=== PATIENT | male | born 1955 | race Two or more races ===

== ENCOUNTER → 2020-12-28 13:00 | Outpatient (BNVA) | payer BC, SELFPAY | PROVIDERS: PCP Internal Medicine; Visit Provider Internal Medicine Cardiovascular Disease | DX: I25.10 Atherosclerotic heart disease of native coronary artery without angina pectoris (principal); R06.00 Dyspnea, unspecified; R07.89 Other chest pain | CPT/HCPCS: 93005 ==

== ENCOUNTER → 2021-01-04 08:00 | Outpatient (REF) | payer BC, SELFPAY ==
--- NOTE | 2021-01-04 08:09 | CA_ITS ---
Acquisition Time: 2021-01-04 08:36:58 Total Exercise Time: 00:05:08 Test Indications: Chest Pain Medications: Protocol: SPEEDY Max HR: 148 BPM 94% of Pred: 156 BPM Max BP: 144/076 mmHG Max Work Load: 5.6 METS Exercise stress test using Speedy protocol. Total of 5 min 8 sec, METS 5.10, TAPHR up to 97 %. EKG with PVC's and PAC's, no ischemic changes seen during exercise or in recovery. Normotensive response to exercise. Test reviewed with Dr. Dorado. Referred By: Reji Harry Overread By: Francesca Gimenez NP
== END ==
LOC: HO.CARD 08:00
PROVIDERS: PCP Internal Medicine; Visit Provider Internal Medicine Cardiovascular Disease
DX: I25.10 Atherosclerotic heart disease of native coronary artery without angina pectoris (principal)
CPT/HCPCS: 93016; 93017; 93018

== ENCOUNTER 2021-01-12 11:42 | Outpatient (REF) | payer BC, SELFPAY ==
[2021-01-12 12:22] LABS: Hematocrit 37.6 % (42-52); Hemoglobin 12.8 g/dl (14.0-18.0); Mean Corpuscular Volume 88.1 fL (80-98); Mean Platelet Volume 11.8 fL (9.4-12.4); Platelet Count 156 X10*3/uL (160-400); Red Blood Count 4.27 X10*6/uL (4.60-5.80); Red Cell Distribution Width 13.9 % (11.0-16.0); White Blood Count 5.9 X10*3/uL (4.8-10.8)
[2021-01-12 12:28] LABS: INTERNATIONAL NORM RATIO 1.1 (0.9-1.1); Prothrombin Time 13.6 SEC (10.8-13.0)
[2021-01-12 12:42] LABS: Anion Gap 12 (12-20); Blood Urea Nitrogen 11 mg/dL (9-16); Calcium 9.2 mg/dL (8.4-10.2); Carbon Dioxide 28 mmol/L (22-29); Chloride 106 mmol/L (96-108); Estimated Glomerular Filt Rate > 60; Glucose Random 174 mg/dL (60-115); Potassium 3.6 mmol/L (3.3-5.1); Sodium 142 mmol/L (135-145)
== END 2021-01-12 11:43 | disposition home or self-care (01) ==
LOC: HO.LAB 11:42
PROVIDERS: PCP Internal Medicine; Visit Provider Internal Medicine Cardiovascular Disease
DX: I25.10 Atherosclerotic heart disease of native coronary artery without angina pectoris (principal)
CPT/HCPCS: 36415; 80048; 85027; 85610

== ENCOUNTER → 2021-01-26 14:10 | Outpatient (BNVA) | payer BC, SELFPAY | PROVIDERS: PCP Internal Medicine; Visit Provider Internal Medicine Cardiovascular Disease ==

== ENCOUNTER → 2021-02-02 13:02 | Outpatient (BNVA) | payer BC, SELFPAY | PROVIDERS: PCP Internal Medicine; Visit Provider Internal Medicine Pulmonary Disease ==

== ENCOUNTER 2021-02-16 09:41 | Outpatient (REF) | payer BC, SELFPAY ==
--- NOTE | 2021-02-16 16:20 | PFT_ITS ---
FLOWS: FEV1 of 73% of predicted at 2.56 L. FVC 72% of predicted at 3.30 L. FEV1 to FVC ratio of 0.78. No bronchodilator response. LUNG VOLUMES: Total lung capacity 73% of predicted at 5.12 L. Residual volume 75% of predicted at 1.77 L. Slow vital capacity 71% of predicted at 3.35 L. Expiratory reserve volume 38% of predicted at 0.52 L. Diffusion capacity is moderately decreased, diffusion capacity adjust to being mildly decreased after correction for alveolar ventilation. IMPRESSION: Moderate restrictive ventilatory defect with no bronchodilator response. Decreased expiratory reserve volume suggests extrathoracic restriction likely secondary to abdominal obesity. Decreased diffusion capacity together with decreased total lung capacity suggest underlying pulmonary parenchymal disease. Clinical correlation is advised. MD PAUL Hall/MODL / [phone]
== END 2021-02-16 09:42 | disposition home or self-care (01) ==
LOC: HO.RESP 09:41
PROVIDERS: PCP Internal Medicine; Visit Provider Internal Medicine Pulmonary Disease
DX: J44.9 Chronic obstructive pulmonary disease, unspecified (principal)
CPT/HCPCS: 94060; 94727; 94729

== ENCOUNTER → 2021-02-22 13:06 | Outpatient (BNVA) | payer BC, SELFPAY | PROVIDERS: PCP Internal Medicine; Visit Provider Internal Medicine Pulmonary Disease ==

== ENCOUNTER 2021-06-14 10:58 | Outpatient (REF) | payer MEDICARE, SELFPAY ==
[2021-06-14 12:34] LABS: MANUAL DIFF FLAG NO
[2021-06-14 12:35] LABS: Alanine Aminotransferase 13 U/L (0-40); Albumin Level 4.5 g/dL (3.5-5.0); Alkaline Phosphatase 81 U/L (39-117); Anion Gap 16 (12-20); Aspartate Amino Transferase 23 U/L (5-37); Bilirubin Total 0.6 mg/dL (0.0-1.0); Blood Urea Nitrogen 15 mg/dL (9-16); Calcium 9.9 mg/dL (8.4-10.2); Carbon Dioxide 21 mmol/L (22-29); Chloride 108 mmol/L (96-108); Cholesterol 115 mg/dL; Estimated Glomerular Filt Rate > 60; Glucose Fasting 144 mg/dL (60-99); HDL Cholesterol 37 mg/dL; LDL Cholesterol Calculated 61 mg/dl; Potassium 3.9 mmol/L (3.3-5.1); Sodium 141 mmol/L (135-145); Total Protein 7.5 g/dL (6.5-8.0); Triglycerides 85 mg/dL
[2021-06-14 12:36] LABS: Basophils Absolute Auto 0.1 X10*3/uL (0.0-0.2); Basophils Percent Auto 0.9 % (0-2); Eosinophils Absolute Auto 0.2 X10*3/uL (0.0-0.4); Eosinophils Percent Auto 2.6 % (0-4); Hematocrit 39.3 % (42-52); Hemoglobin 13.3 g/dl (14.0-18.0); Imm Gran Abs Auto 0.01 X10*3/uL (0.00-0.03); Imm Gran Pct Auto 0.2 % (0.0-0.4); Lymphocytes Absolute Auto 2.6 X10*3/uL (1.2-4.9); Lymphocytes Percent Auto 45.8 % (20-40); Mean Corpuscular HGB Conc 33.8 g/dl (31.0-36.0); Mean Corpuscular Hemoglobin 28.5 pg (27.0-33.0); Mean Corpuscular Volume 84.2 fL (80-98); Mean Platelet Volume 12.1 fL (9.4-12.4); Monocytes Absolute Auto 0.4 X10*3/uL (0.1-1.2); Monocytes Percent Auto 7.5 % (2-11); Neutrophils Absolute Auto 2.5 X10*3/uL (2.0-8.3); Platelet Count 166 X10*3/uL (160-400); Red Blood Count 4.67 X10*6/uL (4.60-5.80); Red Cell Distribution Width 14.6 % (11.0-16.0); White Blood Count 5.7 X10*3/uL (4.8-10.8)
[2021-06-14 12:40] LABS: Appearance Urine CLEAR; Color Urine YELLOW; Glucose Urine UA NEG (NEG); Leukocyte Esterase Urine NEG (NEG); Nitrite Urine NEG (NEG); UACC Culture Trigger NO; Urine Blood TRACE (NEG); Urine Ketones NEG (NEG); Urine Protein NEG (NEG-TRACE)
[2021-06-14 12:43] LABS: Estimated Average Glucose 166 mg/dL; Hemoglobin A1c % 7.4 %
[2021-06-14 12:52] LABS: Mucus Urine TRACE /LPF; RBC Urine 0-2 /HPF (0); WBC Urine 0 /HPF (0-4)
[2021-06-14 12:57] LABS: TSH reflex Free T4 0.82 uIU/mL (0.32-4.0)
[2021-06-14 13:14] LABS: Microalbum/Creatinine Ratio Ur 16.5 ug/mg cr
== END 2021-06-14 10:59 | disposition home or self-care (01) ==
LOC: HO.LAB 10:58
PROVIDERS: PCP Internal Medicine; Visit Provider Internal Medicine
DX: I10 Essential (primary) hypertension (principal); E11.9 Type 2 diabetes mellitus without complications; E78.00 Pure hypercholesterolemia, unspecified
CPT/HCPCS: 36415; 80053; 80061; 81001; 82043; 83036; 84443; 85025

== ENCOUNTER 2021-10-10 09:24 | Outpatient (REF) | payer MEDICARE, SELFPAY ==
[2021-10-10 09:56] LABS: MANUAL DIFF FLAG NO
[2021-10-10 10:05] LABS: Basophils Percent Auto 0.7 % (0-2); Eosinophils Absolute Auto 0.2 X10*3/uL (0.0-0.4); Eosinophils Percent Auto 2.7 % (0-4); Hematocrit 40.9 % (42.0-52.0); Hemoglobin 13.5 g/dl (14.0-18.0); Imm Gran Abs Auto 0.01 X10*3/uL (0.00-0.03); Imm Gran Pct Auto 0.2 % (0.0-0.4); Lymphocytes Absolute Auto 2.7 X10*3/uL (1.2-4.9); Mean Corpuscular Hemoglobin 28.5 pg (27.0-33.0); Mean Corpuscular Volume 86.5 fL (80.0-98.0); Mean Platelet Volume 11.3 fL (9.4-12.4); Monocytes Absolute Auto 0.5 X10*3/uL (0.1-1.2); Monocytes Percent Auto 8.2 % (2-11); Neutrophils Absolute Auto 2.3 x10*3/uL (2.0-8.3); Neutrophils Percent Auto 40.2 % (45-73); Platelet Count 158 X10*3/uL (160-400); Red Blood Count 4.73 X10*6/uL (4.60-5.80); Red Cell Distribution Width 14.4 % (11.0-16.0); White Blood Count 5.6 X10*3/uL (4.8-10.8)
[2021-10-10 10:26] LABS: Estimated Average Glucose 200 mg/dL; Hemoglobin A1c % 8.6 %
[2021-10-10 10:34] LABS: Alanine Aminotransferase 19 U/L (0-40); Albumin Level 4.3 g/dL (3.5-5.0); Alkaline Phosphatase 90 U/L (39-117); Anion Gap 10 (12-20); Aspartate Amino Transferase 21 U/L (5-37); Bilirubin Total 0.3 mg/dL (0.0-1.0); Blood Urea Nitrogen 12 mg/dL (9-16); Calcium 9.4 mg/dL (8.4-10.2); Carbon Dioxide 28 mmol/L (22-29); Chloride 107 mmol/L (96-108); Cholesterol 106 mg/dL; Estimated Glomerular Filt Rate > 60; Glucose Fasting 213 mg/dL (60-99); HDL Cholesterol 31 mg/dL; LDL Cholesterol Calculated 61 mg/dl; Potassium 4.1 mmol/L (3.3-5.1); Sodium 141 mmol/L (135-145); Total Protein 7.6 g/dL (6.5-8.0); Triglycerides 70 mg/dL
[2021-10-10 10:45] LABS: Appearance Urine CLEAR; Color Urine YELLOW; Glucose Urine UA NEG (NEG); Leukocyte Esterase Urine NEG (NEG); Nitrite Urine NEG (NEG); PH 5.5 (5.0-8.0); Specific Gravity - Urine 1.025 (1.005-1.025); UACC Culture Trigger NO; Urine Blood TRACE (NEG); Urine Ketones NEG (NEG); Urine Protein TRACE MG/DL (NEG-TRACE)
[2021-10-10 10:55] LABS: TSH reflex Free T4 0.89 uIU/mL (0.32-4.0)
[2021-10-10 10:56] LABS: WBC Urine 0-2 /HPF (0-4)
[2021-10-10 11:02] LABS: Creatinine Urine 199.47 mg/dL; Microalbum/Creatinine Ratio Ur 23.5 ug/mg cr
== END 2021-10-10 09:25 | disposition home or self-care (01) ==
LOC: HO.LAB 09:24
PROVIDERS: PCP Internal Medicine; Visit Provider Internal Medicine
DX: E78.00 Pure hypercholesterolemia, unspecified (principal); E11.9 Type 2 diabetes mellitus without complications; E55.9 Vitamin D deficiency, unspecified; I10 Essential (primary) hypertension
CPT/HCPCS: 36415; 80053; 80061; 81001; 82043; 82306; 83036; 84443; 85025

== ENCOUNTER 2022-01-08 10:06 | Outpatient (REF) | payer MEDICARE, SELFPAY ==
[2022-01-08 10:29] LABS: MANUAL DIFF FLAG NO
[2022-01-08 10:55] LABS: Basophils Percent Auto 0.7 % (0-2); Eosinophils Absolute Auto 0.1 X10*3/uL (0.0-0.4); Eosinophils Percent Auto 2.5 % (0-4); Hematocrit 38.7 % (42.0-52.0); Imm Gran Abs Auto 0.01 X10*3/uL (0.00-0.03); Imm Gran Pct Auto 0.2 % (0.0-0.4); Lymphocytes Absolute Auto 2.7 X10*3/uL (1.2-4.9); Lymphocytes Percent Auto 47.3 % (20-40); Mean Corpuscular HGB Conc 33.6 g/dl (31.0-36.0); Mean Corpuscular Hemoglobin 28.3 pg (27.0-33.0); Mean Corpuscular Volume 84.3 fL (80.0-98.0); Mean Platelet Volume 11.8 fL (9.4-12.4); Monocytes Absolute Auto 0.5 X10*3/uL (0.1-1.2); Neutrophils Absolute Auto 2.3 x10*3/uL (2.0-8.3); Neutrophils Percent Auto 41.3 % (45-73); Platelet Count 162 X10*3/uL (160-400); Red Blood Count 4.59 X10*6/uL (4.60-5.80); Red Cell Distribution Width 14.3 % (11.0-16.0); White Blood Count 5.7 X10*3/uL (4.8-10.8)
[2022-01-08 11:35] LABS: Cholesterol 179 mg/dL; HDL Cholesterol 39 mg/dL; LDL Cholesterol Calculated 118 mg/dl; Triglycerides 113 mg/dL
[2022-01-08 11:38] LABS: Vitamin D 25-OH Total 12.5 ng/mL (>30)
== END 2022-01-08 10:07 | disposition home or self-care (01) ==
LOC: HO.LAB 10:06
PROVIDERS: PCP Internal Medicine; Visit Provider Internal Medicine
DX: I10 Essential (primary) hypertension (principal); E78.00 Pure hypercholesterolemia, unspecified; E55.9 Vitamin D deficiency, unspecified
CPT/HCPCS: 36415; 80061; 82306; 85025

== ENCOUNTER 2022-03-28 09:50 | Outpatient (REF) | payer MEDICARE, SELFPAY ==
[2022-03-28 10:07] LABS: MANUAL DIFF FLAG NO
[2022-03-28 10:17] LABS: Basophils Percent Auto 0.7 % (0-2); Eosinophils Absolute Auto 0.2 X10*3/uL (0.0-0.4); Eosinophils Percent Auto 2.6 % (0-4); Hematocrit 37.2 % (42.0-52.0); Hemoglobin 12.5 g/dl (14.0-18.0); Imm Gran Abs Auto 0.02 X10*3/uL (0.00-0.03); Imm Gran Pct Auto 0.4 % (0.0-0.4); Lymphocytes Absolute Auto 2.5 X10*3/uL (1.2-4.9); Lymphocytes Percent Auto 44.4 % (20-40); Mean Corpuscular HGB Conc 33.6 g/dl (31.0-36.0); Mean Corpuscular Hemoglobin 28.3 pg (27.0-33.0); Mean Corpuscular Volume 84.2 fL (80.0-98.0); Monocytes Absolute Auto 0.4 X10*3/uL (0.1-1.2); Monocytes Percent Auto 6.9 % (2-11); Neutrophils Absolute Auto 2.6 x10*3/uL (2.0-8.3); Platelet Count 164 X10*3/uL (160-400); Red Blood Count 4.42 X10*6/uL (4.60-5.80); White Blood Count 5.7 X10*3/uL (4.8-10.8)
[2022-03-28 10:24] LABS: Estimated Average Glucose 189 mg/dL; Hemoglobin A1c % 8.2 %
[2022-03-28 10:51] LABS: Appearance Urine CLEAR; Color Urine YELLOW; Glucose Urine UA NEG (NEG); Leukocyte Esterase Urine NEG (NEG); Nitrite Urine NEG (NEG); PH 5.5 (5.0-8.0); Specific Gravity - Urine 1.025 (1.005-1.025); UACC Culture Trigger NO; Urine Blood TRACE (NEG); Urine Ketones 5 MG/DL (NEG); Urine Protein NEG (NEG-TRACE)
[2022-03-28 11:00] LABS: Alanine Aminotransferase 13 U/L (0-40); Albumin Level 4.4 g/dL (3.5-5.0); Alkaline Phosphatase 81 U/L (39-117); Anion Gap 12 (12-20); Aspartate Amino Transferase 20 U/L (5-37); Bilirubin Total 0.7 mg/dL (0.0-1.0); Blood Urea Nitrogen 11 mg/dL (9-16); Calcium 9.4 mg/dL (8.4-10.2); Carbon Dioxide 26 mmol/L (22-29); Chloride 107 mmol/L (96-108); Cholesterol 99 mg/dL; Estimated Glomerular Filt Rate > 60; Glucose Fasting 144 mg/dL (60-99); HDL Cholesterol 33 mg/dL; LDL Cholesterol Calculated 51 mg/dl; Potassium 4.2 mmol/L (3.3-5.1); Sodium 141 mmol/L (135-145); Total Protein 7.4 g/dL (6.5-8.0); Triglycerides 76 mg/dL
[2022-03-28 11:14] LABS: RBC Urine 0-2 /HPF (0); Squamous Epithelial Cell Urine TRACE /LPF; WBC Urine 0 /HPF (0-4)
[2022-03-28 11:18] LABS: TSH reflex Free T4 1.03 uIU/mL (0.32-4.0); Vitamin D 25-OH Total 26.6 ng/mL (>30)
[2022-03-28 12:45] LABS: Creatinine Urine 203.23 mg/dL; Microalbum/Creatinine Ratio Ur 10.3 ug/mg cr
== END 2022-03-28 09:51 | disposition home or self-care (01) ==
LOC: HO.LAB 09:50
PROVIDERS: PCP Internal Medicine; Visit Provider Internal Medicine
DX: E55.9 Vitamin D deficiency, unspecified (principal); E11.9 Type 2 diabetes mellitus without complications; E78.00 Pure hypercholesterolemia, unspecified; I10 Essential (primary) hypertension
CPT/HCPCS: 36415; 80053; 80061; 81001; 82043; 82306; 83036; 84443; 85025

== ENCOUNTER 2022-07-21 10:31 | Emergency (ER) | payer MEDICARE, SELFPAY ==
--- NOTE | ~2022-07-21 | XR_ITS ---
EXAMINATION: XR chest 1V CLINICAL INFORMATION: Reason for Exam CHEST PAIN COMPARISON: None TECHNIQUE: One view of the chest FINDINGS: Clear lungs. No pneumothorax or pleural effusion. Normal cardiomediastinal silhouette. Median sternotomy wires. Mediastinal surgical clips. XR/XR chest 1V Impression: * Clear lungs.
--- NOTE | 2022-07-21 10:33 | ECG_ITS ---
Test Reason : CHEST PAIN Blood Pressure : / mmHG Vent. Rate : 085 BPM Atrial Rate : 085 BPM P-R Int : 148 ms QRS Dur : 086 ms QT Int : 348 ms P-R-T Axes : 063 004 063 degrees QTc Int : 414 ms Sinus rhythm with occasional Premature ventricular complexes Nonspecific T wave abnormality Abnormal ECG No previous ECGs available Referred By: Generic ED Physician Electronically Signed By:MAU GLEZ MD
[2022-07-21 10:34] VITALS: BP 119/76; PULSE 88; RESP 18; TEMP 35.6; O2SAT 96; BMI 28.8
[2022-07-21 11:01] LABS: MANUAL DIFF FLAG NO
--- NOTE | 2022-07-21 11:02 | ED.CHESTPAIN ---
HPI - Chest Pain General Chief Complaint: Chest Pain Stated Complaint: chest pain Time Seen by Provider: 07/21/22 10:59 Source: patient Mode of arrival: ambulatory Limitations: no limitations History of Present Illness HPI narrative: 67 yo male with history of CAD s/p CABG two years ago, stable angina, HLD, DM, COPD, obesity, former smoker, eczema who presents to the ER for evaluation of sharp, stabbing chest pain for the couple of days, associated with productive cough, & sore throat. He states he was doing yard work when the pain started. It has been constant since. He radiates across his entire chest rest and both shoulders. He states the pain is worse with coughing and palpation of the chest wall. He feels like he has the flu. He is bringing up white phlegm. He quit 2 years ago after his cardiac surgery but states he is not on any inhalers or meds for his COPD. He denies any SOB or difficulty breathing. No fevers, nausea, vomiting or abdominal pain. MD complaint: chest pain Pertinent past history: coronary artery disease Onset (ago): day(s) (2) Timing of current episode: constant Prior episodes: Yes Onset: during exertion Pain location: substernal Pain radiation: left shoulder and right shoulder Severity: moderate Pain scale (0-10): 6 Quality: sharp Relieving factors: rest Exacerbating factors: inspiration and other (coughing) Context: recent illness (sore throat, runny nose) Associated symptoms: cough Treatment prior to arrival: none Risk Factors Coronary artery disease risk factors: diabetes, smoking history, hyperlipidemia and hypertension Thoracic aortic dissection risk factors: none Related Data Home Medications Medication Instructions Recorded Confirmed furosemide 40 mg tablet 40 mg PO QAM 11/22/20 04/18/22 Previous Rx's Medication Instructions Recorded albuterol sulfate 90 mcg/actuation 2 puff inhalation Q4-6H PRN 02/02/21 aerosol inhaler shortness of breath or wheezing 30 days #1 ea tiotropium 2.5 mcg-olodaterol 2.5 2 puff inhalation DAILY 30 days #1 02/22/21 mcg/actuation mist for inhalation ea (Stiolto Respimat) mometasone 0.1 % topical cream 1 appl topical DAILY 10 days #45 10/17/21 grams amlodipine 5 mg tablet 5 mg PO DAILY 90 days #90 tabs 04/18/22 aspirin 81 mg chewable tablet 81 mg PO DAILY 90 days #90 tabs 04/18/22 atorvastatin 80 mg tablet 80 mg PO BEDTIME 90 days #90 tabs 04/18/22 cholecalciferol (vitamin D3) 50 50 mcg PO DAILY 90 days #90 caps 04/18/22 mcg (2,000 unit) capsule clopidogrel 75 mg tablet 75 mg PO DAILY 90 days #90 tabs 04/18/22 metformin 1,000 mg tablet 1,000 mg PO BID 90 days #180 tabs 04/18/22 metoprolol tartrate 25 mg tablet 12.5 mg PO BID 90 days #90 tabs 04/18/22 triamcinolone acetonide 0.5 % 1 appl topical BID #45 grams 04/18/22 topical cream albuterol sulfate 90 mcg/actuation 1 inh inhalation QID PRN shortness 07/21/22 aerosol inhaler of breath or wheezing #6.7 grams benzonatate 100 mg capsule 100 mg PO TID PRN cough #30 caps 07/21/22 doxycycline hyclate 100 mg tablet 100 mg PO BID 7 days #14 tabs 07/21/22 prednisone 20 mg tablet 40 mg PO DAILY #10 tabs 07/21/22 Allergies Allergy/AdvReac Type Severity Reaction Status Date / Time No Known Allergies Allergy Verified 04/18/22 10:36 Review of Systems Review of Systems: Constitutional: No Fever, No Chills ENT/Mouth: + sore throat, +Rhinorrhea, No Swallowing Difficulty Eyes: No Eye Pain, No Swelling, No Redness Cardiovascular: + Chest Pain, No SOB, No Orthopnea, No Edema Respiratory: + Cough, +Sputum, No Wheezing, No dyspnea Gastrointestinal: No Nausea, No Vomiting, No Diarrhea, No abdominal Pain Genitourinary: No Dysuria, No Urinary Frequency, No Hematuria Musculoskeletal: No joint pain, No Myalgias Skin: No Skin Lesions, No rash Neuro: No Weakness, No Numbness, No Dizziness, No Headache Psych: No Anxiety/Panic, No Depression Heme/Lymph: No Bruising, No Lymphadenopathy Endocrine: No Polyuria, No Polydipsia [facility] Past Medical History Medical History (Updated 07/21/22 @ 12:31 by NASIR Rutledge) Coronary artery disease Diabetes mellitus Eczema of lower leg Ex-smoker Obesity (BMI 30-39.9) Overweight (BMI 25.0-29.9) Pure hypercholesterolemia Surgical History History of cardiac cath S/P CABG (coronary artery bypass graft) (~08/2020) Family History Family History Mother Heart problem Diabetes Father Heart problem Diabetes Other Family history non-contributory Social History Social History Housing: House Alcohol intake: former Patient Tobacco Use Status: Former Tobacco user Second Hand Smoke Exposure: Yes Advance Directives: No Advance Directives Information Provided: No service: No Current occupational status: retired Cognitive needs: No Hearing needs: No Vision needs: Yes Physical Exam Vital Signs: Vital Signs: Last Vital Signs Temp 96.1 F L 07/21/22 10:34 Pulse 86 07/21/22 11:31 Resp 16 07/21/22 11:31 BP 119/76 07/21/22 10:34 Pulse Ox 96 07/21/22 10:34 O2 Del Method 07/21/22 10:34 BMI result Body Mass Index 28.8 Appearance: Alert. Oriented X3. No acute distress. Eyes: Pupils equal, round and reactive to light. ENT: Pharynx normal. Neck: Normal inspection. Neck supple. CVS: Normal heart rate and rhythm. Pulses normal. Anterior chest wall tenderness throughout, mild. Respiratory: No respiratory distress. Breath sounds with expiratory wheeze in the left middle and upper lung rosario. Speaks in complete sentences. Abdomen: Soft and nontender. +BS x4 Skin: Skin warm and dry. Normal skin color. Normal skin turgor. No rashes. Extremities: No lower extremity edema. Neuro: Oriented X 3. No motor deficit. No sensory deficit. Course Course Course Narrative: 67-year-old male with history of CAD s/p CABG, stable angina, COPD, DM, HTN, HLD who presents to the ER with 2 days of chest pain associated with productive cough, runny nose and sore throat. Will need to rule out ACS - EKG without STEMI. Most likely URI related, doubt PE given his other symptoms. Not hypoxic or tachycardic. He has wheezing in his left lung - will treat with albuterol and dose of solumedrol and reassess. CXR, labs pending. Dispo pending results and improvement. Reevaluation(s) Reevaluation #1: No leukocytosis. Chest x-ray is clear. Troponin is 4. Confident this is not cardiac chest pain. Mild MERCEDEZ with BUN/Cr 16/1.41, glucose 272. Giving 1L IVF. His symptoms are more consistent with a viral illness and COPD exacerbation. His aeration is improved after steroids and a nebulizer treatment. His chest pain is improved after Tylenol. Reevaluation #2: Will plan to discharge him on prednisone, antibiotics, albuterol inhaler p.r.n. as well as Tessalon for coughing. He will follow-up with his PCP. He was instructed to come back to the ER if he has any new or worsening chest pains, any other worrisome signs or symptoms. Stable for DC. MDM - Chest Pain Medical Records Data Attestation: I reviewed the patient's medical records. Lab Data Attestation: I reviewed the patient's lab results. Result diagrams: 07/21/22 10:56 07/21/22 10:56 Labs: Lab Results 07/21/22 07/21/22 07/21/22 Range/Units 10:56 10:56 10:56 WBC 4.8 (4.8-10.8) X10*3/uL RBC 4.71 (4.60-5.80) X10*6/uL Hgb 13.1 L (14.0-18.0) g/dl Hct 39.6 L (42.0-52.0) % MCV 84.1 (80.0-98.0) fL MCH 27.8 (27.0-33.0) pg MCHC 33.1 (31.0-36.0) g/dl RDW 14.6 (11.0-16.0) % Plt Count 141 L (160-400) X10*3/uL MPV 11.6 (9.4-12.4) fL Immature Gran % (Auto) 0.2 (0.0-0.4) % Neut % (Auto) 52.1 (45-73) % Lymph % (Auto) 32.8 (20-40) % Forest % (Auto) 10.6 (2-11) % Eos % (Auto) 3.3 (0-4) % Baso % (Auto) 1.0 (0-2) % Lymph # (Auto) 1.6 (1.2-4.9) X10*3/uL Forest # (Auto) 0.5 (0.1-1.2) X10*3/uL Eos # (Auto) 0.2 (0.0-0.4) X10*3/uL Baso # (Auto) 0.1 (0.0-0.2) X10*3/uL Abs Immat Gran (auto) 0.01 (0.00-0.03) X10*3/uL Absolute Neuts (auto) 2.5 (2.0-8.3) x10*3/uL Absolute Nucleated RBC 0.000 (0.0-0.012) X10*3/uL Nucleated RBC % (auto) 0.0 (0.0-0.2) /100WBC Sodium 140 (135-145) mmol/L Potassium 4.3 (3.3-5.1) mmol/L Chloride 102 (96-108) mmol/L Carbon Dioxide 23 (22-29) mmol/L Anion Gap 19 (12-20) BUN 16 (9-16) mg/dL Creatinine 1.41 H (0.5-1.4) mg/dL Estim Creat Clear Calc 51.5 Estimated GFR 50 Random Glucose 272 H D (60-115) mg/dL Calcium 9.8 (8.4-10.2) mg/dL Troponin I High Sens 4.0 (<3.5-35.0) ng/L Procalcitonin ng/mL COVID-19 (FLORENCIA) (Negative) COVID-19 Clin Com Influenza Type A (KEVIN) (Negative) Influenza Type B (KEVIN) (Negative) Influenza A & B Note 07/21/22 07/21/22 07/21/22 Range/Units 10:56 10:56 11:50 WBC (4.8-10.8) X10*3/uL RBC (4.60-5.80) X10*6/uL Hgb (14.0-18.0) g/dl Hct (42.0-52.0) % MCV (80.0-98.0) fL MCH (27.0-33.0) pg MCHC (31.0-36.0) g/dl RDW (11.0-16.0) % Plt Count (160-400) X10*3/uL MPV (9.4-12.4) fL Immature Gran % (Auto) (0.0-0.4) % Neut % (Auto) (45-73) % Lymph % (Auto) (20-40) % Forest % (Auto) (2-11) % Eos % (Auto) (0-4) % Baso % (Auto) (0-2) % Lymph # (Auto) (1.2-4.9) X10*3/uL Forest # (Auto) (0.1-1.2) X10*3/uL Eos # (Auto) (0.0-0.4) X10*3/uL Baso # (Auto) (0.0-0.2) X10*3/uL Abs Immat Gran (auto) (0.00-0.03) X10*3/uL Absolute Neuts (auto) (2.0-8.3) x10*3/uL Absolute Nucleated RBC (0.0-0.012) X10*3/uL Nucleated RBC % (auto) (0.0-0.2) /100WBC Sodium (135-145) mmol/L Potassium (3.3-5.1) mmol/L Chloride (96-108) mmol/L Carbon Dioxide (22-29) mmol/L Anion Gap (12-20) BUN (9-16) mg/dL Creatinine (0.5-1.4) mg/dL Estim Creat Clear Calc Estimated GFR Random Glucose (60-115) mg/dL Calcium (8.4-10.2) mg/dL Troponin I High Sens (<3.5-35.0) ng/L Procalcitonin 0.20 ng/mL COVID-19 (FLORENCIA) Negative (Negative) COVID-19 Clin Com See Note Influenza Type A (KEVIN) Negative (Negative) Influenza Type B (KEVIN) Negative (Negative) Influenza A & B Note See Note ECG Data ECG #1: Attestation: I personally reviewed and interpreted this ECG as follows: ECG interpretation date: 07/21/22 ECG interpretation time: 11:06 Prior ECG tracings: available for review Interpretation: Sinus rhythm with occasional PVCs, ventricular rate 85 beats per minute, normal NC interval, T-wave inversion in V1 and V2, no ST segment elevations or depressions. Discharge Plan Discharge Clinical Impression: Acute chest wall pain, COPD exacerbation, Acute viral syndrome Patient Disposition: Home, Self-Care Instructions: COPD (Chronic Obstructive Pulmonary Disease) (ED), Viral Syndrome (ED), Chest Wall Pain (ED) Additional Instructions: Your lab workup today was unremarkable. You had some wheezing on examination consistent with COPD. Recommend taking the prescribed steroids to help your lungs. Take the prescribed antibiotic for COPD exacerbation. Your x-ray did not show any evidence of pneumonia. Urine negative for influenza and COVID-19. Your symptoms are most likely due to another viral illness. Rest and drink plenty of fluids. Take [id number] cold and flu medications as needed for your symptoms. Prescriptions: New albuterol sulfate 90 mcg/actuation HFA aerosol inhaler 1 inh inhalation QID PRN (Reason: shortness of breath or wheezing) Qty: 6.7 0RF prednisone 20 mg tablet 40 mg PO DAILY Qty: 10 0RF doxycycline hyclate 100 mg tablet 100 mg PO BID 7 Days Qty: 14 0RF benzonatate 100 mg capsule 100 mg PO TID PRN (Reason: cough) Qty: 30 0RF No Action mometasone 0.1 % cream 1 appl topical DAILY 10 Days Qty: 45 1RF furosemide 40 mg tablet 40 mg PO QAM amlodipine 5 mg tablet 5 mg PO DAILY 90 Days Qty: 90 1RF aspirin 81 mg tablet,chewable 81 mg PO DAILY 90 Days Qty: 90 3RF atorvastatin 80 mg tablet 80 mg PO BEDTIME 90 Days Qty: 90 1RF clopidogrel 75 mg tablet 75 mg PO DAILY 90 Days Qty: 90 1RF metformin 1,000 mg tablet 1,000 mg PO BID 90 Days Qty: 180 1RF metoprolol tartrate 25 mg tablet 12.5 mg PO BID 90 Days Qty: 90 3RF triamcinolone acetonide 0.5 % cream 1 appl topical BID Qty: 45 1RF cholecalciferol (vitamin D3) 50 mcg (2,000 unit) capsule 50 mcg PO DAILY 90 Days Qty: 90 3RF albuterol sulfate 90 mcg/actuation HFA aerosol inhaler 2 puff inhalation Q4-6H PRN (Reason: shortness of breath or wheezing) 30 Days Qty: 1 3RF Stiolto Respimat 2.5-2.5 mcg/actuation mist 2 puff inhalation DAILY 30 Days Qty: 1 6RF
[2022-07-21 11:03] LABS: Basophils Absolute Auto 0.1 X10*3/uL (0.0-0.2); Eosinophils Absolute Auto 0.2 X10*3/uL (0.0-0.4); Eosinophils Percent Auto 3.3 % (0-4); Hematocrit 39.6 % (42.0-52.0); Hemoglobin 13.1 g/dl (14.0-18.0); Imm Gran Abs Auto 0.01 X10*3/uL (0.00-0.03); Imm Gran Pct Auto 0.2 % (0.0-0.4); Lymphocytes Absolute Auto 1.6 X10*3/uL (1.2-4.9); Lymphocytes Percent Auto 32.8 % (20-40); Mean Corpuscular HGB Conc 33.1 g/dl (31.0-36.0); Mean Corpuscular Hemoglobin 27.8 pg (27.0-33.0); Mean Corpuscular Volume 84.1 fL (80.0-98.0); Mean Platelet Volume 11.6 fL (9.4-12.4); Monocytes Absolute Auto 0.5 X10*3/uL (0.1-1.2); Monocytes Percent Auto 10.6 % (2-11); Neutrophils Absolute Auto 2.5 x10*3/uL (2.0-8.3); Neutrophils Percent Auto 52.1 % (45-73); Platelet Count 141 X10*3/uL (160-400); Red Blood Count 4.71 X10*6/uL (4.60-5.80); Red Cell Distribution Width 14.6 % (11.0-16.0); White Blood Count 4.8 X10*3/uL (4.8-10.8)
[2022-07-21 11:18] LABS: COVID-19 Test Negative (Negative); IDNOW Serial# 16C4AD1C
[2022-07-21 11:19] LABS: Anion Gap 19 (12-20); Blood Urea Nitrogen 16 mg/dL (9-16); Calcium 9.8 mg/dL (8.4-10.2); Carbon Dioxide 23 mmol/L (22-29); Chloride 102 mmol/L (96-108); Creatinine Clr Calc Pharmacy 51.5; Estimated Glomerular Filt Rate 50; Glucose Random 272 mg/dL (60-115); Potassium 4.3 mmol/L (3.3-5.1); Sodium 140 mmol/L (135-145)
[2022-07-21] MEDS: Albuterol Sulfate 2.5 MG, Albuterol Sulfate (0.083%) 2.5 MG 5 MG INHALE (11:30)
[2022-07-21 11:31] VITALS: PULSE 86; RESP 16; O2SAT 96
[2022-07-21] MEDS: 0.9 % Sodium Chloride 1,000 ML 999 ML IVCONT (12:04)
[2022-07-21] MEDS: Aspirin 81 MG TAB.CHEW 162 MG PO (12:08)
[2022-07-21] MEDS: methylPREDNISolone Sod Succ 40 MG/ML VIAL IVPUSH (12:08)
[2022-07-21] MEDS: Acetaminophen 325 MG TABLET 975 MG PO (12:08)
[2022-07-21 12:10] LABS: IDNOW Serial# 9DB6401D; Influenza A Negative (Negative); Influenza B2 Negative (Negative)
[2022-07-21 14:05] VITALS: BP 125/67; PULSE 84; RESP 14; TEMP 36.8; O2SAT 96
== END 2022-07-21 14:09 | disposition home or self-care (01) ==
PROVIDERS: Physician Assistant; Emergency Provider Emergency Medicine; PCP Internal Medicine
DX: B34.9 Viral infection, unspecified (principal); R07.89 Other chest pain; J44.1 Chronic obstructive pulmonary disease with (acute) exacerbation; Z20.822 Contact with and (suspected) exposure to COVID-19; E11.9 Type 2 diabetes mellitus without complications; I10 Essential (primary) hypertension; E78.5 Hyperlipidemia, unspecified; Z87.891 Personal history of nicotine dependence; Z79.02 Long term (current) use of antithrombotics/antiplatelets; Z79.84 Long term (current) use of oral hypoglycemic drugs; Z79.899 Other long term (current) drug therapy
CPT/HCPCS: 36415; 71045; 80048; 84145; 84484; 85025; 87502; 87635; 93005; 94640; 96374; 99284; 99285; J2920

== ENCOUNTER 2022-12-19 10:53 | Outpatient (REF) | payer MEDICARE, SELFPAY ==
[2022-12-19 11:14] LABS: MANUAL DIFF FLAG NO
[2022-12-19 11:48] LABS: Estimated Average Glucose 192 mg/dL; Hemoglobin A1c % 8.3 %
[2022-12-19 11:56] LABS: Basophils Absolute Auto 0.1 X10*3/uL (0.0-0.2); Eosinophils Absolute Auto 0.2 X10*3/uL (0.0-0.4); Eosinophils Percent Auto 2.4 % (0-4); Hematocrit 40.7 % (42.0-52.0); Hemoglobin 13.4 g/dl (14.0-18.0); Imm Gran Abs Auto 0.01 X10*3/uL (0.00-0.03); Imm Gran Pct Auto 0.2 % (0.0-0.4); Lymphocytes Percent Auto 48.6 % (20-40); Mean Corpuscular HGB Conc 32.9 g/dl (31.0-36.0); Mean Corpuscular Hemoglobin 27.9 pg (27.0-33.0); Mean Corpuscular Volume 84.8 fL (80.0-98.0); Mean Platelet Volume 12.2 fL (9.4-12.4); Monocytes Absolute Auto 0.4 X10*3/uL (0.1-1.2); Monocytes Percent Auto 6.5 % (2-11); Neutrophils Absolute Auto 2.5 x10*3/uL (2.0-8.3); Neutrophils Percent Auto 41.3 % (45-73); Platelet Count 183 X10*3/uL (160-400); Red Cell Distribution Width 14.5 % (11.0-16.0); White Blood Count 6.1 X10*3/uL (4.8-10.8)
[2022-12-19 11:58] LABS: Appearance Urine Clear; Color Urine Yellow; Glucose Urine UA 100 mg/dL (Negative); Leukocyte Esterase Urine Negative (Negative); Nitrite Urine Negative (Negative); Urine Blood Negative (Negative); Urine Ketones Trace mg/dL (Negative); Urine Protein Negative (Neg-Trace)
[2022-12-19 12:11] LABS: Alanine Aminotransferase 16 U/L (0-40); Albumin Level 4.5 g/dL (3.5-5.0); Alkaline Phosphatase 76 U/L (39-117); Anion Gap 16 (12-20); Aspartate Amino Transferase 27 U/L (5-37); Bilirubin Total 0.7 mg/dL (0.0-1.0); Blood Urea Nitrogen 15 mg/dL (9-16); Carbon Dioxide 26 mmol/L (22-29); Chloride 106 mmol/L (96-108); Cholesterol 127 mg/dL; Estimated Glomerular Filt Rate > 60; Glucose Fasting 183 mg/dL (60-99); HDL Cholesterol 39 mg/dL; LDL Cholesterol Calculated 73 mg/dl; Potassium 4.5 mmol/L (3.3-5.1); Sodium 143 mmol/L (135-145); Total Protein 7.4 g/dL (6.5-8.0); Triglycerides 77 mg/dL
[2022-12-19 12:16] LABS: TSH reflex Free T4 1.16 uIU/mL (0.32-4.0); Vitamin D 25-OH Total 50.2 ng/mL (>30)
[2022-12-19 12:45] LABS: Creatinine Urine 221.45 mg/dL
== END 2022-12-19 10:54 | disposition home or self-care (01) ==
LOC: HO.LAB 10:53
PROVIDERS: PCP Internal Medicine; Visit Provider Internal Medicine
DX: E78.00 Pure hypercholesterolemia, unspecified (principal); E11.9 Type 2 diabetes mellitus without complications; E55.9 Vitamin D deficiency, unspecified; I10 Essential (primary) hypertension
CPT/HCPCS: 36415; 80053; 80061; 81003; 82043; 82306; 83036; 84443; 85025

== ENCOUNTER 2023-01-01 12:00 | Outpatient (REF) | payer MEDICARE, SELFPAY ==
[2023-01-01 14:14] LABS: Sickle Cell Scr POSITIVE (NEGATIVE)
[2023-01-04 15:13] LABS: Hematocrit 39.2 % (38.5-50.0); Hemoglobin 13.3 g/dL (13.2-17.1); MCH 28.6 pg (27.0-33.0); MCV 84.3 fL (80.0-100.0); RBC 4.65 Million/uL (4.20-5.80); RDW 14.3 % (11.0-15.0)
== END 2023-01-01 12:01 | disposition home or self-care (01) ==
LOC: HO.LAB 12:00
PROVIDERS: PCP Internal Medicine; Visit Provider Internal Medicine
DX: D64.9 Anemia, unspecified (principal); Z83.2 Family history of diseases of the blood and blood-forming organs and certain disorders involving the immune mechanism
CPT/HCPCS: 36415; 83020; 85014; 85018; 85041; 85660

== ENCOUNTER → 2023-03-21 13:49 | Outpatient (BNVA) | payer MEDICARE, SELFPAY | PROVIDERS: PCP Internal Medicine; Referring Provider Internal Medicine; Visit Provider Nurse Practitioner Family | DX: I25.118 Atherosclerotic heart disease of native coronary artery with other forms of angina pectoris (principal); I49.3 Ventricular premature depolarization; E78.00 Pure hypercholesterolemia, unspecified; E11.9 Type 2 diabetes mellitus without complications; Z95.1 Presence of aortocoronary bypass graft | CPT/HCPCS: 93005; 99212 ==

== ENCOUNTER 2023-03-25 10:00 | Outpatient (REF) | payer MEDICARE, SELFPAY ==
[2023-03-25 10:18] LABS: MANUAL DIFF FLAG NO
[2023-03-25 10:44] LABS: Basophils Absolute Auto 0.1 X10*3/uL (0.0-0.2); Basophils Percent Auto 0.9 % (0-2); Eosinophils Absolute Auto 0.2 X10*3/uL (0.0-0.4); Hematocrit 40.5 % (42.0-52.0); Hemoglobin 13.5 g/dl (14.0-18.0); Imm Gran Abs Auto 0.01 X10*3/uL (0.00-0.03); Imm Gran Pct Auto 0.2 % (0.0-0.4); Lymphocytes Absolute Auto 2.6 X10*3/uL (1.2-4.9); Lymphocytes Percent Auto 44.4 % (20-40); Mean Corpuscular HGB Conc 33.3 g/dl (31.0-36.0); Mean Corpuscular Hemoglobin 28.3 pg (27.0-33.0); Mean Corpuscular Volume 84.9 fL (80.0-98.0); Mean Platelet Volume 12.1 fL (9.4-12.4); Monocytes Absolute Auto 0.4 X10*3/uL (0.1-1.2); Monocytes Percent Auto 6.9 % (2-11); Neutrophils Absolute Auto 2.6 x10*3/uL (2.0-8.3); Neutrophils Percent Auto 44.6 % (45-73); Platelet Count 174 X10*3/uL (160-400); Red Blood Count 4.77 X10*6/uL (4.60-5.80); Red Cell Distribution Width 14.6 % (11.0-16.0); White Blood Count 5.8 X10*3/uL (4.8-10.8)
[2023-03-25 10:55] LABS: Appearance Urine Clear; Color Urine Yellow; Glucose Urine UA >=1000 mg/dL (Negative); Leukocyte Esterase Urine Negative (Negative); Nitrite Urine Negative (Negative); PH 5.5 (5.0-9.0); UMIC TRIGGER UACC YES; Urine Blood Negative (Negative); Urine Ketones Negative (Negative); Urine Protein Negative (Neg-Trace)
[2023-03-25 11:02] LABS: Bacteria Urine None Seen (None Seen); Hyaline Casts Urine 0-2 /LPF (0-2); RBC Urine 0-2 /HPF (0-2); Squamous Epithelial Cell Urine 0-2 /HPF (0-2); WBC Urine 0-5 /HPF (0-5)
[2023-03-25 11:23] LABS: Estimated Average Glucose 137 mg/dL; Hemoglobin A1c % 6.4 %
[2023-03-25 11:52] LABS: Creatinine Urine 117.63 mg/dL
[2023-03-25 11:56] LABS: Alanine Aminotransferase 14 U/L (0-40); Albumin Level 4.4 g/dL (3.5-5.0); Alkaline Phosphatase 65 U/L (39-117); Anion Gap 16 (12-20); Aspartate Amino Transferase 22 U/L (5-37); Bilirubin Total 0.7 mg/dL (0.0-1.0); Blood Urea Nitrogen 19 mg/dL (9-16); Calcium 10.1 mg/dL (8.4-10.2); Carbon Dioxide 23 mmol/L (22-29); Chloride 108 mmol/L (96-108); Cholesterol 99 mg/dL; Estimated Glomerular Filt Rate > 60; Glucose Fasting 131 mg/dL (60-99); HDL Cholesterol 33 mg/dL; LDL Cholesterol Calculated 53 mg/dl; Potassium 3.7 mmol/L (3.3-5.1); Sodium 143 mmol/L (135-145); Total Protein 7.7 g/dL (6.5-8.0); Triglycerides 67 mg/dL
[2023-03-25 12:13] LABS: TSH reflex Free T4 0.98 uIU/mL (0.32-4.0); Vitamin D 25-OH Total 60.8 ng/mL (>30)
== END 2023-03-25 10:01 | disposition home or self-care (01) ==
LOC: HO.LAB 10:00
PROVIDERS: PCP Internal Medicine; Visit Provider Internal Medicine
DX: I10 Essential (primary) hypertension (principal); E55.9 Vitamin D deficiency, unspecified; E11.9 Type 2 diabetes mellitus without complications; E78.00 Pure hypercholesterolemia, unspecified
CPT/HCPCS: 36415; 80053; 80061; 81001; 82043; 82306; 83036; 84443; 85025

== ENCOUNTER → 2023-03-28 14:51 | Outpatient (REF) | payer MEDICARE, SELFPAY ==
--- NOTE | 2023-03-28 14:55 | CA_ITS ---
Transthoracic Echocardiogram Patient (Last, First, Middle): Aram Mcnamara, Gender: Male Date of : 1955 Age: 68 Procedure Date: 03/28/2023 Procedure Type: Transthoracic Echocardiogram Location: OP Height: 177.8 cm Weight: 88.91 kg BSA: 2.07 m2 Heart Rate: 60 bpm BP: 126 / 80 mmHg Brick Paver: SB Referring MD: Jessica Fitzpatrick [employer] Symptoms: Z95.1 - Presence of aortocoronary bypass graft Study Quality: Technically Difficult ECG Rhythm: Sinus with PVCs Conclusions: - The left ventricular systolic function is moderately decreased. The visually estimated ejection fraction is between 35-40%. - There is evidence of regional wall motion abnormalities. - No obvious valvular pathology seen on this study. Findings Procedure Information The quality of the study was technically difficult. The study quality is limited by patients body habitus. Left Ventricle Normal left ventricular cavity size. There is normal left ventricular wall thickness. The left ventricular systolic function is moderately decreased. The visually estimated ejection fraction is between 35-40%. There is evidence of regional wall motion abnormalities. Evidence suggests grade I (mild) diastolic dysfunction. Wall Motion Rest Echo Findings The inferoseptal wall and mid inferior segment are hypokinetic. The inferolateral wall and basal inferior segment are akinetic. Right Ventricle Normal right ventricular cavity size. There is moderately decreased right ventricular systolic function. Atria Both atria are normal in size. Aortic Valve There is a normal trileaflet aortic valve. There is mild calcification of the aortic valve. There is no aortic valve stenosis. There is no aortic valve regurgitation. Mitral Valve There is mild mitral annular calcification. There is mild mitral valve regurgitation. There is no mitral valve stenosis. Pulmonic Valve The pulmonic valve is likely normal. Tricuspid Valve There is mild tricuspid valve regurgitation. There is no evidence of pulmonary hypertension. Great Vessels The asc aorta is normal in size. Venous The inferior vena cava is normal in size and collapses greater than 50% with inspiration. Prior Study Comparison No prior study available for comparison. Recommendations, Care & Conclusions No obvious valvular pathology seen on this study. Measurements 2D Linear Measurements IVSd: 0.87 0.6-0.9/0.6-1.0 cm LVIDd: 5.46 3.9-5.3/4.2-5.9 cm LVIDd Index: 2.64 2.4-3.2/2.2-3.1 cm/m2 LVIDs: 4.52 2.0-3.6 cm LVPWd: 0.80 0.7-1.1 cm LA Diam: 4.40 2.7-3.8/3.0-4.0 cm LAIDs Index: 2.13 1.5-2.3 cm/m2 LV Mass: 206.89 67-162/88-224 g LV Mass Index: 99.95 43-95/49-115 g/m2 LVOT Diam: 2.50 3.0+(-)1.3 cm 2D Systolic Function EF 4C: 38.90 >55% Mitral Valve MV VTI: 0.35 MV Pk Home: 0.76 MV Mn Home: 0.49 MV Pk Grad: 2.00 MV Mn Grad: 1.00 MV Pk E: 0.77 MV PK A: 0.80 MV Decel Time: 190.00 E/A: 1.00 E'Lateral: 7.94 E'Medial: 6.20 E/E' Med: 12.40 E/E' Lat: 9.70 PHT: 56.00 MVA PHT: 3.93 MVA Continuity: 2.16 Decel Mineral: 4.06 Aortic Valve AoV Pk Home: 0.96 AoV Pk Grad: 4.00 DOUGLAS: 3.60 LVOT LVOT Pk Home: 0.70 LVOT Mn Home: 0.49 LVOT VTI: 0.15 LVOT Pk Grad: 2.00 LVOT Mn Grad: 1.00 LVOT Diam: 2.50 LVOT Area: 4.91 Diastolic Function MV Pk E: 0.77 MV Pk A: 0.80 E/A: 1.00 E'Medial: 6.20 E/E' Med: 12.40 E' Laterial: 7.94 E/E' Lat: 9.70 Right Ventricle TAPSE (mm): 10.10 TVS' Home: 6.70 Tricuspid Valve TR Pk Home: 2.29 TR Pk Grad: 21.00 RA Press: 3.00 RVSP: 24.00 Great Vessels Aorta Sinus of Valsalva: 3.80 2.0-3.5 cm Ao Asc: 3.10 2.1-3.4 cm Pulmonary Valve PV Pk Home: 0.71 Peak PV Grad: 2.00 Updated in Other Vendor System with Status of Final Kendrick Dorado MD electronically signed on 03/30/2023 10:10:15 AM with status of Final
--- NOTE | 2023-03-28 14:55 | HM_ITS ---
* Total monitoring time about 3 days. * Underlying rhythm is sinus. Average ventricular rate 71/Min. Range 46 to 109/Min. * Frequent ventricular ectopy with a burden of 1.8%. Two couplets. * Rare supraventricular ectopy. * No significant pauses or AV blocks. * No patient markers or events in diary. MTDD
== END ==
LOC: HO.CARD 14:51
PROVIDERS: PCP Internal Medicine; Visit Provider Nurse Practitioner Family
DX: I49.3 Ventricular premature depolarization (principal); Z95.1 Presence of aortocoronary bypass graft
CPT/HCPCS: 93242; 93306

== ENCOUNTER → 2023-04-22 10:01 | Outpatient (REF) | payer MEDICARE, SELFPAY ==
--- NOTE | ~2023-04-22 | NM_ITS ---
EXERCISE MYOCARDIAL PERFUSION STUDY INDICATION: Coronary disease, history of bypass surgery, cardiomyopathy, assess for ischemia TECHNIQUE: The patient was brought in for an exercise perfusion study on 04/22/2023. Patient performed exercise as per Justyn protocol and was injected 25 mCi of sestamibi once target heart rate was achieved. Images were obtained using the SPECT gamma camera interlaced with the gating device. Images were obtained in supine position. Resting perfusion study was performed on 04/24/2023. Patient was administered 25 mCi of sestamibi intravenously at rest. Images were then obtained in supine position. Images were processed with the software and compared side to side in short axis, horizontal long axis and vertical long axis views. Total DLP 86mGy-cm. FINDINGS: Raw images were reviewed. The stress perfusion study showed diminished tracer uptake in the basal to mid lateral wall, inferolateral wall. There is some improvement with CT attenuation correction and could indicate components of soft tissue attenuation artifact. There is suggestion of subdiaphragmatic tracer uptake The gated study shows normal LV systolic function with calculated LVEF of 64%. LV cavity is normal in size. The gated study shows diminished contractility in the basal to mid lateral/inferolateral wall. Resting study shows diminished tracer uptake in the basal to mid inferior/inferolateral wall.. There is improvement with CT attenuation correction. There is also suggestion of sub diaphragmatic tracer uptake. Gating at rest reveals LVEF 48%. There is reduced contractility in the distal anterior wall and ocular that is artifactual. The findings are consistent with fixed defect in the basal to mid inferolateral and adjacent lateral wall. NM/NM cardiolite stress test IMPRESSION: 1. Myocardial perfusion imaging study shows transmural infarction involving the basal to mid inferolateral/adjacent lateral wall. 2. Gated LVEF is 64% during stress and 48% during rest. Correlate with echocardiogram. 3. Transient ischemic dilatation not present. EKG component of the test reported separately.
--- NOTE | 2023-04-22 10:05 | CA_ITS ---
Acquisition Time: 2023-04-22 10:24:50 Total Exercise Time: 00:05:58 Test Indications: ABN ECHO, ABN EKG Medications: SEE H Protocol: SPEEDY Max HR: 144 BPM 94% of Pred: 153 BPM Max BP: 148/078 mmHG Max Work Load: 7.0 METS Exercise stress test exercise 5 min 58 sec of Speedy protocol achieivng 94% MPHR, with mild SOB, without chest discofmort, without arrhythmias, with normotensive response to exercise, without EKG changes. Nuclear images pending. Test reviewed with Dr. Harry. Referred By: Jessica Fitzpatrick Overread By: Reji Harry
== END ==
LOC: HO.CARD 10:01
PROVIDERS: PCP Internal Medicine; Visit Provider Nurse Practitioner Family
DX: I25.118 Atherosclerotic heart disease of native coronary artery with other forms of angina pectoris (principal); R93.1 Abnormal findings on diagnostic imaging of heart and coronary circulation; Z95.1 Presence of aortocoronary bypass graft
CPT/HCPCS: 78452; 93017; A9500

== ENCOUNTER → 2023-04-22 10:05 | Outpatient (BNV) | payer MEDICARE, SELFPAY | PROVIDERS: PCP Internal Medicine; Visit Provider Internal Medicine Cardiovascular Disease | DX: I25.118 Atherosclerotic heart disease of native coronary artery with other forms of angina pectoris (principal) | CPT/HCPCS: 78452; 93016; 93018 ==

== ENCOUNTER → 2023-05-23 09:34 | Outpatient (BNVA) | payer MEDICARE, SELFPAY | PROVIDERS: PCP Internal Medicine; Referring Provider Internal Medicine; Visit Provider Internal Medicine Cardiovascular Disease ==

== ENCOUNTER 2023-06-05 12:08 | Outpatient (AMB) | payer MEDICARE, SELFPAY ==
[2023-06-05 12:20] VITALS: BP 110/76; PULSE 64; O2SAT 93; BMI 31.6
--- NOTE | 2023-06-05 12:20 | A.OFFPC_ITS ---
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 Required: No Accompanied by: Self / Same As Patient Allergies No Known Allergies Allergy (Verified 06/05/23 12:53) Medication List - Last Reconciled 06/05/23 by Mike Myers MD albuterol sulfate 90 mcg/actuation 1 inh inhalation QID PRN albuterol sulfate 90 mcg/actuation 2 puffs inhalation Q4-6H PRN 30 days aspirin 81 mg PO DAILY 90 days atorvastatin 80 mg PO BEDTIME 90 days benzonatate 100 mg PO TID PRN cholecalciferol (vitamin D3) 50 mcg PO DAILY 90 days clopidogrel 75 mg PO DAILY 90 days Farxiga (dapagliflozin propanediol) 5 mg PO QAM 30 days NS metformin 1,000 mg PO BID 90 days metoprolol succinate ER 25 mg PO DAILY mometasone 0.1% 1 appl topical DAILY 10 days sacubitril-valsartan 24-26 mg (Entresto) 1 tab PO BID tiotropium-olodaterol 2.5-2.5 mcg/actuation (Stiolto Respimat) 2 puffs inhalation DAILY 30 days triamcinolone acetonide 0.5% 1 appl topical BID Tobacco use date assessed: 06/05/23 Fall risk assessment: No Falls in past year Last assessed Fall Risk: 06/05/23 Dental Screening Dental Screen Date: 06/05/23 Did you have a dental visit in the last 12 months?: No Did you have a dental problem in the last 6 months where you did not have access to dental care?: No Was dental information given to patient?: No HPI PE HPI Details Patient comes in today for his annual physical examination States that he feels okay He denies any headaches or dizziness Denies any chest pains, no SOB No nausea/vomiting, no abdominal pain No change in bowel habits noted Denies any acute urinary symptoms His daughter states that he has been complaining about his toenail a lot lately - states that his toenails, especially on his right big toe, is crooked /disfigured and sometimes hurt - would like to know what can be done for this Would also like to know if we can give him any information about the stress test that he did with cardiology last month - states that they have not received any call backs from cardiology so far to tell them how he did on his test Relates that he had a screening colonoscopy done somewhere in [place] but that was about 10 years ago or more now [facility] Medical History Coronary artery disease Diabetes mellitus Eczema of lower leg Ex-smoker Obesity (BMI 30-39.9) Overweight (BMI 25.0-29.9) Pure hypercholesterolemia Sickle cell trait Vitamin D deficiency Surgical History History of cardiac cath S/P CABG (coronary artery bypass graft) (~08/2020) Family History Mother Heart problem Diabetes Father Heart problem Diabetes Other Family history non-contributory Social History Housing: House Alcohol intake: former Patient Tobacco Use Status: Former Tobacco user e-Cigarette/Vaping Use: Never Used Second Hand Smoke Exposure: Yes service: No Current occupational status: retired Cognitive needs: No Hearing needs: No Vision needs: Yes Questionnaire PHQ-9 Over the last 2 weeks, how often have you been bothered by any of the following problems? 1. Little interest or pleasure in doing things: not at all 2. Feeling down, depressed, or hopeless: not at all 3. Trouble falling or staying asleep, or sleeping too much: not at all 4. Feeling tired or having little energy: not at all 5. Poor appetite or overeating: not at all 6. Feeling bad about yourself - or that you are a failure or have let yourself or your family down: not at all 7. Trouble concentrating on things, such as reading the newspaper or watching television: not at all 8. Moving or speaking so slowly that other people could have noticed. Or the opposite - being so fidgety or restless that you have been moving around a lot more than usual: not at all 9. Thoughts that you would be better off or of hurting yourself in some way: not at all Total score: 0 Depression Screening Interpretation: Negative [id number] - PHQ-9 Billing: Yes Source: Developed by Drs. Zachary Winston, Kaylene Rich, Gabe Domínguez and colleagues, with an educational vinita from [employer]. Thrive Questionnaire Date Thrive assessed: 06/05/23 I am a: Patient What is your living situation today?: I have a steady place to live Within the past 12 months, did the food you bought not last and you didn't have the money to get more?: Never true Within the past 12 months, did you worry whether your food would run out before you got money to buy more?: Never true Do you have trouble paying for medicines?: No Do you have trouble getting transportation to medical appointments?: No Do you have trouble paying your heating and electricity bill?: No Do you have trouble taking care of your child, family member or friend?: No Do you have trouble with day-to-day activities such as bathing, preparing meals, shopping, managing finances, etc.?: No Are you currently unemployed and looking for a job?: No Are you interested in more education?: No Please select the resources that you would like help with: None Currently or been in a relationship where the following occur: no concerns reported AUDIT C Alcohol Use Questionnaire (AUDIT-C) 1. How often do you have a drink containing alcohol?: Never 3. How often do you have six or more drinks on one occasion?: Never Total Score: 0 Score Reviewed/Action Taken: Yes VALERY-7 AMB Questionnaire VALERY-7 Date VALERY - 7 assessed: 06/05/23 Feeling nervous, anxious, or on edge: 0 = Not at all Not being able to stop or control worryin = Not at all Worrying too much about different things: 0 = Not at all Trouble relaxin = Not at all Being so restless that it is hard to sit still: 0 = Not at all Becoming easily annoyed or irritable: 0 = Not at all Feeling afraid as if something awful might happen: 0 = Not at all Total VALERY-7 score (0-4 normal; 5-9 mild; 10-14 moderate; 15-21 severe): 0 Source: Developed by Thiago Macket B.W. Hilario, Gabe Domínguez and colleagues, with an educational vinita from [employer]. Review of Systems Const Denies chills, Denies fatigue, Denies fever(s), Denies headache(s), Denies malaise and Denies weakness Eyes Denies blurry vision, Denies change in vision, Denies irritation and Denies itchy eyes ENT Denies dysphagia, Denies dizziness, Denies otalgia, Denies headache(s), Denies nasal congestion, Denies neck pain, Denies odynophagia and Denies sore throat Card Denies chest pain, Denies rapid heart rate, Denies irregular heart rhythm, Reports palpitations (occasional palpitations) and Denies dyspnea Resp Denies chest congestion, Denies cough, Denies dyspnea and Denies wheezing GI Denies abdominal pain, Denies bloating, Denies constipation, Denies dysphagia, Denies heartburn, Denies diarrhea, Denies nausea, Denies odynophagia and Denies vomiting Denies hematuria, Denies difficulty urinating, Denies dysuria, Denies urinary frequency and Denies urinary urgency Musc Denies back pain, Denies arthralgias, Denies joint swelling, Denies muscle weakness and Denies neck pain Skin/Breast Details: (+) disfigured and thickened toenails on a few toes, especially on the right big toe Denies change in pigmentation, Denies lesions, Denies rash and Denies unusual bruising Neuro Denies dizziness, Denies headache(s), Denies paresthesias and Denies weakness Endo Denies fatigue and Reports palpitations (occasional palpitations) Aller/Immun Denies itchy eyes and Denies wheezing Physical exam (Primary Care) Vital Signs: Last Vital Signs Pulse 64 06/05/23 12:20 BP 110/76 06/05/23 12:20 Pulse Ox 93 06/05/23 12:20 Oxygen Delivery Method Room Air 06/05/23 12:20 BMI result Body Mass Index 31.6 Tobacco/Smoking Status: Tobacco use Status Tobacco use date assessed 06/05/23 06/05/23 12:26 Patient Tobacco Use Status Former Tobacco user 06/05/23 12:26 e-Cigarette/Vaping Use Never Used 06/05/23 12:26 PHQ-9: PHQ-9 Score PHQ-9: Total score 0 06/05/23 12:42 Depression Screening Interpretation: Negative Thrive Assessment: Date of Thrive Assessment Date Thrive assessed 06/05/23 06/05/23 12:26 Currently or been in a relationship where the following occur: no concerns reported Const General: no acute distress, alert and awake Orientation/consciousness: patient oriented x3 [facility] Head: Yes normocephalic and Yes atraumatic Ears: external ears normal, TM's normal bilaterally and EAC's normal General nose exam: No nasal discharge present Face and sinus: Yes normal facial exam and Yes sinuses nontender Teeth and gingiva: dentition normal Throat: Yes posterior oropharynx normal and Yes tonsils normal (no TP congestion) Eyes Eyelids: Yes eyelids normal Conjunctivae: conjunctivae normal Pupils: Equal, round and reactive pupils present EOM: EOMs intact bilaterally Neck Neck: Yes no lymphadenopathy and Yes supple Thyroid: Thyroid normal Resp Auscultation: clear to auscultation bilaterally, no rales and no wheezes Cardio Rate: regular rate Rhythm: regular rhythm Heart sounds: no murmurs GI Palpation (GI): Soft to palpation, nontender and No hepatosplenomegaly present Auscultation: normal bowel sounds General: Yes no CVA tenderness Back/Spine/Pelvis Back: no CVA tenderness Thoracic/Lumbar Spine: thoracic and lumbar spine normal to inspection Skin Lesions: no lesions Rashes: no rashes Neuro General: patient oriented x3, moves all extremities, no focal motor deficits and CN's II-XI intact bilaterally Cranial nerves: Yes Equal, round and reactive pupils present Cognition (Neuro): normal cognition Gait exam (Neuro): Normal gait present Extrem Other: (+) disfigured and thickened toenails on a few toes, especially on the right big toe General: Yes no clubbing, cyanosis or edema Results AMB Hemoglobin A1c AMB Hemoglobin A1c 7.3 % Last Edit by Paty Pruitt on 06/05/23 12:42 Results Reviewed Results Reviewed: Laboratory Last Values Hgb A1c (Clinic) 7.3 % (4.0-6.0) H 06/05/23 12:37 Assessment and Plan Assessment & Plan (1) Annual physical exam: Code(s): Z00.00 - Encounter for general adult medical examination without abnormal findings Plan: Patient is scheduled to get his follow up labs done next month prior to his originally scheduled follow up visit and will just have him get those done then to complete his physical exam today Will add PSA level to his labs He is overdue for a repeat colonoscopy - supposedly had one done in [place] about 10 or more years ago Will refer him to GI for repeat colonoscopy (2) Coronary artery disease: Comment: Status post posterolateral STEMI. He underwent bypass surgery with AYALA to LAD and left radial graft to OM in August 2020. Repeat cardiac catheterization on 01/17/2021 revealed patent grafts with diffuse coronary artery disease - recommend continuing aggressive medical management and risk factor modification Code(s): I25.10 - Atherosclerotic heart disease of [place] coronary artery without angina pectoris Qualifiers: Coronary Disease-Associated Artery/Lesion type: [place] artery [place] vs. transplanted heart: [place] heart Associated angina: with stable angina Qualified Code(s): I25.118 - Atherosclerotic heart disease of [place] coronary artery with other forms of angina pectoris Plan: S/P posterolateral STEMI - had bypass surgery with AYALA to LAD and left radial graft to OM in August 2020 Repeat stress testing was done followed by cardiac catheterization due to complaints of recurrent chest pain & discomfort following his CABG - repeat studies did not show any significant graft disease.? He has severe disease in the [place] coronary arteries and had spasm in the radial graft - symptoms have improved a lot with the addition of Amlodipine Continue Clopidogrel 75 mg QD, Aspirin 81 mg QD, Metoprolol 12.5 mg BID, Amlodipine 5 mg QD and Furosemide 40 mg QD Echocardiogram done on 03/28/23 revealed moderately decreased left ventricular systolic function with EF between 35 to 40%, with some evidence of wall motion abnormalities but no valvular pathology seen. He had repeat stress testing done last month (April 2023) - EKG stress test came out normal; nuclear imaging studies showed (+) transmural infarction involving the basal to mid inferolateral/adjacent lateral wall. Gated LVEF is 64% during stress and 48% during rest. Transient ischemic dilatation not present. 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 use Diabetes mellitus complication status: without complication Qualified Code(s): E11.9 - Type 2 diabetes mellitus without complications Plan: In-office HgbA1c done today is at 7.3%; cautioned that this has increased from his HgbA1c of 6.4% a couple of months ago - goal is < 7.0% Patient admits to poor compliance with his diet and states that he has been eating a lot of sweets and candies lately Reinforced diabetic diet Continue Metformin 1000 mg BID and Farxiga 5 mg QD (5) COPD (chronic obstructive pulmonary disease): Code(s): J44.9 - Chronic obstructive pulmonary disease, unspecified Qualifiers: COPD type: unspecified COPD Qualified Code(s): J44.9 - Chronic obstructive pulmonary disease, unspecified Plan: Continue Stiolto Respimat 2.5-2.5 mg 2 puffs QD and Albuterol HFA 2 puffs 4 times a day as needed Follow up with pulmonary as scheduled (6) Eczema of lower leg: Code(s): L30.9 - Dermatitis, unspecified Plan: Continue Triamcinolone 0.5% cream BID Has had no improvement with Mometasone 0.1% cream QD previously; Clobetasol 0.05% lotion BID was not approved by his insurance Was referred to dermatology previously for further evaluation and management (suspect lichen planus) - is still awaiting appointment (7) Vitamin D deficiency: Code(s): E55.9 - Vitamin D deficiency, unspecified Plan: Continue Vitamin D3 2000 units QD (8) Sickle cell trait: Code(s): D57.3 - Sickle-cell trait Plan: Patient tested POSITIVE for sickle cell trait when he was sent for sickle cell testing as he's had a few family members test positive recently Advised that with sickle cell trait, continuing observation and surveillance is the only thing needed with no other intervention required as there are really no medical conditions or problems associated with sickle cell trait (9) Onycholysis: Code(s): L60.1 - Onycholysis Plan: Will refer him to podiatry for further evaluation and management (10) Obesity (BMI 30-39.9): Code(s): E66.9 - Obesity, unspecified Plan: Reinforced diet/exercise as tolerated/lose weight (11) Colon cancer screening: Code(s): Z12.11 - Encounter for screening for malignant neoplasm of colon Plan: Will refer him to GI for repeat colonoscopy Plan Follow up as scheduled next month Orders: Orders Prostate Specific Antigen 3 Weeks N40.0 - Benign prostatic hyperplasia without lower urinary tract symptoms AMB Hemoglobin A1c Today E11.9 - Type 2 diabetes mellitus without complications Referrals Podiatry Referral E11.9 - Type 2 diabetes mellitus without complications, L60.1 - Onycholysis Gastroenterology Referral Z12.11 - Encounter for screening for malignant neoplasm of colon Coding Level of Care Code Est Pt Prev Care >65y(88521) Diagnoses Annual physical exam Z00.00 Coronary artery disease I25.118 Coronary Disease-Associated Artery/Lesion type: [place] artery [place] vs. 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
== END 2023-06-05 13:09 | disposition home or self-care (01) ==
PROVIDERS: PCP Internal Medicine; Visit Provider Internal Medicine
DX: Z00.00 Encounter for general adult medical examination without abnormal findings (principal); I25.118 Atherosclerotic heart disease of native coronary artery with other forms of angina pectoris; E11.620 Type 2 diabetes mellitus with diabetic dermatitis; E55.9 Vitamin D deficiency, unspecified; J44.9 Chronic obstructive pulmonary disease, unspecified; D57.3 Sickle-cell trait; E78.00 Pure hypercholesterolemia, unspecified; L30.9 Dermatitis, unspecified; L60.1 Onycholysis; E66.9 Obesity, unspecified
CPT/HCPCS: 83036; 99397

== ENCOUNTER 2023-06-24 10:57 | Outpatient (REF) | payer MEDICARE, SELFPAY ==
[2023-06-24 11:13] LABS: MANUAL DIFF FLAG NO
[2023-06-24 11:27] LABS: Basophils Absolute Auto 0.1 X10*3/uL (0.0-0.2); Basophils Percent Auto 0.9 % (0-2); Eosinophils Absolute Auto 0.1 X10*3/uL (0.0-0.4); Eosinophils Percent Auto 2.4 % (0-4); Hematocrit 42.6 % (42.0-52.0); Imm Gran Abs Auto 0.01 X10*3/uL (0.00-0.03); Imm Gran Pct Auto 0.2 % (0.0-0.4); Lymphocytes Absolute Auto 2.6 X10*3/uL (1.2-4.9); Lymphocytes Percent Auto 47.1 % (20-40); Mean Corpuscular HGB Conc 32.9 g/dl (31.0-36.0); Mean Corpuscular Hemoglobin 28.1 pg (27.0-33.0); Mean Corpuscular Volume 85.5 fL (80.0-98.0); Mean Platelet Volume 12.1 fL (9.4-12.4); Monocytes Absolute Auto 0.3 X10*3/uL (0.1-1.2); Monocytes Percent Auto 6.2 % (2-11); Neutrophils Absolute Auto 2.4 x10*3/uL (2.0-8.3); Neutrophils Percent Auto 43.2 % (45-73); Platelet Count 160 X10*3/uL (160-400); Red Blood Count 4.98 X10*6/uL (4.60-5.80); Red Cell Distribution Width 15.6 % (11.0-16.0); White Blood Count 5.5 X10*3/uL (4.8-10.8)
[2023-06-24 11:44] LABS: Estimated Average Glucose 148 mg/dL; Hemoglobin A1c % 6.8 % (<6.0)
[2023-06-24 12:17] LABS: Alanine Aminotransferase 11 U/L (0-40); Albumin Level 4.5 g/dL (3.5-5.0); Alkaline Phosphatase 68 U/L (39-117); Anion Gap 12 (12-20); Aspartate Amino Transferase 21 U/L (5-37); Bilirubin Total 0.5 mg/dL (0.0-1.0); Blood Urea Nitrogen 14 mg/dL (9-16); Calcium 10.3 mg/dL (8.4-10.2); Carbon Dioxide 23 mmol/L (22-29); Chloride 110 mmol/L (96-108); Cholesterol 111 mg/dL (<200); Estimated Glomerular Filt Rate > 60; Glucose Fasting 124 mg/dL (60-99); HDL Cholesterol 41 mg/dL (>40); LDL Cholesterol Calculated 58 mg/dL (<100); Potassium 4.1 mmol/L (3.3-5.1); Sodium 141 mmol/L (135-145); Total Protein 7.8 g/dL (6.5-8.0); Triglycerides 62 mg/dL (<150)
[2023-06-24 12:43] LABS: Vitamin D 25-OH Total 49.5 ng/mL (>30)
[2023-06-24 13:10] LABS: Prostate Specific Antigen 1.68 ng/mL (<0.05-4.0)
[2023-06-24 14:40] LABS: Appearance Urine Clear; Color Urine Yellow; Glucose Urine UA >=1000 mg/dL (Negative); Leukocyte Esterase Urine Negative (Negative); Nitrite Urine Negative (Negative); PH 5.5 (5.0-9.0); Specific Gravity - Urine 1.025 (1.005-1.025); UMIC TRIGGER UACC YES; Urine Blood Negative (Negative); Urine Ketones Negative (Negative); Urine Protein Negative (Neg-Trace)
[2023-06-24 14:51] LABS: Bacteria Urine None Seen (None Seen); Hyaline Casts Urine 0-2 /LPF (0-2); RBC Urine 0-2 /HPF (0-2); Squamous Epithelial Cell Urine 0-2 /HPF (0-2); WBC Urine 0-5 /HPF (0-5)
[2023-06-24 15:06] LABS: Creatinine Urine 84.19 mg/dL; Microalbum/Creatinine Ratio Ur 9.5 ug/mg cr (<30)
== END 2023-06-24 10:58 | disposition home or self-care (01) ==
LOC: HO.LAB 10:57
PROVIDERS: PCP Internal Medicine; Visit Provider Internal Medicine
DX: E78.00 Pure hypercholesterolemia, unspecified (principal); I10 Essential (primary) hypertension; E11.9 Type 2 diabetes mellitus without complications; E55.9 Vitamin D deficiency, unspecified; N40.0 Benign prostatic hyperplasia without lower urinary tract symptoms; R30.0 Dysuria; Z12.5 Encounter for screening for malignant neoplasm of prostate
CPT/HCPCS: 36415; 80053; 80061; 81001; 82043; 82306; 82570; 83036; 84153; 85025

== ENCOUNTER 2023-07-04 11:44 | Outpatient (AMB) | payer MEDICARE, SELFPAY ==
[2023-07-04 11:46] VITALS: BP 110/76; PULSE 75; O2SAT 96; BMI 31.5
--- NOTE | 2023-07-04 11:46 | A.OFFPC_ITS ---
Vital Signs 07/04/23 11:46 Height 5 ft 6 in Weight 195 lb 4 oz BMI 31.5 BP 110/76 Blood Pressure Location Lt brachial Position Sitting Pulse 75 Pulse Source Pulse Oximeter Pulse Oximetry (%) 96 Oxygen Delivery Method Room Air Intake Visit Reasons: HTN, hyperlipidemia, JORI, heart fluttering Tree Trimmer Required: No Accompanied by: Self / Same As Patient Allergies No Known Allergies Allergy (Verified 07/04/23 12:06) Medication List - Last Reconciled 07/04/23 by Mike Myers MD albuterol sulfate 90 mcg/actuation 1 inh inhalation QID PRN albuterol sulfate 90 mcg/actuation 2 puffs inhalation Q4-6H PRN 30 days aspirin 81 mg PO DAILY 90 days atorvastatin 80 mg PO BEDTIME 90 days benzonatate 100 mg PO TID PRN cholecalciferol (vitamin D3) 50 mcg PO DAILY 90 days clopidogrel 75 mg PO DAILY 90 days Farxiga (dapagliflozin propanediol) 5 mg PO QAM 30 days NS metformin 1,000 mg PO BID 90 days metoprolol succinate ER 25 mg PO DAILY mometasone 0.1% 1 appl topical DAILY 10 days sacubitril-valsartan 24-26 mg (Entresto) 1 tab PO BID tiotropium-olodaterol 2.5-2.5 mcg/actuation (Stiolto Respimat) 2 puffs inhalation DAILY 30 days triamcinolone acetonide 0.5% 1 appl topical BID Tobacco use date assessed: 07/04/23 Fall risk assessment: No Falls in past year Last assessed Fall Risk: 07/04/23 Dental Screening Dental Screen Date: 07/04/23 Did you have a dental visit in the last 12 months?: No Did you have a dental problem in the last 6 months where you did not have access to dental care?: No Was dental information given to patient?: No HPI HTN, hyperlipidemia, JORI, heart fluttering HPI Details Patient comes in today for his follow up visit States that he feels okay He denies any headaches or dizziness Denies any chest pains, no SOB No nausea/vomiting, no abdominal pain No change in bowel habits noted Needs his Metformin Rx refilled Patient also brought in his medicine bottles for BOTH Metoprolol ER and Metoprolol tartrate - states that he is not sure which one he should be taking and his daughter states that he has been taking both for the past few days Had his follow up labs done a couple of weeks ago - to discuss his results [facility] Medical History Vitamin D deficiency Sickle cell trait Obesity (BMI 30-39.9) Eczema of lower leg Overweight (BMI 25.0-29.9) Ex-smoker Pure hypercholesterolemia Diabetes mellitus Coronary artery disease Surgical History History of cardiac cath S/P CABG (coronary artery bypass graft) (~08/2020) Family History Mother Heart problem Diabetes Father Heart problem Diabetes Other Family history non-contributory Social History Housing: House Alcohol intake: former Patient Tobacco Use Status: Former Tobacco user e-Cigarette/Vaping Use: Never Used Second Hand Smoke Exposure: Yes service: No Current occupational status: retired Cognitive needs: No Hearing needs: No Vision needs: Yes Questionnaire PHQ-9 Over the last 2 weeks, how often have you been bothered by any of the following problems? 1. Little interest or pleasure in doing things: not at all 2. Feeling down, depressed, or hopeless: not at all 3. Trouble falling or staying asleep, or sleeping too much: not at all 4. Feeling tired or having little energy: not at all 5. Poor appetite or overeating: not at all 6. Feeling bad about yourself - or that you are a failure or have let yourself or your family down: not at all 7. Trouble concentrating on things, such as reading the newspaper or watching television: not at all 8. Moving or speaking so slowly that other people could have noticed. Or the opposite - being so fidgety or restless that you have been moving around a lot more than usual: not at all 9. Thoughts that you would be better off or of hurting yourself in some way: not at all Total score: 0 Depression Screening Interpretation: Negative 20003 - PHQ-9 Billing: Yes Source: Developed by Drs. Zachary Winston, Kaylene Rich, Gabe Domínguez and colleagues, with an educational vinita from [employer]. Thrive Questionnaire Date Thrive assessed: 07/04/23 I am a: Patient What is your living situation today?: I have a steady place to live Within the past 12 months, did the food you bought not last and you didn't have the money to get more?: Never true Within the past 12 months, did you worry whether your food would run out before you got money to buy more?: Never true Do you have trouble paying for medicines?: No Do you have trouble getting transportation to medical appointments?: No Do you have trouble paying your heating and electricity bill?: No Do you have trouble taking care of your child, family member or friend?: No Do you have trouble with day-to-day activities such as bathing, preparing meals, shopping, managing finances, etc.?: No Are you currently unemployed and looking for a job?: No Are you interested in more education?: No Please select the resources that you would like help with: None Currently or been in a relationship where the following occur: no concerns reported AUDIT C Alcohol Use Questionnaire (AUDIT-C) 1. How often do you have a drink containing alcohol?: Never 3. How often do you have six or more drinks on one occasion?: Never Total Score: 0 Score Reviewed/Action Taken: Yes VALERY-7 AMB Questionnaire VALERY-7 Date VALERY - 7 assessed: 07/04/23 Feeling nervous, anxious, or on edge: 0 = Not at all Not being able to stop or control worryin = Not at all Worrying too much about different things: 0 = Not at all Trouble relaxin = Not at all Being so restless that it is hard to sit still: 0 = Not at all Becoming easily annoyed or irritable: 0 = Not at all Feeling afraid as if something awful might happen: 0 = Not at all Total VALERY-7 score (0-4 normal; 5-9 mild; 10-14 moderate; 15-21 severe): 0 Source: Developed by Drs. Zachary Winston, Kaylene Rich, Gabe Domínguez and colleagues, with an educational vinita from [employer]. Review of Systems Const Denies fatigue, Denies fever(s) and Denies headache(s) ENT Denies dysphagia, Denies dizziness, Denies otalgia, Denies headache(s), Denies neck pain, Denies odynophagia and Denies sore throat Card Denies chest pain, Denies rapid heart rate, Denies irregular heart rhythm, Denies palpitations and Denies dyspnea Resp Denies chest congestion, Denies cough, Denies dyspnea and Denies wheezing GI Denies abdominal pain, Denies bloating, Denies constipation, Denies dysphagia, Denies heartburn, Denies diarrhea, Denies nausea, Denies odynophagia and Denies vomiting Denies hematuria, Denies difficulty urinating, Denies dysuria, Denies urinary frequency and Denies urinary urgency Musc Denies back pain, Denies arthralgias and Denies neck pain Skin/Breast Denies change in pigmentation, Denies lesions, Denies rash and Denies unusual bruising Neuro Denies dizziness, Denies headache(s) and Denies paresthesias Endo Denies fatigue and Denies palpitations Aller/Immun Denies wheezing Physical exam (Primary Care) Vital Signs: Last Vital Signs Pulse 75 07/04/23 11:46 BP 110/76 07/04/23 11:46 Pulse Ox 96 07/04/23 11:46 Oxygen Delivery Method Room Air 07/04/23 11:46 BMI result Body Mass Index 31.5 Tobacco/Smoking Status: Tobacco use Status Tobacco use date assessed 07/04/23 07/04/23 11:52 Patient Tobacco Use Status Former Tobacco user 07/04/23 11:52 e-Cigarette/Vaping Use Never Used 07/04/23 11:52 PHQ-9: PHQ-9 Score PHQ-9: Total score 0 07/04/23 12:19 Depression Screening Interpretation: Negative Thrive Assessment: Date of Thrive Assessment Date Thrive assessed 07/04/23 07/04/23 11:52 Currently or been in a relationship where the following occur: no concerns reported Const General: no acute distress and alert HENMT Ears: TM's normal bilaterally and EAC's normal Throat: Yes posterior oropharynx normal and Yes tonsils normal (no TP congestion) Neck Neck: Yes no lymphadenopathy and Yes supple Thyroid: Thyroid normal Resp Auscultation: clear to auscultation bilaterally, no rales and no wheezes Cardio Rate: regular rate Rhythm: regular rhythm Heart sounds: no murmurs GI Palpation (GI): Soft to palpation and nontender Auscultation: normal bowel sounds General: Yes no CVA tenderness Back/Spine/Pelvis Back: no CVA tenderness Skin Rashes: no rashes Extrem General: Yes no clubbing, cyanosis or edema Results Reviewed Results Reviewed: Laboratory Tests 01/01/23 03/25/23 06/24/23 Unknown 10:16 11:12 WBC 5.5 Hgb 14.0 Hgb (Send Out) 13.3 Plt Count 160 Sodium Potassium Creatinine Estimated GFR Fasting Glucose Hemoglobin A1c % Calcium AST ALT Triglycerides Cholesterol LDL Cholesterol, Calc HDL Cholesterol Prostate Specific Ag 25-OH Vitamin D Total TSH 0.98 Ur Specific [place] Urine Protein Urine Glucose (UA) Urine Blood Microalb/Creat Ratio 06/24/23 06/24/23 06/24/23 11:12 11:12 13:28 WBC Hgb Hgb (Send Out) Plt Count Sodium 141 Potassium 4.1 Creatinine 1.08 Estimated GFR > 60 Fasting Glucose 124 H Hemoglobin A1c % 6.8 H Calcium 10.3 H AST 21 ALT 11 Triglycerides 62 Cholesterol 111 LDL Cholesterol, Calc 58 HDL Cholesterol 41 Prostate Specific Ag 1.68 25-OH Vitamin D Total 49.5 TSH Ur Specific [place] 1.025 Urine Protein Negative Urine Glucose (UA) >=1000 H Urine Blood Negative Microalb/Creat Ratio 06/24/23 13:28 WBC Hgb Hgb (Send Out) Plt Count Sodium Potassium Creatinine Estimated GFR Fasting Glucose Hemoglobin A1c % Calcium AST ALT Triglycerides Cholesterol LDL Cholesterol, Calc HDL Cholesterol Prostate Specific Ag 25-OH Vitamin D Total TSH Ur Specific [place] Urine Protein Urine Glucose (UA) Urine Blood Microalb/Creat Ratio 9.5 Assessment and Plan Assessment & Plan (1) Coronary artery disease: Comment: Status post posterolateral STEMI. He underwent bypass surgery with AYALA to LAD and left radial graft to OM in August 2020. Repeat cardiac catheterization on 01/17/2021 revealed patent grafts with diffuse coronary artery disease - recommend continuing aggressive medical management and risk factor modification Code(s): I25.10 - Atherosclerotic heart disease of [place] coronary artery without angina pectoris Qualifiers: Coronary Disease-Associated Artery/Lesion type: [place] artery [place] vs. transplanted heart: [place] heart Associated angina: with stable angina Qualified Code(s): I25.118 - Atherosclerotic heart disease of [place] coronary artery with other forms of angina pectoris Plan: S/P posterolateral STEMI - had bypass surgery with AYALA to LAD and left radial graft to OM in August 2020 Repeat stress testing was done followed by cardiac catheterization due to compla ints of recurrent chest pain & discomfort following his CABG - repeat studies did not show any significant graft disease.? He has severe disease in the [place] coronary arteries and had spasm in the radial graft - symptoms have improved a lot with the addition of Amlodipine Echocardiogram done on 03/28/23 revealed moderately decreased left ventricular systolic function with EF between 35 to 40%, with some evidence of wall motion abnormalities but no valvular pathology seen. He had repeat stress testing done in April 2023 - EKG stress test came out normal; nuclear imaging studies showed (+) transmural infarction involving the basal to mid inferolateral/adjacent lateral wall. Gated LVEF is 64% during stress and 48% during rest. Transient ischemic dilatation not present Continue Clopidogrel 75 mg QD, Aspirin 81 mg QD, Metoprolol ER 25 mg QD and Entresto 24-26 mg BID - Amlodipine was discontinued when patient was started on Entresto Patient is advised that he should be taking only either Metoprolol ER or Metoprolol tartrate but NOT BOTH - will go ahead and D/C Metoprolol tartrate so as to eliminate any future confusion about his medications Follow up with cardiology as scheduled (2) Pure hypercholesterolemia: Code(s): E78.00 - Pure hypercholesterolemia, unspecified Plan: Results of his labs done last week reviewed and discussed with patient Reinforced low cholesterol diet Continue Atorvastatin 80 mg QD Will recheck his labs and fasting lipids in 4 months for follow-up (3) Diabetes mellitus: Code(s): E11.9 - Type 2 diabetes mellitus without complications Qualifiers: Diabetes mellitus type: type 2 Diabetes mellitus penitentiary insulin use: without penitentiary use Diabetes mellitus complication status: without complication Qualified Code(s): E11.9 - Type 2 diabetes mellitus without complications Plan: HgbA1c was at 6.8% on his labs done last week (in-office HgbA1c was at 7.3% a few weeks ago) - goal is < 7.0% Reinforced diabetic diet Continue Metformin 1000 mg BID and Farxiga 5 mg QD (4) COPD (chronic obstructive pulmonary disease): Code(s): J44.9 - Chronic obstructive pulmonary disease, unspecified Qualifiers: COPD type: unspecified COPD Qualified Code(s): J44.9 - Chronic obstructive pulmonary disease, unspecified Plan: Continue Stiolto Respimat 2.5-2.5 mg 2 puffs QD and Albuterol HFA 2 puffs 4 times a day as needed Follow up with pulmonary as scheduled (5) Eczema of lower leg: Code(s): L30.9 - Dermatitis, unspecified Plan: Continue Triamcinolone 0.5% cream BID Has had no improvement with Mometasone 0.1% cream QD previously; Clobetasol 0.05% lotion BID was not approved by his insurance He was referred to dermatology for this previously for further evaluation and management (suspect lichen planus) - is still awaiting appointment (6) Vitamin D deficiency: Code(s): E55.9 - Vitamin D deficiency, unspecified Plan: Continue Vitamin D3 2000 units QD (7) Sickle cell trait: Code(s): D57.3 - Sickle-cell trait Plan: Patient tested POSITIVE for sickle cell trait when he was sent for sickle cell testing as he's had a few family members test positive recently Advised that with sickle cell trait, continuing observation and surveillance is the only thing needed with no other intervention required as there are really no medical conditions or problems associated with sickle cell trait (8) Obesity (BMI 30-39.9): Code(s): E66.9 - Obesity, unspecified Plan: Reinforced diet/exercise as tolerated/lose weight Plan Follow up in 4 months Orders: Orders Lipid Panel 4 Months E78.00 - Pure hypercholesterolemia, unspecified Comprehensive [place]. Panel Fast 4 Months E78.00 - Pure hypercholesterolemia, unspecified Microalbumin, Random (w Creat) 4 Months E11.9 - Type 2 diabetes mellitus without complications TSH reflex Free T4 4 Months E78.00 - Pure hypercholesterolemia, unspecified B Type Natriuretic Peptide 4 Months I50.9 - Heart failure, unspecified Hemoglobin A1c 4 Months E11.9 - Type 2 diabetes mellitus without complications Complete Blood Count Auto Diff 4 Months I10 - Essential (primary) hypertension UA CC w/rflx Micro + Cult 4 Months R30.0 - Dysuria Vitamin D 25-OH Total 4 Months E55.9 - Vitamin D deficiency, unspecified Medications: Refilled metoprolol succinate ER 25 mg PO DAILY 90 tabs 1RF metformin 1,000 mg PO BID 180 tabs 1RF 90 days E11.9 - Type 2 diabetes mellitus without complications Coding Level of Care Code Est Pt Level 4 (67660) Diagnoses Coronary artery disease of [place] artery of [place] heart with stable angina pectoris I25.118 Coronary Disease-Associated Artery/Lesion type: [place] artery [place] vs. transplanted heart: [place] heart Associated angina: with stable angina Pure hypercholesterolemia E78.00 Type 2 diabetes mellitus without complication, without long-term current use of insulin E11.9 Diabetes mellitus type: type 2 Diabetes mellitus terminal clerk insulin use: without terminal clerk use Diabetes mellitus complication status: without complication Chronic obstructive pulmonary disease, unspecified COPD type J44.9 COPD type: unspecified COPD Eczema of lower leg L30.9 Vitamin D deficiency E55.9 Sickle cell trait D57.3 Obesity (BMI 30-39.9) E66.9
== END 2023-07-04 12:22 | disposition home or self-care (01) ==
PROVIDERS: PCP Internal Medicine; Visit Provider Internal Medicine
DX: I25.118 Atherosclerotic heart disease of native coronary artery with other forms of angina pectoris (principal); E11.620 Type 2 diabetes mellitus with diabetic dermatitis; J44.9 Chronic obstructive pulmonary disease, unspecified; D57.3 Sickle-cell trait; E78.00 Pure hypercholesterolemia, unspecified; L30.9 Dermatitis, unspecified; E55.9 Vitamin D deficiency, unspecified; E66.9 Obesity, unspecified
CPT/HCPCS: 99214

== ENCOUNTER → 2023-08-14 10:46 | Outpatient (BNVA) | payer MEDICARE, SELFPAY | PROVIDERS: PCP Internal Medicine; Visit Provider Nurse Practitioner ==

== ENCOUNTER 2023-09-23 11:17 | Outpatient (REF) | payer MEDICARE, SELFPAY ==
[2023-09-23 13:36] LABS: Prothrombin Time 11.9 SEC (11.1-13.3)
[2023-09-23 14:01] LABS: Anion Gap 14 (12-20); Blood Urea Nitrogen 14 mg/dL (9-16); Calcium 10.2 mg/dL (8.4-10.2); Carbon Dioxide 24 mmol/L (22-29); Chloride 111 mmol/L (96-108); Estimated Glomerular Filt Rate > 60; Glucose Random 127 mg/dL (60-115); Potassium 3.9 mmol/L (3.3-5.1); Sodium 145 mmol/L (135-145)
[2023-09-23 14:25] LABS: Hematocrit 39.2 % (42.0-52.0); Mean Corpuscular HGB Conc 33.2 g/dl (31.0-36.0); Mean Corpuscular Hemoglobin 28.1 pg (27.0-33.0); Mean Corpuscular Volume 84.7 fL (80.0-98.0); Mean Platelet Volume 12.4 fL (9.4-12.4); Platelet Count 192 X10*3/uL (160-400); Red Blood Count 4.63 X10*6/uL (4.60-5.80); Red Cell Distribution Width 14.7 % (11.0-16.0); White Blood Count 5.7 X10*3/uL (4.8-10.8)
== END 2023-09-23 11:18 | disposition home or self-care (01) ==
LOC: HO.LAB 11:17
PROVIDERS: PCP Internal Medicine; Visit Provider Internal Medicine Cardiovascular Disease
DX: I25.5 Ischemic cardiomyopathy (principal); I25.2 Old myocardial infarction; I20.89 Other forms of angina pectoris; Z95.1 Presence of aortocoronary bypass graft; Z79.899 Other long term (current) drug therapy
CPT/HCPCS: 36415; 80048; 85027; 85610; 99212

== ENCOUNTER 2023-09-23 11:17 | Outpatient (AMB) | payer MEDICARE, SELFPAY ==
--- NOTE | 2023-09-23 11:19 | A.OFFVIS_ITS ---
Intake Vital Signs 09/23/23 11:20 Height 5 ft 6 in Weight 195 lb 5.273 oz BMI 31.5 BP 120/58 L Blood Pressure Location Lt brachial Position Sitting Pulse 58 Pulse Source Pulse Oximeter Intake Visit Reasons: 6 month follow up Intake Note: 6 mnth f/up pt its feeling good Enterprise Resource Planning Consultant Required: No Accompanied by: Daughter Allergies No Known Allergies Allergy (Verified 07/04/23 12:06) Medication List - Last Reconciled 09/23/23 by Reji Harry MD aspirin 81 mg PO DAILY 90 days atorvastatin 80 mg PO BEDTIME 90 days benzonatate 100 mg PO TID PRN cholecalciferol (vitamin D3) 50 mcg PO DAILY 90 days clopidogrel 75 mg PO DAILY 90 days Farxiga (dapagliflozin propanediol) 5 mg PO QAM 30 days NS metformin 1,000 mg PO BID 90 days metoprolol succinate ER 25 mg PO DAILY peg 3350-electrolytes 236-22.74-6.74 -5.86 gram (Golytely) 240 mL PO Q10M 1 day sacubitril-valsartan 24-26 mg (Entresto) 1 tab PO BID HPI HPI Comments History of Present Illness Details Pleasant 68-year-old gentleman here for follow-up. He was seen at [facility] in the setting on for posterior STEMI. He was taken emergently for cardiac catheterization which revealed severe distal left main stenosis along with ostial left circumflex disease. Replacing her aortic balloon pump which improved his symptoms and ECG changes. He was subsequently sent for urgent bypass surgery and underwent AYALA to LAD and left radial graft to his OM. He had respiratory failure and prolonged hospitalization. He did well afterwards. On last visit he complained of chest tightness similar to be bypassed. He was sent for stress testing which was normal. After due for diagnostic angiogram. This showed patent grafts with [place] coronary disease. Right coronary artery was diffusely disease and was not grafted. We encountered spasm in the radial graft to the OM after engagement. Patient was started on amlodipine after the cath. He returns for f/u today. He is doing well since addition of amlodipine. No side effects. Catheterization report had explained to the patient and . Emanating 2022: He returns for follow-up. It appears he saw us in 2020 and did not sure he was for 2 years. He subsequently came back and was seen by Jessica in our office. He had an echocardiogram which showed EF of 35-40%. He had stress test performed where lateral infarct was noticed. He previously had bypass surgery for left main stenosis with AYALA to LAD and a radial graft to OM. Radial graft was noted to have spasm and he was started on amlodipine previously with good improvement in symptoms. Given cardiomyopathy has been started on medications including metoprolol succinate, Entresto and Farxiga. He is saying that Farxiga and Entresto were very spends a for him and cannot afford them. He also added that he has missed his medications for few days and was getting left-sided pressure-like feeling. This is similar to his anginal pain. PFSH Medical History Vitamin D deficiency Sickle cell trait Obesity (BMI 30-39.9) Eczema of lower leg Overweight (BMI 25.0-29.9) Ex-smoker Pure hypercholesterolemia Diabetes mellitus Coronary artery disease Surgical History H/O colonoscopy History of cardiac cath S/P CABG (coronary artery bypass graft) (~08/2020) Family History Mother Heart problem Diabetes Father Heart problem Diabetes Sister Ovary cancer Other Family history non-contributory Social History Housing: House Alcohol intake: former Patient Tobacco Use Status: Former Tobacco user e-Cigarette/Vaping Use: Never Used Second Hand Smoke Exposure: Yes service: No Current occupational status: retired Cognitive needs: No Hearing needs: No Vision needs: Yes Review of Systems Const Reports chills, Reports fatigue, Reports fever(s), Reports frequent falls, Reports weakness, Reports weight gain and Reports weight loss ENT Reports dizziness Card Reports chest pain, Reports leg edema, Reports lightheadedness, Reports palpitations, Reports dyspnea and Reports dyspnea on exertion Resp Reports cough, Reports dyspnea and Reports dyspnea on exertion GI Reports hematochezia Musc Reports abnormal gait, Reports muscle weakness, Reports numbness, Reports radiating pain into limb and Reports tingling Neuro Reports abnormal gait, Reports dizziness, Reports frequent falls, Reports numbness, Reports tingling and Reports weakness Endo Reports fatigue and Reports palpitations Physical Exam Vital Signs: Last Vital Signs Pulse 58 12/18/23 11:20 BP 120/58 L 09/23/23 11:20 BMI result Body Mass Index 31.5 GENERAL APPEARANCE: in no acute distress, pleasant. NECK: no carotid bruit, no jugular venous distention. SKIN: no suspicious lesions, warm and dry. HEART: no murmurs, regular rate and rhythm. LUNGS: clear to auscultation bilaterally. ABDOMEN: soft, nontender. EXTREMITIES: no edema. PERIPHERAL PULSES: equal. NEUROLOGIC: No gross deficits, AAO X 3 Assessment & Plan Assessment & Plan (1) Ischemic cardiomyopathy: Code(s): I25.5 - Ischemic cardiomyopathy (2) S/P CABG (coronary artery bypass graft): Onset Date: ~08/2020 Code(s): Z95.1 - Presence of aortocoronary bypass graft (3) Stable angina: Code(s): I20.8 - Other forms of angina pectoris Plan 68-year-old gentleman with known coronary artery disease with previous bypass surgery with AYALA to LAD and left radial graft to OM. He had spasm in the radial graft on angiogram performed in 2020. He is back after 2 years and his ejection fraction has dropped and he has clear wall motion echocardiography as well as nuclear stress test showing lateral infarct with fixed defect. He is complaining of anginal symptoms. I suspect that his graft to circumflex is occluded and potentially is the reason for his angina as well as drop in ejection fraction. We will check with insurance whether Farxiga and Entresto can have better coverage. If not then I will stop the Farxiga and changed Entresto to losartan 25 mg once a day. We will arrange a diagnostic angiogram with grafts to assess his anatomy and potentially treat left main to circumflex in cases the radial graft to OM is occluded. Thank you for allowing me to participate in the care of your patient. Please feel free to contact me if you have any questions. Orders: Orders Cardiac Cath w Graft Today I25.5 - Ischemic cardiomyopathy Prothrombin Time INR Today I25.5 - Ischemic cardiomyopathy Complete Blood Count no Diff Today I25.5 - Ischemic cardiomyopathy Basic Metabolic Panel Today I25.5 - Ischemic cardiomyopathy Coding Level of Care Code Est Pt Level 4 (86546) Diagnoses Ischemic cardiomyopathy I25.5 S/P CABG (coronary artery bypass graft) Z95.1 Stable angina I20.8
[2023-09-23 11:20] VITALS: BP 120/58; PULSE 58; BMI 31.5
== END 2023-09-23 11:58 | disposition home or self-care (01) ==
PROVIDERS: PCP Internal Medicine; Visit Provider Internal Medicine Cardiovascular Disease
DX: I25.5 Ischemic cardiomyopathy (principal); Z95.1 Presence of aortocoronary bypass graft; I20.8 Other forms of angina pectoris
CPT/HCPCS: 99214

== ENCOUNTER → 2023-10-15 23:59 | Outpatient (BNV) | payer MEDICARE, SELFPAY | PROVIDERS: PCP Internal Medicine; Visit Provider Internal Medicine Cardiovascular Disease | DX: I20.89 Other forms of angina pectoris (principal); R93.1 Abnormal findings on diagnostic imaging of heart and coronary circulation | CPT/HCPCS: 93459; 99152 ==

== ENCOUNTER 2023-10-29 11:34 | Outpatient (REF) | payer MEDICARE, SELFPAY ==
[2023-10-29 11:56] LABS: MANUAL DIFF FLAG NO
[2023-10-29 12:31] LABS: Basophils Percent Auto 0.7 % (0-2); Eosinophils Absolute Auto 0.2 X10*3/uL (0.0-0.4); Eosinophils Percent Auto 3.8 % (0-4); Hematocrit 38.5 % (42.0-52.0); Hemoglobin 12.6 g/dl (14.0-18.0); Imm Gran Abs Auto 0.01 X10*3/uL (0.00-0.03); Imm Gran Pct Auto 0.2 % (0.0-0.4); Lymphocytes Absolute Auto 2.4 X10*3/uL (1.2-4.9); Lymphocytes Percent Auto 43.5 % (20-40); Mean Corpuscular HGB Conc 32.7 g/dl (31.0-36.0); Mean Corpuscular Hemoglobin 28.5 pg (27.0-33.0); Mean Corpuscular Volume 87.1 fL (80.0-98.0); Mean Platelet Volume 11.6 fL (9.4-12.4); Monocytes Absolute Auto 0.4 X10*3/uL (0.1-1.2); Monocytes Percent Auto 7.1 % (2-11); Neutrophils Absolute Auto 2.5 x10*3/uL (2.0-8.3); Neutrophils Percent Auto 44.7 % (45-73); Platelet Count 179 X10*3/uL (160-400); Red Blood Count 4.42 X10*6/uL (4.60-5.80); Red Cell Distribution Width 15.2 % (11.0-16.0); White Blood Count 5.5 X10*3/uL (4.8-10.8)
[2023-10-29 12:41] LABS: Estimated Average Glucose 143 mg/dL; Hemoglobin A1c % 6.6 % (<6.0)
[2023-10-29 13:21] LABS: B Type Natriuretic Peptide 236 pg/mL (<100)
[2023-10-29 13:35] LABS: Alanine Aminotransferase 14 U/L (0-40); Albumin Level 4.3 g/dL (3.5-5.0); Alkaline Phosphatase 57 U/L (39-117); Anion Gap 10 (12-20); Aspartate Amino Transferase 19 U/L (5-37); Bilirubin Total 0.5 mg/dL (0.0-1.0); Blood Urea Nitrogen 13 mg/dL (9-16); Calcium 9.9 mg/dL (8.4-10.2); Carbon Dioxide 28 mmol/L (22-29); Chloride 108 mmol/L (96-108); Cholesterol 103 mg/dL (<200); Estimated Glomerular Filt Rate > 60; Glucose Fasting 124 mg/dL (60-99); HDL Cholesterol 38 mg/dL (>40); LDL Cholesterol Calculated 55 mg/dL (<100); Potassium 4.1 mmol/L (3.3-5.1); Sodium 142 mmol/L (135-145); Total Protein 7.4 g/dL (6.5-8.0); Triglycerides 53 mg/dL (<150)
[2023-10-29 13:51] LABS: TSH reflex Free T4 0.84 uIU/mL (0.32-4.0)
== END 2023-10-29 11:35 | disposition home or self-care (01) ==
LOC: HO.LAB 11:34
PROVIDERS: PCP Internal Medicine; Visit Provider Internal Medicine
DX: R30.0 Dysuria (principal)
CPT/HCPCS: 36415; 80053; 80061; 82306; 83036; 83880; 84443; 85025

== ENCOUNTER 2023-10-31 10:09 | Outpatient (AMB) | payer MEDICARE, SELFPAY ==
[2023-10-31 10:24] VITALS: BP 120/72; PULSE 72; BMI 31.8
--- NOTE | 2023-10-31 10:24 | MHC.OFFVIS ---
Intake Vital Signs 10/31/23 10:24 Height 5 ft 6 in Weight 197 lb 1.492 oz BMI 31.8 BP 120/72 Blood Pressure Location Rt brachial Position Sitting Pulse 72 Pulse Source Monitor Intake Visit Reasons: Follow up post cardiac cath Data Processing Clerk Required: No Applications Manager: Applications Manager Present Allergies No Known Allergies Allergy (Verified 10/31/23 10:27) Medication List - Last Reconciled 10/31/23 by BLAS CaceresC aspirin 81 mg PO DAILY 90 days atorvastatin 80 mg PO BEDTIME 90 days cholecalciferol (vitamin D3) 50 mcg PO DAILY 90 days clopidogrel 75 mg PO DAILY 90 days isosorbide mononitrate ER 30 mg PO DAILY losartan 50 mg PO DAILY metformin 1,000 mg PO BID 90 days metoprolol succinate ER 25 mg PO DAILY peg 3350-electrolytes 236-22.74-6.74 -5.86 gram (Golytely) 240 mL PO Q10M 1 day HPI Follow up post cardiac cath HPI Details Aram is a 68-year-old male with past medical history of hyperlipidemia, diabetes, CAD who had STEMI 08/2020 resulting in urgent coronary bypass with AYALA to LAD and left radial graft to OM, he did have cardiac catheterization 01/17/2021 showing patent grafts, radial graft spasm. He was put on Amlodipine. He did not follow up in the office between 01/26/21 and 03/21/23. An Echo was then done showing EF 35-40%, inferior wall motion abnormality. He then had nuclear stress test which was abnormal showing inferior/lateral infarct. He underwent cardiac catheterization and now presents for follow-up. Today he reports that he has been feeling well since his cardiac catheterization procedure. His right groin site is healing without issues. He denies having any chest discomfort at rest or with activity. No shortness of breath, palpitations, presyncope, syncope, PND, orthopnea or edema. He is mostly sedentary but will walk when the weather allows. He is taking all his medications as directed. His daughter is present and assisting with Hebrew translation. Permit signed. [facility] Medical History Vitamin D deficiency Sickle cell trait Obesity (BMI 30-39.9) Eczema of lower leg Overweight (BMI 25.0-29.9) Ex-smoker Pure hypercholesterolemia Diabetes mellitus Coronary artery disease Surgical History H/O colonoscopy History of cardiac cath S/P CABG (coronary artery bypass graft) (~08/2020) Family History Mother Heart problem Diabetes Father Heart problem Diabetes Sister Ovary cancer Other Family history non-contributory Social History Housing: House Alcohol intake: former Patient Tobacco Use Status: Former Tobacco user e-Cigarette/Vaping Use: Never Used Second Hand Smoke Exposure: Yes service: No Current occupational status: retired Cognitive needs: No Hearing needs: No Vision needs: Yes Review of Systems Const All systems reviewed & are unremarkable except as noted in HPI and below ENT Denies dizziness Card Denies chest pain, Denies chest pain at rest, Denies chest pain with activity, Denies rapid heart rate, Denies pedal edema, Denies edema, Denies leg edema, Denies lightheadedness, Denies palpitations, Denies dyspnea, Denies dyspnea on exertion and Denies orthopnea Resp Denies cough, Denies dyspnea and Denies dyspnea on exertion GI Denies hematochezia and Denies change in stool character Musc Denies abnormal gait, Denies limited range of motion, Denies muscle cramps, Denies muscle weakness, Denies numbness, Denies radiating pain into limb, Denies stiffness and Denies tingling Neuro Denies abnormal gait, Denies dizziness, Denies numbness and Denies tingling Endo Denies palpitations Physical Exam Vital Signs: Last Vital Signs Pulse 72 10/31/23 10:24 BP 120/72 10/31/23 10:24 BMI result Body Mass Index 31.8 Const General: cooperative, healthy appearing, comfortable and no acute distress Orientation/consciousness: patient oriented x3 Neck Neck: Yes normal visual inspection and Yes no JVD Chest Chest palpation & inspection: normal inspection of the chest Resp Effort & Inspection: normal respiratory effort Auscultation: clear to auscultation bilaterally, no crackles, no rales, no rhonchi and no wheezes Cardio Jugular venous distension: no JVD Rate: regular rate Rhythm: regular rhythm Heart sounds: S1 normal heart sound present, S2 normal heart sound present, no murmurs and no rubs Neuro General: patient oriented x3 Extrem Other: Right groin site well healed, easily palpable femoral pulse, no bruit noted General: Yes normal to inspection and No no pedal edema Psych Appearance: grossly normal Mental Status: mental status grossly normal Speech and movement: Normal speech and movement present Office Procedures EKG Details: Today, read by me, normal sinus rhythm, no acute ST or T-wave abnormalities, rate 72, QTC 433 millisecond [id number], Complete Assessment & Plan Assessment & Plan (1) Coronary artery disease: Comment: Status post posterolateral STEMI. He underwent bypass surgery with AYALA to LAD and left radial graft to OM in August 2020. Repeat cardiac catheterization on 01/17/2021 revealed patent grafts with diffuse coronary artery disease - recommend continuing aggressive medical management and risk factor modification Code(s): I25.10 - Atherosclerotic heart disease of [place] coronary artery without angina pectoris Qualifiers: Associated angina: with stable angina Coronary Disease-Associated Artery/Lesion type: [place] artery [place] vs. transplanted heart: [place] heart Qualified Code(s): I25.118 - Atherosclerotic heart disease of [place] coronary artery with other forms of angina pectoris Plan: STEMI 08/2020 resulting in urgent coronary bypass. On follow-up spring 2020 he did report chest discomfort similar to prior angina. He underwent cardiac catheterization on 01/17/2021 showing patent grafts, left main 70% stenosis, left circumflex ostial 70% stenosis, lad moderate diffuse disease, RCA moderate diffuse disease. He did have spasm in his radial graft and was put on amlodipine. He was not seen in our office between 01/26/2021 and 03/21/2023. Following last visit in March an echocardiogram was done showing EF 35-40%, inferior wall motion abnormality. He then underwent an exercise nuclear stress test on 04/22/2023 showing exercise 6 minutes mild shortness of breath, no EKG changes of ischemia, nuclear imaging showing transmural infarct of the basal to mid inferior lateral and adjacent lateral wall. This led to cardiac catheterization which was done on 10/15/2023 which showed patent grafts. Today he reports feeling well since his catheterization procedure. His right groin catheterization site is healing well. Will have him continue on medical management for stable CAD including aspirin, Plavix, atorvastatin high-dose with ideal LDL goal less than 70, metoprolol. Labs done on 10/29/2023 showed LDL 55. He is currently off amlodipine for unclear reason. He has history of having radial graft spasm. Will send a refill at 2.5 mg daily since Blood pressure is on the lower side. Signs and symptoms of angina reviewed with him. Cardiology follow-up in 4 months, sooner if needed (2) Cardiomyopathy: Code(s): I42.9 - Cardiomyopathy, unspecified Plan: Patient has reduced EF on last echocardiogram March 2023. Will obtain prior echo from the [facility] to see if EF reduction is newer for him. This may be residual ischemic cardiomyopathy from his STEMI 08/2020. He has no signs of heart failure on examination. He is on metoprolol XL and losartan for neurohormonal modulation. Orders were previously placed for Entresto and Farxiga. Was not able to afford either of these medications. He is not requiring diuretics at this time. Signs and symptoms of heart failure reviewed with him. Will recheck echo prior to his next visit. (3) Pure hypercholesterolemia: Code(s): E78.00 - Pure hypercholesterolemia, unspecified Plan: [place] LDL goal less than 70 in patient with CAD, coronary bypass. Currently well controlled. Continue atorvastatin 80 mg daily. (4) Diabetes mellitus: Code(s): E11.9 - Type 2 diabetes mellitus without complications Qualifiers: Diabetes mellitus complication status: without complication Diabetes mellitus care home insulin use: without care home use Diabetes mellitus type: type 2 Qualified Code(s): E11.9 - Type 2 diabetes mellitus without complications Plan: Hemoglobin A1c goal less than 7. Followed by his PCP. (5) PVCs (premature ventricular contractions): Code(s): I49.3 - Ventricular premature depolarization Plan: PVCs noted on prior EKG. Holter monitor done 03/28/2023 for 3 days showed sinus rhythm with average heart rate 71, heart rate range 46 to 106, frequent ventricular ectopy with burden 1.8%. At this time he denies any heart palpitations. Will continue on low-dose metoprolol. (6) S/P CABG (coronary artery bypass graft): Onset Date: ~08/2020 Code(s): Z95.1 - Presence of aortocoronary bypass graft Plan: AYALA to LAD, left radial graft to OM (7) S/P cardiac catheterization: Comment: 10/15/2023, left main distal 80% stenosis, patent AYALA to LAD, proximal LAD ostial 80% stenosis, left circumflex 60-70% diffuse proximal stenosis, ostial occlusion, left radial graft to OM patent Code(s): Z98.890 - Other specified postprocedural states Plan: Time spent on chart review, documentation, interview and assessment Orders: Orders CA echo transthoracic complete 01/01/24 I42.9 - Cardiomyopathy, unspecified Medications: New amlodipine 2.5 mg PO DAILY 90 tabs 3RF isosorbide mononitrate ER 30 mg PO DAILY 90 tabs 3RF Refilled losartan 50 mg PO DAILY 90 tabs 3RF Coding Level of Care Code Est Pt Level 4 (51710) Diagnoses Coronary artery disease of [place] artery of [place] heart with stable angina pectoris I25.118 Associated angina: with stable angina Coronary Disease-Associated Artery/Lesion type: [place] artery [place] vs. transplanted heart: [place] heart Cardiomyopathy I42.9 Pure hypercholesterolemia E78.00 Type 2 diabetes mellitus without complication, without long-term current use of insulin E11.9 Diabetes mellitus complication status: without complication Diabetes mellitus care home insulin use: without care home use Diabetes mellitus type: type 2 PVCs (premature ventricular contractions) I49.3 S/P CABG (coronary artery bypass graft) Z95.1 S/P cardiac catheterization Z98.890 CPT Codes EKG - CPT: [id number], Complete ([id number]) Time Spent (min) 30
== END 2023-10-31 10:57 | disposition home or self-care (01) ==
PROVIDERS: PCP Internal Medicine; Visit Provider Nurse Practitioner Family
DX: I25.118 Atherosclerotic heart disease of native coronary artery with other forms of angina pectoris (principal); I42.9 Cardiomyopathy, unspecified; E78.00 Pure hypercholesterolemia, unspecified; E11.9 Type 2 diabetes mellitus without complications; I49.3 Ventricular premature depolarization; Z95.1 Presence of aortocoronary bypass graft; Z98.890 Other specified postprocedural states
CPT/HCPCS: 93010; 99214

== ENCOUNTER → 2023-10-31 10:09 | Outpatient (BNVA) | payer MEDICARE, SELFPAY | PROVIDERS: PCP Internal Medicine; Visit Provider Nurse Practitioner Family | DX: I25.118 Atherosclerotic heart disease of native coronary artery with other forms of angina pectoris (principal); I42.9 Cardiomyopathy, unspecified; I49.3 Ventricular premature depolarization; E78.00 Pure hypercholesterolemia, unspecified; E11.9 Type 2 diabetes mellitus without complications; Z95.1 Presence of aortocoronary bypass graft; Z98.890 Other specified postprocedural states | CPT/HCPCS: 93005; 99212 ==

== ENCOUNTER 2023-11-05 10:39 | Outpatient (AMB) | payer MEDICARE, SELFPAY ==
--- NOTE | 2023-11-05 10:44 | MHC.PC.OV ---
Vital Signs 11/05/23 10:45 Height 5 ft 6 in Weight 198 lb 4 oz BMI 32.0 BP 118/72 Blood Pressure Location Lt brachial Position Sitting Pulse 71 Pulse Source Pulse Oximeter Pulse Oximetry (%) 98 Oxygen Delivery Method Room Air Intake Visit Reasons: HTN Safety And Health Manager Required: No Accompanied by: Self / Same As Patient Allergies No Known Allergies Allergy (Verified 11/05/23 11:19) Medication List - Last Reconciled 11/05/23 by Mike Myers MD amlodipine 2.5 mg PO DAILY aspirin 81 mg PO DAILY 90 days atorvastatin 80 mg PO BEDTIME 90 days cholecalciferol (vitamin D3) 50 mcg PO DAILY 90 days clopidogrel 75 mg PO DAILY 90 days isosorbide mononitrate ER 30 mg PO DAILY losartan 50 mg PO DAILY metformin 1,000 mg PO BID 90 days metoprolol succinate ER 25 mg PO DAILY peg 3350-electrolytes 236-22.74-6.74 -5.86 gram (Golytely) 240 mL PO Q10M 1 day Tobacco use date assessed: 11/05/23 Fall risk assessment: No Falls in past year Last assessed Fall Risk: 11/05/23 Dental Screening Dental Screen Date: 11/05/23 Did you have a dental visit in the last 12 months?: No Did you have a dental problem in the last 6 months where you did not have access to dental care?: No Was dental information given to patient?: No HPI HTN HPI Details Patient comes in today for his follow up visit States that he feels okay He denies any headaches or dizziness Denies any chest pains, no SOB No nausea/vomiting, no abdominal pain No change in bowel habits noted Needs a couple of his Rx refilled Was seen by cardiology for follow up last week and states that he is being scheduled for a repeat echocardiogram for follow up Had his follow up labs done last week - to discuss his results Was seen by podiatry as well recently and had his right big toenail removed He is also requesting for a referral to see dermatology for recurrent rash and skin breakdown often over both of his lower legs - states that these get very itchy and sometimes painful when they break out PFSH Medical History Vitamin D deficiency Sickle cell trait Obesity (BMI 30-39.9) Eczema of lower leg Overweight (BMI 25.0-29.9) Ex-smoker Pure hypercholesterolemia Diabetes mellitus Coronary artery disease Surgical History H/O colonoscopy History of cardiac cath S/P CABG (coronary artery bypass graft) (~08/2020) Family History Mother Heart problem Diabetes Father Heart problem Diabetes Sister Ovary cancer Other Family history non-contributory Social History Housing: House Alcohol intake: former Patient Tobacco Use Status: Former Tobacco user e-Cigarette/Vaping Use: Never Used Second Hand Smoke Exposure: Yes service: No Current occupational status: retired Cognitive needs: No Hearing needs: No Vision needs: Yes Questionnaire PHQ-9 Over the last 2 weeks, how often have you been bothered by any of the following problems? 1. Little interest or pleasure in doing things: not at all 2. Feeling down, depressed, or hopeless: not at all 3. Trouble falling or staying asleep, or sleeping too much: not at all 4. Feeling tired or having little energy: not at all 5. Poor appetite or overeating: not at all 6. Feeling bad about yourself - or that you are a failure or have let yourself or your family down: not at all 7. Trouble concentrating on things, such as reading the newspaper or watching television: not at all 8. Moving or speaking so slowly that other people could have noticed. Or the opposite - being so fidgety or restless that you have been moving around a lot more than usual: not at all 9. Thoughts that you would be better off or of hurting yourself in some way: not at all Total score: 0 Depression Screening Interpretation: Negative Depression Screening Done: Yes 72814 - PHQ-9 Billing: Yes Source: Developed by Drs. Zachary Winston, Kaylene Rich, Gabe Domínguez and colleagues, with an educational vinita from [employer]. Thrive Questionnaire Date Thrive assessed: 11/05/23 I am a: Patient What is your living situation today?: I have a steady place to live Within the past 12 months, did the food you bought not last and you didn't have the money to get more?: Never true Within the past 12 months, did you worry whether your food would run out before you got money to buy more?: Never true Do you have trouble paying for medicines?: No Do you have trouble getting transportation to medical appointments?: No Do you have trouble paying your heating and electricity bill?: No Do you have trouble taking care of your child, family member or friend?: No Do you have trouble with day-to-day activities such as bathing, preparing meals, shopping, managing finances, etc.?: No Are you currently unemployed and looking for a job?: No Are you interested in more education?: No Please select the resources that you would like help with: None Currently or been in a relationship where the following occur: no concerns reported THRIVE Score: 0 AUDIT C Alcohol Use Questionnaire (AUDIT-C) 1. How often do you have a drink containing alcohol?: Never 3. How often do you have six or more drinks on one occasion?: Never Total Score: 0 Score Reviewed/Action Taken: Yes VALERY-7 AMB Questionnaire VALERY-7 Date VALERY - 7 assessed: 11/05/23 Feeling nervous, anxious, or on edge: 0 = Not at all Not being able to stop or control worryin = Not at all Worrying too much about different things: 0 = Not at all Trouble relaxin = Not at all Being so restless that it is hard to sit still: 0 = Not at all Becoming easily annoyed or irritable: 0 = Not at all Feeling afraid as if something awful might happen: 0 = Not at all Total VALERY-7 score (0-4 normal; 5-9 mild; 10-14 moderate; 15-21 severe): 0 Source: Developed by Drs. Zachary Winston, Kaylene Rich, Gabe Domínguez and colleagues, with an educational vinita from [employer]. Review of Systems Const Denies chills, Denies fatigue, Denies fever(s) and Denies headache(s) ENT Denies dysphagia, Denies dizziness, Denies otalgia, Denies headache(s), Denies neck pain, Denies odynophagia and Denies sore throat Card Denies chest pain, Denies rapid heart rate, Denies irregular heart rhythm, Denies palpitations and Denies dyspnea Resp Denies chest congestion, Denies cough, Denies dyspnea and Denies wheezing GI Denies abdominal pain, Denies constipation, Denies dysphagia, Denies heartburn, Denies diarrhea, Denies nausea, Denies odynophagia and Denies vomiting Denies difficulty urinating, Denies dysuria, Denies urinary frequency and Denies urinary urgency Musc Denies back pain, Denies arthralgias and Denies neck pain Skin/Breast Denies lesions, Reports rash (recurrent, over both lower legs) and Denies unusual bruising Neuro Denies dizziness, Denies headache(s) and Denies paresthesias Endo Denies fatigue and Denies palpitations Aller/Immun Denies wheezing Physical exam (Primary Care) Vital Signs: Last Vital Signs Pulse 71 11/05/23 10:45 BP 118/72 11/05/23 10:45 Pulse Ox 98 11/05/23 10:45 Oxygen Delivery Method Room Air 11/05/23 10:45 BMI result Body Mass Index 32.0 Tobacco/Smoking Status: Tobacco use Status Tobacco use date assessed 11/05/23 11/05/23 10:51 Patient Tobacco Use Status Former Tobacco user 11/05/23 10:51 e-Cigarette/Vaping Use Never Used 11/05/23 10:51 PHQ-9: PHQ-9 Score PHQ-9: Total score 0 11/05/23 10:51 Depression Screening Interpretation: Negative Thrive Assessment: Date of Thrive Assessment Date Thrive assessed 11/05/23 11/05/23 10:51 Currently or been in a relationship where the following occur: no concerns reported Const General: no acute distress and alert HENMT Ears: TM's normal bilaterally and EAC's normal Throat: Yes posterior oropharynx normal and Yes tonsils normal (no TP congestion) Neck Neck: Yes no lymphadenopathy and Yes supple Thyroid: Thyroid normal Resp Auscultation: clear to auscultation bilaterally, no rales and no wheezes Cardio Rate: regular rate Rhythm: regular rhythm Heart sounds: no murmurs GI Palpation (GI): Soft to palpation and nontender Auscultation: normal bowel sounds General: Yes no CVA tenderness Back/Spine/Pelvis Back: no CVA tenderness Skin Other: (+) few scattered patchy hyperpigmented lesions over both lower legs Extrem Other: * right big toe presently in bandages - S/P toenail removal by podiatry General: Yes no clubbing, cyanosis or edema Results Reviewed Results Reviewed: Laboratory Tests 10/29/23 11:55 WBC 5.5 Hgb 12.6 L Hct 38.5 L Plt Count 179 Sodium 142 Potassium 4.1 Creatinine 1.01 Estimated GFR > 60 Fasting Glucose 124 H Hemoglobin A1c % 6.6 H Calcium 9.9 AST 19 ALT 14 B-Natriuretic Peptide 236 H Triglycerides 53 Cholesterol 103 LDL Cholesterol, Calc 55 HDL Cholesterol 38 L 25-OH Vitamin D Total 34.0 TSH 0.84 Assessment and Plan Assessment & Plan (1) Coronary artery disease: Comment: Status post posterolateral STEMI. He underwent bypass surgery with AYALA to LAD and left radial graft to OM in August 2020. Repeat cardiac catheterization on 01/17/2021 revealed patent grafts with diffuse coronary artery disease - recommend continuing aggressive medical management and risk factor modification Code(s): I25.10 - Atherosclerotic heart disease of [place] coronary artery without angina pectoris Qualifiers: Coronary Disease-Associated Artery/Lesion type: [place] artery [place] vs. transplanted heart: [place] heart Associated angina: with stable angina Qualified Code(s): I25.118 - Atherosclerotic heart disease of [place] coronary artery with other forms of angina pectoris Plan: S/P posterolateral STEMI - had bypass surgery with AYALA to LAD and left radial graft to OM in August 2020 Repeat stress testing was done followed by cardiac catheterization due to complaints of recurrent chest pain & discomfort following his CABG - repeat studies did not show any significant graft disease.? He has severe disease in the [place] coronary arteries and had spasm in the radial graft - symptoms of chest pain and discomfort improved with the addition of Amlodipine Echocardiogram done on 03/28/23 revealed moderately decreased left ventricular systolic function with EF between 35 to 40%, with some evidence of wall motion abnormalities but no valvular pathology seen. He had repeat stress testing done in April 2023 - EKG stress test came out normal; nuclear imaging studies showed (+) transmural infarction involving the basal to mid inferolateral/adjacent lateral wall. Gated LVEF is 64% during stress and 48% during rest. Transient ischemic dilatation not present Continue Clopidogrel 75 mg QD, Aspirin 81 mg QD, Metoprolol ER 25 mg QD and Entresto 24-26 mg BID - Amlodipine was discontinued when patient was started on Entresto Follow up with cardiology as scheduled He is currently being scheduled for repeat echocardiogram by cardiology for follow up (2) Pure hypercholesterolemia: Code(s): E78.00 - Pure hypercholesterolemia, unspecified Plan: Results of his labs done last week reviewed and discussed with patient Reinforced low cholesterol diet Continue Atorvastatin 80 mg QD Will recheck his labs and fasting lipids in 4 months for follow-up (3) Diabetes mellitus: Code(s): E11.9 - Type 2 diabetes mellitus without complications Qualifiers: Diabetes mellitus type: type 2 Diabetes mellitus remote computer terminal operator insulin use: without remote computer terminal operator use Diabetes mellitus complication status: without complication Qualified Code(s): E11.9 - Type 2 diabetes mellitus without complications Plan: HgbA1c was at 6.6% on his labs done last week (was at 6.8% a few months ago) - goal is < 7.0% Reinforced diabetic diet Continue Metformin 1000 mg BID and Farxiga 5 mg QD (4) COPD (chronic obstructive pulmonary disease): Code(s): J44.9 - Chronic obstructive pulmonary disease, unspecified Qualifiers: COPD type: unspecified COPD Qualified Code(s): J44.9 - Chronic obstructive pulmonary disease, unspecified Plan: Continue Stiolto Respimat 2.5-2.5 mg 2 puffs QD and Albuterol HFA 2 puffs 4 times a day as needed Follow up with pulmonary as scheduled (5) Eczema of lower leg: Code(s): L30.9 - Dermatitis, unspecified Plan: Continue Triamcinolone 0.5% cream BID Has had no improvement with Mometasone 0.1% cream QD previously; Clobetasol 0.05% lotion BID was not approved by his insurance He was referred to dermatology for this previously for further evaluation and management (suspect lichen planus) - is still awaiting appointment Per request, referral was made out again to dermatology (6) Vitamin D deficiency: Code(s): E55.9 - Vitamin D deficiency, unspecified Plan: Continue Vitamin D3 2000 units QD (7) Sickle cell trait: Code(s): D57.3 - Sickle-cell trait Plan: Patient tested POSITIVE for sickle cell trait when he was sent for sickle cell testing as he's had a few family members test positive recently Advised that with sickle cell trait, continuing observation and surveillance is the only thing needed with no other intervention required as there are really no medical conditions or problems associated with sickle cell trait (8) Obesity (BMI 30-39.9): Code(s): E66.9 - Obesity, unspecified Plan: Reinforced diet/exercise as tolerated/lose weight Plan Follow up in 4 months Orders: Orders Comprehensive Animas. Panel Fast 4 Months E78.00 - Pure hypercholesterolemia, unspecified UA CC w/rflx Micro + Cult 4 Months R30.0 - Dysuria Complete Blood Count Auto Diff 4 Months D64.9 - Anemia, unspecified Lipid Panel 4 Months E78.00 - Pure hypercholesterolemia, unspecified Microalbumin, Random (w Creat) 4 Months E11.9 - Type 2 diabetes mellitus without complications TSH reflex Free T4 4 Months E78.00 - Pure hypercholesterolemia, unspecified Vitamin D 25-OH Total 4 Months E55.9 - Vitamin D deficiency, unspecified Hemoglobin A1c 4 Months E11.9 - Type 2 diabetes mellitus without complications Referrals Dermatology Referral L30.9 - Dermatitis, unspecified, R21 - Rash and other nonspecific skin eruption Medications: Refilled metoprolol succinate ER 25 mg PO DAILY 90 tabs 1RF clopidogrel 75 mg PO DAILY 90 tabs 1RF 90 days I25.118 - Atherosclerotic heart disease of [place] coronary artery with other forms of angina pectoris Coding Level of Care Code Est Pt Level 4 (03555) Diagnoses Coronary artery disease of [place] artery of [place] heart with stable angina pectoris I25.118 Coronary Disease-Associated Artery/Lesion type: [place] artery [place] vs. transplanted heart: [place] heart Associated angina: with stable angina Pure hypercholesterolemia E78.00 Type 2 diabetes mellitus without complication, without long-term current use of insulin E11.9 Diabetes mellitus type: type 2 Diabetes mellitus remote computer terminal operator insulin use: without remote computer terminal operator use Diabetes mellitus complication status: without complication Chronic obstructive pulmonary disease, unspecified COPD type J44.9 COPD type: unspecified COPD Eczema of lower leg L30.9 Vitamin D deficiency E55.9 Sickle cell trait D57.3 Obesity (BMI 30-39.9) E66.9
[2023-11-05 10:45] VITALS: BP 118/72; PULSE 71; O2SAT 98; BMI 32.0
== END 2023-11-05 11:26 | disposition home or self-care (01) ==
PROVIDERS: PCP Internal Medicine; Visit Provider Internal Medicine
DX: E11.620 Type 2 diabetes mellitus with diabetic dermatitis (principal); I25.118 Atherosclerotic heart disease of native coronary artery with other forms of angina pectoris; J44.9 Chronic obstructive pulmonary disease, unspecified; D57.3 Sickle-cell trait; L30.9 Dermatitis, unspecified; E78.00 Pure hypercholesterolemia, unspecified; E55.9 Vitamin D deficiency, unspecified; E66.9 Obesity, unspecified
CPT/HCPCS: 99214

== ENCOUNTER → 2024-01-01 10:48 | Outpatient (REF) | payer MEDICARE, SELFPAY ==
--- NOTE | 2024-01-01 10:53 | CA_ITS ---
Transthoracic Echocardiogram Patient (Last, First, Middle): Aram Mcnamara, Gender: Male Date of : 1955 Age: 68 Procedure Date: 01/01/2024 Procedure Type: Transthoracic Echocardiogram Location: OP Height: 180.34 cm Weight: 88.91 kg BSA: 2.09 m2 Heart Rate: bpm BP: 122 / 76 mmHg Linux Network Engineer: LOYDA Referring MD: Jessica Fitzpatrick GRINDER SET UP OPERATOR JIG-Elsi Italian Teacher: Benson Shepherd MD Symptoms: I42.9 - Cardiomyopathy, unspecified Study Quality: Fair ECG Rhythm: Sinus Conclusions: - 1. Mildly reduced LV ejection fraction 45-50% with impaired relaxation filling pattern with underlying regional wall motion abnormality consistent with coronary artery disease 2. Cardiac valvular Dopplers within normal limits 3. Normal RV systolic pressure 4. No gross bradycardia effusion Findings Left Ventricle Normal left ventricular cavity size. There is normal left ventricular wall thickness. The left ventricular systolic function is mildly decreased. The visually estimated ejection fraction is between 45-50%. Spectral Doppler is indicative of an impaired relaxation filling pattern. E/E prime ratio is between 8 and 15 consistent with indeterminate filling pressures.Peak GLS is 16.1%, which is mildly reduced. Wall Motion Rest Echo Findings The inferolateral wall and mid inferoseptal segment are hypokinetic. The basal inferior, mid inferior, and basal inferoseptal segments are akinetic. All other scored wall segments showed normal motion. Right Ventricle Mildly increased right ventricular cavity size. There is low normal right ventricular systolic function. Atria The left atrium is normal in size. Interatrial shunt cannot be excluded. The right atrium is normal in size. Aortic Valve The aortic valve was not well visualized. There is mild calcification of the aortic valve. There is no aortic valve stenosis. There is no aortic valve regurgitation. Mitral Valve There is mild anterior and posterior mitral leaflet thickening. There is mild mitral annular calcification. There is trace mitral valve regurgitation. There is no mitral valve stenosis. Pulmonic Valve The pulmonic valve was not well visualized. Tricuspid Valve Likely normal tricuspid valve structure and function. There is mild tricuspid valve regurgitation. The right ventricular systolic pressure is normal. The right ventricular systolic pressure is 23 mmHg. Normal right atrial pressure. There is no evidence of pulmonary hypertension. Great Vessels The aorta was not well visualized. The pulmonary artery was not well visualized. There is no dilatation of the ascending aorta. Venous The inferior vena cava is normal in size and collapses greater than 50% with inspiration. Pericardium/Pleural There is no evidence of pericardial effusion. Prior Study Comparison Changes noted compared to prior study dated: 03/28/2023. LV ejection fraction has improved Measurements 2D Linear Measurements IVSd: 0.90 0.6-0.9/0.6-1.0 cm LVIDd: 5.02 3.9-5.3/4.2-5.9 cm LVIDd Index: 2.40 2.4-3.2/2.2-3.1 cm/m2 LVIDs: 4.10 2.0-3.6 cm LVPWd: 1.07 0.7-1.1 cm LA Diam: 3.10 2.7-3.8/3.0-4.0 cm LAIDs Index: 1.48 1.5-2.3 cm/m2 LV Mass: 222.87 67-162/88-224 g LV Mass Index: 106.63 43-95/49-115 g/m2 LVOT Diam: 2.40 3.0+(-)1.3 cm 2D Systolic Function EF 4C: 44.90 >55% EF 2C: 47.40 >55% EF BiP: 47.00 >55% Mitral Valve MV Pk E: 0.52 MV PK A: 0.84 MV Decel Time: 284.00 E/A: 0.60 E'Lateral: 7.51 E'Medial: 4.79 E/E' Med: 10.90 E/E' Lat: 7.00 PHT: 83.00 MVA PHT: 2.65 Decel Kings: 1.84 Aortic Valve AoV Pk Home: 1.05 AoV Mn Home: 0.81 AoV VTI: 0.25 AoV Pk Grad: 4.00 Aov Mn Grad: 3.00 DOUGLAS Cont.VTI: 3.41 LVOT LVOT Pk Home: 0.87 LVOT Mn Home: 0.52 LVOT VTI: 0.19 LVOT Pk Grad: 3.00 LVOT Mn Grad: 1.00 LVOT Diam: 2.40 LVOT Area: 4.52 Diastolic Function MV Pk E: 0.52 MV Pk A: 0.84 E/A: 0.60 E'Medial: 4.79 E/E' Med: 10.90 E' Laterial: 7.51 E/E' Lat: 7.00 Right Ventricle TAPSE (mm): 17.10 TVS' Home: 7.29 Tricuspid Valve TR Pk Home: 2.24 TR Pk Grad: 20.00 RA Press: 3.00 RVSP: 23.00 Great Vessels Aorta Sinus of Valsalva: 3.85 2.0-3.5 cm Ao Asc: 3.40 2.1-3.4 cm Updated in Other Vendor System with Status of Final Benson Shepherd MD electronically signed on 01/01/2024 2:16:23 PM with status of Final
== END ==
LOC: HO.CARD 10:48
PROVIDERS: PCP Internal Medicine; Visit Provider Nurse Practitioner Family
DX: I42.9 Cardiomyopathy, unspecified (principal)
CPT/HCPCS: 93306; 93356

== ENCOUNTER → 2024-01-01 10:53 | Outpatient (BNV) | payer MEDICARE, SELFPAY | PROVIDERS: PCP Internal Medicine; Visit Provider Internal Medicine Cardiovascular Disease | DX: I42.9 Cardiomyopathy, unspecified (principal) | CPT/HCPCS: 93306; 93356 ==

== ENCOUNTER 2024-02-11 08:02 | Day surgery (SDC) | payer MEDICARE, SELFPAY ==
[2024-02-07 15:14] VITALS: BMI 32.0
--- NOTE | 2024-02-10 10:32 | P.CONAN_ITS ---
Documented by User: Lisy Flanagan NP 02/10/24 10:35 HPI - Anesthesia Eval Consult details Narrative: 68yo M for Colonoscopy CAD s/p stents, CABG - asa, plavix Follows [facility] cardiology. Stable at 10/2023 office visit. [facility] Active Problems Active Problems: All Active Problems Rash and nonspecific skin eruption (Acute) Cardiomyopathy (Acute) S/P cardiac catheterization (Acute) Avulsion of toenail of right foot (Acute) Ischemic cardiomyopathy (Acute) Pre-op examination (Acute) Colon cancer screening (Acute) Onycholysis (Acute) Abnormal echocardiogram (Acute) PVCs (premature ventricular contractions) (Acute) Family history of sickle cell trait (Acute) Anemia (Acute) Annual physical exam (Acute) COPD (chronic obstructive pulmonary disease) (Acute) Stable angina (Acute) Chest discomfort (Acute) [place] (dyspnea on exertion) (Acute) Vitamin D deficiency (Acute) Sickle cell trait (Acute) S/P CABG (coronary artery bypass graft) (Acute ~08/2020) Obesity (BMI 30-39.9) (Acute) Eczema of lower leg (Acute) Overweight (BMI 25.0-29.9) (Acute) Ex-smoker (Acute) Pure hypercholesterolemia (Acute) Diabetes mellitus (Acute) Coronary artery disease (Acute) Past Medical History Medical History Cardiomyopathy Vitamin D deficiency Sickle cell trait Obesity (BMI 30-39.9) Eczema of lower leg Overweight (BMI 25.0-29.9) Ex-smoker Pure hypercholesterolemia Diabetes mellitus Coronary artery disease Family History Family History Mother Heart problem Diabetes Father Heart problem Diabetes Sister Ovary cancer Other Family history non-contributory Surgical History Surgical History H/O colonoscopy History of cardiac cath S/P CABG (coronary artery bypass graft) (~08/2020) Social History Social History Housing: House Alcohol intake: former Patient Tobacco Use Status: Former Tobacco user Tobacco use type: Cigarette e-Cigarette/Vaping Use: Never Used Second Hand Smoke Exposure: Yes Advance Directives: No (unknown) Advance Directives Information Provided: Yes service: No Current occupational status: retired Cognitive needs: No Hearing needs: No Vision needs: Yes Meds Allergies Allergy/AdvReac Type Severity Reaction Status Date / Time No Known Allergies Allergy Verified 02/11/24 08:38 Exam Height,Weight and Vital Signs: Height 5 ft 6 in Weight 89.811 kg Pertinent Lab Results Pertinent Lab Results: Laboratory Tests 10/29/23 11:55 WBC 5.5 Hgb 12.6 L Hct 38.5 L Plt Count 179 Sodium 142 Potassium 4.1 Chloride 108 Carbon Dioxide 28 BUN 13 Creatinine 1.01 Narrative Narrative: EKG 10/2023 normal sinus rhythm, no acute ST or T-wave abnormalities, rate 72, QTC 433 millisecond Cardiac cath 10/2023 = patent grafts ECHO 12/2023 Conclusions: - 1. Mildly reduced LV ejection fraction 45-50% with impaired relaxation filling pattern with underlying regional wall motion abnormality consistent with coronary artery disease 2. Cardiac valvular Dopplers within normal limits 3. Normal RV systolic pressure 4. No gross bradycardia effusion Assessment and Plan Assessment Anesthesia Assessment: Chart Reviewed Documented by User: Dottie Dumont MD 02/11/24 09:44 [facility] Active Problems Active Problems: All Active Problems Rash and nonspecific skin eruption (Acute) Cardiomyopathy (Acute) S/P cardiac catheterization (Acute) Avulsion of toenail of right foot (Acute) Ischemic cardiomyopathy (Acute) Pre-op examination (Acute) Colon cancer screening (Acute) Onycholysis (Acute) Abnormal echocardiogram (Acute) PVCs (premature ventricular contractions) (Acute) Family history of sickle cell trait (Acute) Anemia (Acute) Annual physical exam (Acute) COPD (chronic obstructive pulmonary disease) (Acute) Stable angina (Acute) Chest discomfort (Acute) [place] (dyspnea on exertion) (Acute) Vitamin D deficiency (Acute) Sickle cell trait (Acute) S/P CABG (coronary artery bypass graft) (Acute ~08/2020) Obesity (BMI 30-39.9) (Acute) Eczema of lower leg (Acute) Overweight (BMI 25.0-29.9) (Acute) Ex-smoker (Acute) Pure hypercholesterolemia (Acute) Diabetes mellitus (Acute) Coronary artery disease (Acute)- denies recent chest pain Past Medical History Medical History Cardiomyopathy Vitamin D deficiency Sickle cell trait Obesity (BMI 30-39.9) Eczema of lower leg Overweight (BMI 25.0-29.9) Ex-smoker Pure hypercholesterolemia Diabetes mellitus Coronary artery disease Family History Family History Mother Heart problem Diabetes Father Heart problem Diabetes Sister Ovary cancer Other Family history non-contributory Family history of problems with anesthesia: No Surgical History Surgical History H/O colonoscopy History of cardiac cath S/P CABG (coronary artery bypass graft) (~08/2020) History of Problems with Anesthesia: No Social History Social History Housing: House Alcohol intake: former Patient Tobacco Use Status: Former Tobacco user Tobacco use type: Cigarette e-Cigarette/Vaping Use: Never Used Second Hand Smoke Exposure: Yes Advance Directives: No (unknown) Advance Directives Information Provided: Yes service: No Current occupational status: retired Cognitive needs: No Hearing needs: No Vision needs: Yes Meds Allergies Allergy/AdvReac Type Severity Reaction Status Date / Time No Known Allergies Allergy Verified 02/11/24 08:38 Exam Height,Weight and Vital Signs: Height 5 ft 6 in Weight 89.811 kg Vital Signs Temp Pulse Resp BP Pulse Ox O2 Del Method 02/11/24 08:56 97.6 F 70 16 118/68 95 Room Air Airway Mallampati Class: III TM Dist: >3cm Neck ROM: Full Partial: Upper and Lower Loose/Missing/Broken Teeth: Yes Heart: RRR Lungs: CTAB Assessment and Plan Assessment Anesthesia Assessment: Anesthesia Plan Discussed and Chart Reviewed Final Anesthetic Review Family History of Problems with Anesthesia: No History of Problems with Anesthesia: No NPO: Yes ASA Class: III Final Preanesthetic Review: No Changes in Pt Med Stat, Meds/Allgs Chart Reviewed, Consent Obtained/Reviewed and Anes Risks/Benef Reviewed Patient Risk: Intermediate Procedure Risk: Low Assessment/Block/Sedation in SS: Assess/Block/Sedation-SS Anesthetic Plan Anesthetic Plan: MAC: and TIVA Disposition: Standard PACU
[2024-02-11 08:56] VITALS: BP 118/68; PULSE 70; RESP 16; TEMP 36.4; O2SAT 95
[2024-02-11 09:00] VITALS: BMI 32.3
[2024-02-11] MEDS: Lactated Ringers 1,000 ML 100 ML IVCONT (09:00)
[2024-02-11 09:05] LABS: Glucose, Whole Blood 102 mg/dL (60-115)
--- NOTE | 2024-02-11 09:14 | P.HPSUR_ITS ---
Pre-Procedural Eval Section A - 24 Hr Update-Section A only Date of Service: 02/11/24 Section B - Complete if H&P > 30 days Chief Complaint: screening Relevant Family History (Specify if Yes): No Relevant Social History: None Present Medications: see Short Stay Collaborative assessment Medical History: Significant History (Cardiomyopathy Vitamin D deficiency Sickle cell trait Obesity (BMI 30-39.9) Eczema of lower leg Overweight (BMI 25.0-29.9) Ex-smoker Pure hypercholesterolemia Diabetes mellitus Coronary artery disease) History of Previous Operations: Relevant previous surgery/procedure and date(s) ( H/O colonoscopy History of cardiac cath S/P CABG (coronary artery bypass graft) (~08/2020)) Allergies: Allergies Allergy/AdvReac Type Severity Reaction Status Date / Time No Known Allergies Allergy Verified 02/11/24 08:38 Review of Systems Sugical H&P ROS: Negative: Constitution, Cardiovascular, Respiratory, Neurological, Psychiatric, Hem-Onc, Allergic/Immunologic, Gastrointestinal, Genitourinary, Musculoskeletal, Integumentary, Endocrine and Eye s/Ears/Nose/Throat Exam Surgical H&P Exam: Normal: HEENT, Normal: Heart, Normal: Lungs, Normal: Extremities, Normal: Abdomen, Normal: Skin and Normal: Neurological Plan Diagnosis/Plan: Unchanged I have reviewed the history and physical and performed a pertinent physical examination on my patient. No changes have occurred unless specified. Time Spent With Patient Time: Total time managing care of this patient today ____ minutes.
--- NOTE | 2024-02-11 09:25 | HO.OPN-COLON ---
Colonoscopy Operative Note Operative Note Date of Service: 02/11/24 Narrative: Operative Information Procedure Description: Colonoscopy Indication: screening Anesthesia: MAC COLONOSCOPY Instrument: Olympus variable stiffness ADULT scope 190L Colonoscopy Monitoring: Vital signs and clinical assessment, continuous EKG monitoring, Pulse oximetry, Carbon Dioxide monitoring and blood pressure monitoring were done throughout the procedure. Colon withdrawal time was 14 minutes. Procedure: The patient was placed in the left lateral decubitis position and pre-procedure medications were administered. After a digital rectal examination of the ano-rectum, the video colonoscope was inserted into the rectum and advanced through the colon to the cecum/TI. The colonoscope was slowly withdrawn in a retrograde panoramic fashion and the colon mucosa was carefully examined including a retroflexed view of the rectum. Findings and interventions are described below. Procedure Difficulty: easy Findings: Terminal Ileum-normal Cecum:normal Right sided retroflexion- normal Ascending Colon: normal Transverse Colon -normal Descending Colon:normal Sigmoid Colon: mild to moderate diverticulosis, 7-9 mm sessile polyp removed with cold snare Rectum: Retroflexion with small internal hemorrhoids seen, grade I Anorectum - normal Intervention: cold snare Colon preparation: [place] Bowel Preparation Scale Right colon; 1-2 Transverse colon: 2 Left colon; 1-2 (0 = Unprepared colon segment with mucosa not seen due to solid stool that cannot be cleared. 1 = Portion of mucosa of the colon segment seen, but other areas of the colon segment not well seen due to staining, residual stool and/or opaque liquid. 2 = Minor amount of residual staining, small fragments of stool and/or opaque liquid, but mucosa of colon segment seen well. 3 = Entire mucosa of colon segment seen well with no residual staining, small fragments of stool or opaque liquid) Impression and Post Procedure Diagnosis: diverticulosis colon polyp internal hemorrhoids Plan: High fiber diet leaflet Avoid straining at stool, epsom salts and sitz bath, anusol supps or cream Repeat Colonoscopy in 5 years due to polyp and areas of fair prep or earlier if clinically indicated Above findings were reviewed with the patient and relevant handouts were provided if indicated.
[2024-02-11 09:56] VITALS: BP 119/58; PULSE 79; RESP 16; TEMP 36.1; O2SAT 94
[2024-02-11 10:11] VITALS: BP 118/66; PULSE 74; RESP 15; O2SAT 95
[2024-02-11 10:27] VITALS: BP 129/74; PULSE 66; RESP 16; TEMP 36.2; O2SAT 95
== END 2024-02-11 11:30 | disposition home or self-care (01) ==
PROVIDERS: PCP Internal Medicine; Visit Provider Internal Medicine Gastroenterology
PROC: 0DJD8ZZ Inspection of Lower Intestinal Tract, Via Natural or Artificial Opening Endoscopic (ICD-10-PCS; CPT 45378; principal; 2024-02-11 09:00)
DX: Z12.11 Encounter for screening for malignant neoplasm of colon (principal); D12.5 Benign neoplasm of sigmoid colon; K57.30 Diverticulosis of large intestine without perforation or abscess without bleeding; K64.0 First degree hemorrhoids; E11.9 Type 2 diabetes mellitus without complications; J44.9 Chronic obstructive pulmonary disease, unspecified; I25.10 Atherosclerotic heart disease of native coronary artery without angina pectoris; Z95.1 Presence of aortocoronary bypass graft
CPT/HCPCS: 45385; 82947; 88305; J2704

== ENCOUNTER → 2024-02-11 08:02 | Outpatient (BNV) | payer MEDICARE, SELFPAY | PROVIDERS: PCP Internal Medicine; Visit Provider Internal Medicine Gastroenterology | DX: Z12.11 Encounter for screening for malignant neoplasm of colon (principal); D12.5 Benign neoplasm of sigmoid colon; K57.30 Diverticulosis of large intestine without perforation or abscess without bleeding; K64.0 First degree hemorrhoids | CPT/HCPCS: 45385 ==

== ENCOUNTER 2024-03-18 11:11 | Outpatient (AMB) | payer MEDICARE, SELFPAY ==
[2024-03-18 11:13] VITALS: BP 120/60; PULSE 79; BMI 32.5
--- NOTE | 2024-03-18 11:13 | MHC.OFFVIS ---
Vital Signs 03/18/24 11:13 Height 5 ft 6 in Weight 201 lb 8.04 oz BMI 32.5 BP 120/60 Blood Pressure Location Lt brachial Position Sitting Pulse 79 Pulse Source Pulse Oximeter Intake Visit Reasons: 3 month follow up r/s 01/12 Assistant Basketball Coach Required: Yes Assistant Basketball Coach Name: [id number]/bhavnabecky/upper sorbian Accompanied by: Spouse Allergies No Known Allergies Allergy (Verified 02/11/24 08:38) Medication List - Last Reconciled 03/18/24 by Reji Harry MD amlodipine 2.5 mg PO DAILY aspirin 81 mg PO DAILY 90 days atorvastatin 80 mg PO BEDTIME 90 days cholecalciferol (vitamin D3) 50 mcg PO DAILY 90 days clopidogrel 75 mg PO DAILY 90 days isosorbide mononitrate ER 30 mg PO DAILY losartan 50 mg PO DAILY metformin 1,000 mg PO BID 90 days metoprolol succinate ER 25 mg PO DAILY peg 3350-electrolytes 236-22.74-6.74 -5.86 gram (Golytely) 240 mL PO Q10M 1 day HPI Comments Details: Pleasant 69-year-old gentleman here for follow-up. He was seen at [facility] in the setting on for posterior STEMI. He was taken emergently for cardiac catheterization which revealed severe distal left main stenosis along with ostial left circumflex disease. Replacing her aortic balloon pump which improved his symptoms and ECG changes. He was subsequently sent for urgent bypass surgery and underwent AYALA to LAD and left radial graft to his OM. He had respiratory failure and prolonged hospitalization. He did well afterwards. On last visit he complained of chest tightness similar to be bypassed. He was sent for stress testing which was normal. After due for diagnostic angiogram. This showed patent grafts with [place] coronary disease. Right coronary artery was diffusely disease and was not grafted. We encountered spasm in the radial graft to the OM after engagement. Patient was started on amlodipine after the cath. He returns for f/u today. He is doing well since addition of amlodipine. No side effects. Catheterization report had explained to the patient and . Emanating 2022: He returns for follow-up. It appears he saw us in 2020 and did not sure he was for 2 years. He subsequently came back and was seen by Jessica in our office. He had an echocardiogram which showed EF of 35-40%. He had stress test performed where lateral infarct was noticed. He previously had bypass surgery for left main stenosis with AYALA to LAD and a radial graft to OM. Radial graft was noted to have spasm and he was started on amlodipine previously with good improvement in symptoms. Given cardiomyopathy has been started on medications including metoprolol succinate, Entresto and Farxiga. He is saying that Farxiga and Entresto were very spends a for him and cannot afford them. He also added that he has missed his medications for few days and was getting left-sided pressure-like feeling. This is similar to his anginal pain. 03/18/24: He is here for f/u. He underwent cardiac cath in Oct 2023. AYALA to LAD and SVG to OM were patent. Diffuse moderate disease in the RCA was noted but it did not explain cardiomyopathy and LV dysfunction. He had repeat echo in december 2023- EF 45 to 50% with inferior and inferolateral wall motion abnormalities. EF has improved. Clinically he has been doing well and is denying any SOB and CP. Euvolemic. PFSH Medical History Cardiomyopathy Vitamin D deficiency Sickle cell trait Obesity (BMI 30-39.9) Eczema of lower leg Overweight (BMI 25.0-29.9) Ex-smoker Pure hypercholesterolemia Diabetes mellitus Coronary artery disease Surgical History H/O colonoscopy History of cardiac cath S/P CABG (coronary artery bypass graft) (~08/2020) Family History Mother Heart problem Diabetes Father Heart problem Diabetes Sister Ovary cancer Other Family history non-contributory Social History Housing: House Alcohol intake: former Patient Tobacco Use Status: Former Tobacco user Tobacco use type: Cigarette e-Cigarette/Vaping Use: Never Used Second Hand Smoke Exposure: Yes service: No Current occupational status: retired Cognitive needs: No Hearing needs: No Vision needs: Yes Review of Systems Const Denies chills, Denies fatigue, Denies fever(s), Denies frequent falls, Denies weakness, Denies weight gain and Denies weight loss ENT Denies dizziness Card Denies chest pain, Denies leg edema, Denies lightheadedness, Denies palpitations, Denies dyspnea and Denies dyspnea on exertion Resp Denies cough, Denies dyspnea and Denies dyspnea on exertion GI Denies hematochezia Musc Denies abnormal gait, Denies muscle weakness, Denies numbness, Denies radiating pain into limb and Denies tingling Neuro Denies abnormal gait, Denies dizziness, Denies frequent falls, Denies numbness, Denies tingling and Denies weakness Endo Denies fatigue and Denies palpitations Physical Exam Vital Signs: Last Vital Signs Pulse 79 03/18/24 11:13 BP 120/60 03/18/24 11:13 BMI result Body Mass Index 32.5 GENERAL APPEARANCE: in no acute distress, pleasant. NECK: no carotid bruit, no jugular venous distention. SKIN: no suspicious lesions, warm and dry. HEART: no murmurs, regular rate and rhythm. LUNGS: clear to auscultation bilaterally. ABDOMEN: soft, nontender. EXTREMITIES: no edema. PERIPHERAL PULSES: equal. NEUROLOGIC: No gross deficits, AAO X 3 Assessment & Plan Assessment & Plan (1) Ischemic cardiomyopathy: Code(s): I25.5 - Ischemic cardiomyopathy Category: Medical (2) Stable angina: Code(s): I20.8 - Other forms of angina pectoris Category: Medical Plan 69 male with ischemic cardiomyopathy. He has stable angina. Patent AYALA and radial graft to OM. EF improving with GDMT. Adding spironolactone. Repeat labs in 10 days. f/u 4 months. Orders: Orders B Type Natriuretic Peptide Today I25.5 - Ischemic cardiomyopathy Basic Metabolic Panel Today I25.5 - Ischemic cardiomyopathy Medications: New spironolactone 25 mg PO DAILY 90 tabs 4RF I25.5 - Ischemic cardiomyopathy Coding Level of Care Code Est Pt Level 4 (96839) Diagnoses Ischemic cardiomyopathy I25.5 Stable angina I20.8
== END 2024-03-18 11:33 | disposition home or self-care (01) ==
PROVIDERS: PCP Internal Medicine; Visit Provider Internal Medicine Cardiovascular Disease
DX: I25.5 Ischemic cardiomyopathy (principal); I20.89 Other forms of angina pectoris
CPT/HCPCS: 99214

== ENCOUNTER → 2024-03-18 11:11 | Outpatient (BNVA) | payer MEDICARE, SELFPAY | PROVIDERS: PCP Internal Medicine; Visit Provider Internal Medicine Cardiovascular Disease | DX: I25.5 Ischemic cardiomyopathy (principal); I20.89 Other forms of angina pectoris | CPT/HCPCS: 99212 ==

== ENCOUNTER 2024-03-27 08:25 | Outpatient (REF) | payer MEDICARE, SELFPAY ==
[2024-03-27 08:55] LABS: MANUAL DIFF FLAG NO
[2024-03-27 09:04] LABS: Basophils Percent Auto 0.5 % (0-2); Eosinophils Absolute Auto 0.1 X10*3/uL (0.0-0.4); Eosinophils Percent Auto 1.5 % (0-4); Hematocrit 36.2 % (42.0-52.0); Hemoglobin 12.5 g/dl (14.0-18.0); Imm Gran Abs Auto 0.01 X10*3/uL (0.00-0.03); Imm Gran Pct Auto 0.1 % (0.0-0.4); Lymphocytes Absolute Auto 2.5 X10*3/uL (1.2-4.9); Lymphocytes Percent Auto 31.3 % (20-40); Mean Corpuscular HGB Conc 34.5 g/dl (31.0-36.0); Mean Corpuscular Hemoglobin 28.7 pg (27.0-33.0); Mean Corpuscular Volume 83.2 fL (80.0-98.0); Mean Platelet Volume 11.8 fL (9.4-12.4); Monocytes Absolute Auto 0.5 X10*3/uL (0.1-1.2); Monocytes Percent Auto 6.3 % (2-11); Neutrophils Absolute Auto 4.8 x10*3/uL (2.0-8.3); Neutrophils Percent Auto 60.3 % (45-73); Platelet Count 162 X10*3/uL (160-400); Red Blood Count 4.35 X10*6/uL (4.60-5.80); Red Cell Distribution Width 14.6 % (11.0-16.0)
[2024-03-27 09:12] LABS: Estimated Average Glucose 151 mg/dL; Hemoglobin A1c % 6.9 % (<6.0)
[2024-03-27 09:40] LABS: Appearance Urine Clear; Color Urine Yellow; Glucose Urine UA Negative (Negative); Leukocyte Esterase Urine Negative (Negative); Nitrite Urine Negative (Negative); PH 5.5 (5.0-9.0); Urine Blood Negative (Negative); Urine Ketones Trace mg/dL (Negative); Urine Protein Negative (Neg-Trace)
[2024-03-27 09:46] LABS: B Type Natriuretic Peptide 42 pg/mL (<100)
[2024-03-27 09:51] LABS: Alanine Aminotransferase 15 U/L (0-40); Albumin Level 4.4 g/dL (3.5-5.0); Alkaline Phosphatase 69 U/L (39-117); Anion Gap 16 (12-20); Aspartate Amino Transferase 25 U/L (5-37); Bilirubin Total 0.6 mg/dL (0.0-1.0); Blood Urea Nitrogen 25 mg/dL (9-16); Calcium 10.2 mg/dL (8.4-10.2); Carbon Dioxide 21 mmol/L (22-29); Chloride 107 mmol/L (96-108); Cholesterol 121 mg/dL (<200); Estimated Glomerular Filt Rate 55; Glucose Fasting 152 mg/dL (60-99); Glucose Random 153 mg/dL (60-115); HDL Cholesterol 40 mg/dL (>40); LDL Cholesterol Calculated 66 mg/dL (<100); Potassium 4.1 mmol/L (3.3-5.1); Sodium 140 mmol/L (135-145); Total Protein 7.7 g/dL (6.5-8.0); Triglycerides 75 mg/dL (<150)
[2024-03-27 10:01] LABS: TSH reflex Free T4 0.98 uIU/mL (0.32-4.0); Vitamin D 25-OH Total 46.7 ng/mL (>30)
[2024-03-27 10:11] LABS: Creatinine Urine 215.41 mg/dL; Microalbum/Creatinine Ratio Ur 8.3 ug/mg cr (<30)
== END 2024-03-27 08:26 | disposition home or self-care (01) ==
LOC: HO.LAB 08:25
PROVIDERS: PCP Internal Medicine; Visit Provider Internal Medicine Cardiovascular Disease
DX: I25.5 Ischemic cardiomyopathy (principal); E78.00 Pure hypercholesterolemia, unspecified; R30.0 Dysuria; E11.9 Type 2 diabetes mellitus without complications; D64.9 Anemia, unspecified; E55.9 Vitamin D deficiency, unspecified
CPT/HCPCS: 36415; 80048; 80053; 80061; 81003; 82043; 82306; 82570; 83036; 83880; 84443; 85025

== ENCOUNTER 2024-07-09 11:17 | Outpatient (AMB) | payer MEDICARE, SELFPAY ==
[2024-07-09 11:30] VITALS: BP 116/74; PULSE 76; O2SAT 98; BMI 32.1
--- NOTE | 2024-07-09 11:30 | A.OFFPC_ITS ---
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: No Accompanied by: Self / Same As Patient Allergies No Known Allergies Allergy (Verified 07/12/24 07:35) Medication List - Last Reconciled 07/12/24 by Mike Myers MD amlodipine 2.5 mg PO DAILY aspirin 81 mg PO DAILY 90 days atorvastatin 80 mg PO BEDTIME 90 days cholecalciferol (vitamin D3) 50 mcg PO DAILY 90 days clopidogrel 75 mg PO DAILY 90 days isosorbide mononitrate ER 30 mg PO DAILY losartan 50 mg PO DAILY metformin 1,000 mg PO BID 90 days metoprolol succinate ER 25 mg PO DAILY peg 3350-electrolytes 236-22.74-6.74 -5.86 gram (Golytely) 240 mL PO Q10M 1 day spironolactone 25 mg PO DAILY Tobacco use date assessed: 07/09/24 Fall risk assessment: No Falls in past year Last assessed Fall Risk: 07/09/24 Dental Screening Dental Screen Date: 07/09/24 Did you have a dental visit in the last 12 months?: Yes Did you have a dental problem in the last 6 months where you did not have access to dental care?: No Was dental information given to patient?: Patient has dentist HPI annual exam/ see comments HPI Details Patient comes in today for his annual physical examination States that he feels okay He denies any headaches or dizziness Denies any chest pains, no SOB No nausea/vomiting, no abdominal pain No change in bowel habits noted He denies any acute urinary symptoms He does not have any follow up labs done recently - was last seen back in October 2023 He had his screening colonoscopy done back on 02/11/2024 - procedure came out normal but he was recommended to get repeat colonoscopy in 5 years due to fair prep [facility] History Cardiomyopathy Vitamin D deficiency Sickle cell trait Obesity (BMI 30-39.9) Eczema of lower leg Overweight (BMI 25.0-29.9) Ex-smoker Pure hypercholesterolemia Diabetes mellitus Coronary artery disease Surgical History H/O colonoscopy History of cardiac cath S/P CABG (coronary artery bypass graft) (~08/2020) Family History Mother Heart problem Diabetes Father Heart problem Diabetes Sister Ovary cancer Other Family history non-contributory Social History Housing: House Alcohol intake: former Patient Tobacco Use Status: Former Tobacco user Tobacco use type: Cigarette e-Cigarette/Vaping Use: Never Used Second Hand Smoke Exposure: Yes service: No Current occupational status: retired Cognitive needs: No Hearing needs: No Vision needs: Yes Questionnaire PHQ-9 Over the last 2 weeks, how often have you been bothered by any of the following problems? 1. Little interest or pleasure in doing things: not at all 2. Feeling down, depressed, or hopeless: not at all 3. Trouble falling or staying asleep, or sleeping too much: several days 4. Feeling tired or having little energy: not at all 5. Poor appetite or overeating: not at all 6. Feeling bad about yourself - or that you are a failure or have let yourself or your family down: not at all 7. Trouble concentrating on things, such as reading the newspaper or watching television: not at all 8. Moving or speaking so slowly that other people could have noticed. Or the opposite - being so fidgety or restless that you have been moving around a lot more than usual: not at all 9. Thoughts that you would be better off or of hurting yourself in some way: not at all Total score: 1 Depression Screening Interpretation: Negative Depression Screening Done: Yes 00417 - PHQ-9 Billing: Yes Source: Developed by Drs. Zachary Winston, Kaylene Rich, Gabe Domínguez and colleagues, with an educational vinita from [employer]. Thrive Questionnaire Date Thrive assessed: 07/09/24 I am a: Patient What is your living situation today?: I have a steady place to live Within the past 12 months, did the food you bought not last and you didn't have the money to get more?: Never true Within the past 12 months, did you worry whether your food would run out before you got money to buy more?: Never true Do you have trouble paying for medicines?: No Do you have trouble getting transportation to medical appointments?: No Do you have trouble paying your heating and electricity bill?: No Do you have trouble taking care of your child, family member or friend?: No Do you have trouble with day-to-day activities such as bathing, preparing meals, shopping, managing finances, etc.?: No Are you currently unemployed and looking for a job?: No Are you interested in more education?: No Please select the resources that you would like help with: None Currently or been in a relationship where the following occur: No concerns reported THRIVE Score: 0 AUDIT C Alcohol Use Questionnaire (AUDIT-C) 1. How often do you have a drink containing alcohol?: Never 3. How often do you have six or more drinks on one occasion?: Never Total Score: 0 Score Reviewed/Action Taken: Yes VALERY-7 AMB Questionnaire VALERY-7 Date VALERY - 7 assessed: 07/09/24 Feeling nervous, anxious, or on edge: 0 = Not at all Not being able to stop or control worryin = Not at all Worrying too much about different things: 0 = Not at all Trouble relaxin = Not at all Being so restless that it is hard to sit still: 0 = Not at all Becoming easily annoyed or irritable: 1 = Several days Feeling afraid as if something awful might happen: 0 = Not at all Total VALERY-7 score (0-4 normal; 5-9 mild; 10-14 moderate; 15-21 severe): 1 Source: Developed by Drs. Zachary Winston, Kaylene Rich, Gabe Domínguez and colleagues, with an educational vinita from [employer]. Review of Systems Const Denies chills, Denies fatigue, Denies fever(s), Denies headache(s), Denies malaise and Denies weakness Eyes Denies blurry vision, Denies change in vision, Denies irritation and Denies itchy eyes ENT Denies dysphagia, Denies dizziness, Denies otalgia, Denies headache(s), Denies nasal congestion, Denies neck pain, Denies odynophagia and Denies sore throat Card Denies chest pain, Denies rapid heart rate, Denies irregular heart rhythm, Denies palpitations and Denies dyspnea Resp Denies chest congestion, Denies cough, Denies dyspnea and Denies wheezing GI Denies abdominal pain, Denies bloating, Denies constipation, Denies dysphagia, Denies heartburn, Denies diarrhea, Denies nausea, Denies odynophagia and Denies vomiting Denies hematuria, Denies difficulty urinating, Denies dysuria, Denies urinary frequency and Denies urinary urgency Musc Denies back pain, Denies arthralgias, Denies joint swelling, Denies muscle weakness and Denies neck pain Skin/Breast Denies change in pigmentation, Denies lesions, Denies rash and Denies unusual bruising Neuro Denies dizziness, Denies headache(s), Denies paresthesias and Denies weakness Endo Denies fatigue and Denies palpitations Aller/Immun Denies itchy eyes and Denies wheezing Physical exam (Primary Care) Vital Signs: Last Vital Signs Pulse 76 07/09/24 11:30 BP 116/74 07/09/24 11:30 Pulse Ox 98 07/09/24 11:30 Oxygen Delivery Method Room Air 07/09/24 11:30 BMI result Body Mass Index 32.1 Tobacco/Smoking Status: Tobacco use Status Tobacco use date assessed 07/09/24 07/09/24 11:38 Patient Tobacco Use Status Former Tobacco user 07/09/24 11:38 Tobacco use type Cigarette 07/09/24 11:38 e-Cigarette/Vaping Use Never Used 07/09/24 11:38 PHQ-9: PHQ-9 Score PHQ-9: Total score 1 07/09/24 14:06 Depression Screening Interpretation: Negative Thrive Assessment: Date of Thrive Assessment Date Thrive assessed 07/09/24 07/09/24 11:38 Currently or been in a relationship where the following occur: No concerns reported Const General: no acute distress, alert and awake Orientation/consciousness: patient oriented x3 HENMT Head: Yes normocephalic and Yes atraumatic Ears: external ears normal, TM's normal bilaterally and EAC's normal General nose exam: No nasal discharge present Face and sinus: Yes normal facial exam and Yes sinuses nontender Teeth and gingiva: dentition normal Throat: Yes posterior oropharynx normal and Yes tonsils normal (no TP congestion) Eyes Eyelids: Yes eyelids normal Conjunctivae: conjunctivae normal Pupils: Equal, round and reactive pupils present EOM: EOMs intact bilaterally Neck Neck: Yes no lymphadenopathy and Yes supple Thyroid: Thyroid normal Resp Auscultation: clear to auscultation bilaterally, no rales and no wheezes Cardio Rate: regular rate Rhythm: regular rhythm Heart sounds: no murmurs GI Palpation (GI): Soft to palpation, nontender and No hepatosplenomegaly present Auscultation: normal bowel sounds General: Yes no CVA tenderness Back/Spine/Pelvis Back: no CVA tenderness Thoracic/Lumbar Spine: thoracic and lumbar spine normal to inspection Skin Lesions: no lesions Rashes: no rashes Neuro General: patient oriented x3, moves all extremities, no focal motor deficits and CN's II-XI intact bilaterally Cranial nerves: Yes Equal, round and reactive pupils present Cognition (Neuro): normal cognition Gait exam (Neuro): Normal gait present Extrem General: Yes no clubbing, cyanosis or edema Office Procedures Flu Questionnaire Does the patient have a severe egg allergy?: No Results AMB Hemoglobin A1c AMB Hemoglobin A1c 6.8 % Last Edit by PRISCILLA Rich on 07/09/24 14 :07 Immunizations Fluarix Triv [id number] (PF) 45 mcg (15 mcg x 3)/0.5 mL IM syringe Performing Provider: Mike Myers MD [facility] [place] [facility] Documented (not given) by: PRISCILLA Rich on 07/09/24 11:41 Reason Not Given: Patient Refused Results Reviewed Results Reviewed: Laboratory Last Values Hgb A1c (Clinic) 6.8 % (4.0-6.0) H 07/09/24 11:40 Laboratory Tests 03/27/24 08:53 Hemoglobin A1c % 6.9 H Triglycerides 75 Cholesterol 121 LDL Cholesterol, Calc 66 HDL Cholesterol 40 L Coding Level of Care Code Est Pt Level 4 (98698) Complex EM visit Add On G2211 Diagnoses Annual physical exam Z00.00 Coronary artery disease of [place] artery of [place] heart with stable angina pectoris I25.118 Coronary Disease-Associated Artery/Lesion type: [place] artery [place] vs. transplanted heart: [place] heart Associated angina: with stable angina Pure hypercholesterolemia E78.00 Type 2 diabetes mellitus without complication, without long-term current use of insulin E11.9 Diabetes mellitus type: type 2 Diabetes mellitus group home insulin use: without group home use Diabetes mellitus complication status: without complication Chronic obstructive pulmonary disease, unspecified COPD type J44.9 COPD type: unspecified COPD Eczema of lower leg L30.9 Vitamin D deficiency E55.9 Sickle cell trait D57.3 Obesity (BMI 30-39.9) E66.9 Assessment & Plan Assessment & Plan (1) Annual physical exam: Code(s): Z00.00 - Encounter for general adult medical examination without abnormal findings Category: Medical Plan: Patient did not have any follow up labs done recently but his labs done back in March 2024 were mostly acceptable He is currently up-to-date with his colon cancer screening (2) Coronary artery disease: Comment: Status post posterolateral STEMI. He underwent bypass surgery with AYALA to LAD and left radial graft to OM in August 2020. Repeat cardiac catheterization on 01/17/2021 revealed patent grafts with diffuse coronary artery disease - recommend continuing aggressive medical management and risk factor modification Code(s): I25.10 - Atherosclerotic heart disease of [place] coronary artery without angina pectoris Category: Social Hx Qualifiers: Coronary Disease-Associated Artery/Lesion type: [place] artery [place] vs. transplanted heart: [place] heart Associated angina: with stable angina Qualified Code(s): I25.118 - Atherosclerotic heart disease of [place] coronary artery with other forms of angina pectoris Plan: S/P posterolateral STEMI - he had bypass surgery with AYALA to LAD and left radial graft to OM in August 2020 Repeat stress testing was followed by cardiac catheterization due to complaints of recurrent chest pain & discomfort following his CABG - repeat studies did not show any significant graft disease.? He has severe disease in the [place] coronary arteries and had spasm in the radial graft - symptoms of chest pain and discomfort improved with the addition of Amlodipine Echocardiogram done on 03/28/23 revealed moderately decreased left ventricular systolic function with EF between 35 to 40%, with some evidence of wall motion abnormalities but no valvular pathology seen. He had repeat stress testing done in April 2023 - EKG stress test came out normal; nuclear imaging studies showed (+) transmural infarction involving the basal to mid inferolateral/adjacent lateral wall. Gated LVEF is 64% during stress and 48% during rest. Transient ischemic dilatation not present His most recent echocardiogram done on 01/01/2024 revealed (+) mildly reduced LV ejection fraction 45-50% with impaired relaxation filling pattern with underlying regional wall motion abnormality consistent with coronary artery disease. Cardiac valvular dopplers are within normal limits, RV systolic pressure is normal and there are no gross pericardial effusion Continue Clopidogrel 75 mg QD, Aspirin 81 mg QD, Metoprolol ER 25 mg QD and Entresto 24-26 mg BID - Amlodipine was discontinued when patient was started on Entresto Follow up with cardiology as scheduled (3) Pure hypercholesterolemia: Code(s): E78.00 - Pure hypercholesterolemia, unspecified Category: Medical Plan: He has no follow up labs done recently but his cholesterol numbers were at goal back in March 2024 Reinforced low cholesterol diet Continue Atorvastatin 80 mg QD Will recheck his labs and fasting lipids in 4 months for follow-up (4) Diabetes mellitus: Code(s): E11.9 - Type 2 diabetes mellitus without complications Category: Medical Qualifiers: Diabetes mellitus type: type 2 Diabetes mellitus terminal clerk insulin use: without terminal clerk use Diabetes mellitus complication status: without complication Qualified Code(s): E11.9 - Type 2 diabetes mellitus without complications Plan: His in-office HgbA1c today is at 6.8% (HgbA1c was at 6.9% back in March 2024) - goal is at least <7.0% but ideally <6.5% Reinforced diabetic diet Continue Metformin 1000 mg BID and Farxiga 5 mg QD (5) COPD (chronic obstructive pulmonary disease): Code(s): J44.9 - Chronic obstructive pulmonary disease, unspecified Category: Medical Qualifiers: COPD type: unspecified COPD Qualified Code(s): J44.9 - Chronic obstructive pulmonary disease, unspecified Plan: Continue Stiolto Respimat 2.5-2.5 mg 2 puffs QD and Albuterol HFA 2 puffs 4 times a day as needed Follow up with pulmonary as scheduled (6) Eczema of lower leg: Code(s): L30.9 - Dermatitis, unspecified Category: Medical Plan: He was previously started on Triamcinolone 0.5% cream BID as he did not experience any improvement with Mometasone 0.1% cream QD previously; Clobetasol 0.05% lotion BID was not approved by his insurance He was referred to dermatology for further evaluation and management - he was finally seen by Dr. Morrison in February 2024 and was diagnosed with nummular eczema and switched over to Fluocinonide 0.05% ointment, which patient states has helped a lot (7) Vitamin D deficiency: Code(s): E55.9 - Vitamin D deficiency, unspecified Category: Medical Plan: Continue Vitamin D3 2000 units QD (8) Sickle cell trait: Code(s): D57.3 - Sickle-cell trait Category: Medical Plan: Patient tested POSITIVE for sickle cell trait when he was sent for sickle cell testing as he's had a few family members test positive recently He has been advised that with sickle cell trait, continuing observation and surveillance is the only recommended course of action with no other interven tions required as there are really no medical conditions or problems associated with sickle cell trait (9) Obesity (BMI 30-39.9): Code(s): E66.9 - Obesity, unspecified Category: Medical Plan: Reinforced diet/exercise as tolerated/lose weight Plan Follow up in 4 months Orders: Orders AMB Hemoglobin A1c 07/09/24 Z13.9 - Encounter for screening, unspecified Hemoglobin A1c 4 Months E11.9 - Type 2 diabetes mellitus without complications Comprehensive [place]. Panel Fast 4 Months E78.00 - Pure hypercholesterolemia, unspecified Lipid Panel 4 Months E78.00 - Pure hypercholesterolemia, unspecified TSH reflex Free T4 4 Months E78.00 - Pure hypercholesterolemia, unspecified Influenza [id number] Immunization 07/09/24 Z23 - Encounter for immunization Complete Blood Count Auto Diff 4 Months D64.9 - Anemia, unspecified Microalbumin, Random (w Creat) 4 Months E11.9 - Type 2 diabetes mellitus without complications
== END 2024-07-09 12:12 | disposition home or self-care (01) ==
PROVIDERS: PCP Internal Medicine; Visit Provider Internal Medicine
DX: Z00.00 Encounter for general adult medical examination without abnormal findings (principal); I25.118 Atherosclerotic heart disease of native coronary artery with other forms of angina pectoris; E11.620 Type 2 diabetes mellitus with diabetic dermatitis; D57.3 Sickle-cell trait; J44.9 Chronic obstructive pulmonary disease, unspecified; E78.00 Pure hypercholesterolemia, unspecified; E66.811 Obesity, class 1; Z68.32 Body mass index [BMI] 32.0-32.9, adult; L30.9 Dermatitis, unspecified; E55.9 Vitamin D deficiency, unspecified

== ENCOUNTER → 2024-07-09 11:17 | Outpatient (BNVA) | payer MEDICARE, SELFPAY | PROVIDERS: PCP Internal Medicine; Visit Provider Internal Medicine | DX: Z00.01 Encounter for general adult medical examination with abnormal findings (principal); I25.118 Atherosclerotic heart disease of native coronary artery with other forms of angina pectoris; E78.00 Pure hypercholesterolemia, unspecified; E11.9 Type 2 diabetes mellitus without complications; J44.9 Chronic obstructive pulmonary disease, unspecified; L30.9 Dermatitis, unspecified; E55.9 Vitamin D deficiency, unspecified; E66.9 Obesity, unspecified; D57.3 Sickle-cell trait | CPT/HCPCS: 83036; 90471; 96127; 99397 ==

== ENCOUNTER 2024-07-22 15:11 | Outpatient (AMB) | payer MEDICARE, SELFPAY ==
[2024-07-22 15:12] VITALS: BP 130/64; PULSE 69; BMI 32.4
--- NOTE | 2024-07-22 15:12 | MHC.OFFVIS ---
Vital Signs 07/22/24 15:12 Height 5 ft 6 in Weight 200 lb 9.93 oz BMI 32.4 BP 130/64 Blood Pressure Location Lt brachial Position Sitting Pulse 69 Pulse Source Pulse Oximeter Intake Visit Reasons: 4 mth f/up labs Intake Note: 4 mth f/up/ labs Checkroom Attendant Required: Yes Checkroom Attendant Language: Manager Access Services: Checkroom Attendant Offered & Declined Checkroom Attendant Name: Cade/Daughter Accompanied by: Daughter Allergies No Known Allergies Allergy (Verified 07/12/24 07:35) Medication List - Last Reconciled 07/22/24 by Reji Harry MD amlodipine 2.5 mg PO DAILY aspirin 81 mg PO DAILY 90 days atorvastatin 80 mg PO BEDTIME 90 days cholecalciferol (vitamin D3) 50 mcg PO DAILY 90 days clopidogrel 75 mg PO DAILY 90 days isosorbide mononitrate ER 30 mg PO DAILY losartan 50 mg PO DAILY metformin 1,000 mg PO BID 90 days metoprolol succinate ER 25 mg PO DAILY spironolactone 25 mg PO DAILY HPI Comments Details: Pleasant 69-year-old gentleman here for follow-up. He was seen at [facility] in the setting on for posterior STEMI. He was taken emergently for cardiac catheterization which revealed severe distal left main stenosis along with ostial left circumflex disease. Replacing her aortic balloon pump which improved his symptoms and ECG changes. He was subsequently sent for urgent bypass surgery and underwent AYALA to LAD and left radial graft to his OM. He had respiratory failure and prolonged hospitalization. He did well afterwards. On last visit he complained of chest tightness similar to be bypassed. He was sent for stress testing which was normal. After due for diagnostic angiogram. This showed patent grafts with [place] coronary disease. Right coronary artery was diffusely disease and was not grafted. We encountered spasm in the radial graft to the OM after engagement. Patient was started on amlodipine after the cath. He returns for f/u today. He is doing well since addition of amlodipine. No side effects. Catheterization report had explained to the patient and . Emanating 2022: He returns for follow-up. It appears he saw us in 2020 and did not sure he was for 2 years. He subsequently came back and was seen by Jessica in our office. He had an echocardiogram which showed EF of 35-40%. He had stress test performed where lateral infarct was noticed. He previously had bypass surgery for left main stenosis with AYALA to LAD and a radial graft to OM. Radial graft was noted to have spasm and he was started on amlodipine previously with good improvement in symptoms. Given cardiomyopathy has been started on medications including metoprolol succinate, Entresto and Farxiga. He is saying that Farxiga and Entresto were very spends a for him and cannot afford them. He also added that he has missed his medications for few days and was getting left-sided pressure-like feeling. This is similar to his anginal pain. 03/18/24: He is here for f/u. He underwent cardiac cath in Oct 2023. AYALA to LAD and SVG to OM were patent. Diffuse moderate disease in the RCA was noted but it did not explain cardiomyopathy and LV dysfunction. He had repeat echo in december 2023- EF 45 to 50% with inferior and inferolateral wall motion abnormalities. EF has improved. Clinically he has been doing well and is denying any SOB and CP. Euvolemic. 07/22/2024: He is here for follow-up. He has had 2 episodes of chest discomfort laying down in bed. He has not had any activity related chest discomfort. He is denying heartburn. Taking medications regularly. [facility] History Cardiomyopathy Vitamin D deficiency Sickle cell trait Obesity (BMI 30-39.9) Eczema of lower leg Overweight (BMI 25.0-29.9) Ex-smoker Pure hypercholesterolemia Diabetes mellitus Coronary artery disease Surgical History H/O colonoscopy History of cardiac cath S/P CABG (coronary artery bypass graft) (~08/2020) Family History Mother Heart problem Diabetes Father Heart problem Diabetes Sister Ovary cancer Other Family history non-contributory Social History Housing: House Alcohol intake: former Patient Tobacco Use Status: Former Tobacco user Tobacco use type: Cigarette e-Cigarette/Vaping Use: Never Used Second Hand Smoke Exposure: Yes service: No Current occupational status: retired Cognitive needs: No Hearing needs: No Vision needs: Yes Review of Systems Const Denies chills, Denies fatigue, Denies fever(s), Denies frequent falls, Denies weakness, Denies weight gain and Denies weight loss ENT Denies dizziness Card Denies chest pain, Denies leg edema, Denies lightheadedness, Denies palpitations, Denies dyspnea and Denies dyspnea on exertion Resp Denies cough, Denies dyspnea and Denies dyspnea on exertion GI Denies hematochezia Musc Denies abnormal gait, Denies muscle weakness, Denies numbness, Denies radiating pain into limb and Denies tingling Neuro Denies abnormal gait, Denies dizziness, Denies frequent falls, Denies numbness, Denies tingling and Denies weakness Endo Denies fatigue and Denies palpitations Physical Exam Vital Signs: Last Vital Signs Pulse 69 07/22/24 15:12 BP 130/64 07/22/24 15:12 BMI result Body Mass Index 32.4 GENERAL APPEARANCE: in no acute distress, pleasant. NECK: no carotid bruit, no jugular venous distention. SKIN: no suspicious lesions, warm and dry. HEART: no murmurs, regular rate and rhythm. LUNGS: clear to auscultation bilaterally. ABDOMEN: soft, nontender. EXTREMITIES: no edema. PERIPHERAL PULSES: equal. NEUROLOGIC: No gross deficits, AAO X 3 Assessment & Plan Assessment & Plan (1) Ischemic cardiomyopathy: Code(s): I25.5 - Ischemic cardiomyopathy Category: Medical (2) Stable angina: Code(s): I20.8 - Other forms of angina pectoris Category: Medical Plan 69 male with ischemic cardiomyopathy. He has stable angina. Patent AYALA and radial graft to OM. EF improving with GDMT. Clinically euvolemic. Increasing Toprol-XL to b.i.d.. Adding omeprazole because I think his symptoms are due to acid reflux. The symptoms happen when he is laying down and do not recur when he is doing activities. He will see us back in few months. Thank you for allowing me to participate in the care of your patient. Please feel free to contact me if you have any questions. Medications: New omeprazole 40 mg PO DAILY 90 caps 3RF Changed From metoprolol succinate ER 25 mg PO DAILY 90 tabs 1RF To metoprolol succinate ER 25 mg PO BID 120 tabs 3RF Coding Level of Care Code Est Pt Level 4 (66918) Diagnoses Ischemic cardiomyopathy I25.5 Stable angina I20.8
== END 2024-07-22 15:30 | disposition home or self-care (01) ==
PROVIDERS: PCP Internal Medicine; Visit Provider Internal Medicine Cardiovascular Disease
DX: I25.5 Ischemic cardiomyopathy (principal); I20.89 Other forms of angina pectoris
CPT/HCPCS: 99214

== ENCOUNTER → 2024-07-22 15:11 | Outpatient (BNVA) | payer MEDICARE, SELFPAY | PROVIDERS: PCP Internal Medicine; Visit Provider Internal Medicine Cardiovascular Disease | DX: I20.89 Other forms of angina pectoris (principal); I25.5 Ischemic cardiomyopathy; I25.2 Old myocardial infarction; Z87.891 Personal history of nicotine dependence | CPT/HCPCS: 99212 ==

== ENCOUNTER 2024-10-28 14:42 | Outpatient (AMB) | payer MEDICARE, SELFPAY ==
[2024-10-28 14:50] VITALS: BP 120/62; PULSE 76; BMI 32.0
--- NOTE | 2024-10-28 14:50 | MHC.OFFVIS ---
Vital Signs 10/28/24 14:50 Height 5 ft 6 in Weight 198 lb 6.656 oz BMI 32.0 BP 120/62 Blood Pressure Location Lt brachial Position Sitting Pulse 76 Pulse Source Monitor Intake Visit Reasons: 3mth f/up Intake Note: 3 mth f/up Assembling Inspector Required: No Assembling Inspector Services: Assembling Inspector Offered & Declined Assembling Inspector Name: benedicto/daughter/japanese Accompanied by: Daughter Allergies No Known Allergies Allergy (Verified 07/12/24 07:35) Medication List - Last Reconciled 10/28/24 by Reji Harry MD amlodipine 2.5 mg PO DAILY aspirin 81 mg PO DAILY 90 days atorvastatin 80 mg PO BEDTIME 90 days cholecalciferol (vitamin D3) 50 mcg PO DAILY 90 days clopidogrel 75 mg PO DAILY 90 days isosorbide mononitrate ER 30 mg PO DAILY losartan 50 mg PO DAILY metformin 1,000 mg PO BID 90 days metoprolol succinate ER 25 mg PO BID omeprazole 40 mg PO DAILY spironolactone 25 mg PO DAILY HPI Comments Details: Pleasant 69-year-old gentleman here for follow-up. He was seen at [facility] in the setting on for posterior STEMI. He was taken emergently for cardiac catheterization which revealed severe distal left main stenosis along with ostial left circumflex disease. Replacing her aortic balloon pump which improved his symptoms and ECG changes. He was subsequently sent for urgent bypass surgery and underwent AYALA to LAD and left radial graft to his OM. He had respiratory failure and prolonged hospitalization. He did well afterwards. On last visit he complained of chest tightness similar to be bypassed. He was sent for stress testing which was normal. After due for diagnostic angiogram. This showed patent grafts with [place] coronary disease. Right coronary artery was diffusely disease and was not grafted. We encountered spasm in the radial graft to the OM after engagement. Patient was started on amlodipine after the cath. He returns for f/u today. He is doing well since addition of amlodipine. No side effects. Catheterization report had explained to the patient and . Emanating 2022: He returns for follow-up. It appears he saw us in 2020 and did not sure he was for 2 years. He subsequently came back and was seen by Jessica in our office. He had an echocardiogram which showed EF of 35-40%. He had stress test performed where lateral infarct was noticed. He previously had bypass surgery for left main stenosis with AYALA to LAD and a radial graft to OM. Radial graft was noted to have spasm and he was started on amlodipine previously with good improvement in symptoms. Given cardiomyopathy has been started on medications including metoprolol succinate, Entresto and Farxiga. He is saying that Farxiga and Entresto were very spends a for him and cannot afford them. He also added that he has missed his medications for few days and was getting left-sided pressure-like feeling. This is similar to his anginal pain. 03/18/24: He is here for f/u. He underwent cardiac cath in Oct 2023. AYALA to LAD and SVG to OM were patent. Diffuse moderate disease in the RCA was noted but it did not explain cardiomyopathy and LV dysfunction. He had repeat echo in december 2023- EF 45 to 50% with inferior and inferolateral wall motion abnormalities. EF has improved. Clinically he has been doing well and is denying any SOB and CP. Euvolemic. 07/22/2024: He is here for follow-up. He has had 2 episodes of chest discomfort laying down in bed. He has not had any activity related chest discomfort. He is denying heartburn. Taking medications regularly. 10/28/2024: Here for follow-up. He is denying any chest discomfort on follow-up. On last visit I gave him PPI because he was getting pain laying down. He said he used it but the pain got worse so he stopped it. He is saying he has not been getting any frequent chest pains at this stage. Blood pressure heart rate everything is well controlled. His last echocardiography has shown EF of 45-50%. Clinically euvolemic. He is asking whether he can use Benadryl for sleep. I have advised him not to use it and try melatonin. PFSH Medical History Cardiomyopathy Vitamin D deficiency Sickle cell trait Obesity (BMI 30-39.9) Eczema of lower leg Overweight (BMI 25.0-29.9) Ex-smoker Pure hypercholesterolemia Diabetes mellitus Coronary artery disease Surgical History H/O colonoscopy History of cardiac cath S/P CABG (coronary artery bypass graft) (~08/2020) Family History Mother Heart problem Diabetes Father Heart problem Diabetes Sister Ovary cancer Other Family history non-contributory Social History (Reviewed 10/28/24 @ 14:53 by Jess Rios [facility]) Housing: House Alcohol intake: former Patient Tobacco Use Status: Former Tobacco user Tobacco use type: Cigarette e-Cigarette/Vaping Use: Never Used Second Hand Smoke Exposure: Yes service: No Current occupational status: retired Cognitive needs: No Hearing needs: No Vision needs: Yes Review of Systems Const Denies chills, Denies fatigue, Denies fever(s), Denies frequent falls, Denies weakness, Denies weight gain and Denies weight loss ENT Denies dizziness Card Denies chest pain, Denies leg edema, Denies lightheadedness, Denies palpitations, Denies dyspnea and Denies dyspnea on exertion Resp Denies cough, Denies dyspnea and Denies dyspnea on exertion GI Denies hematochezia Musc Denies abnormal gait, Denies muscle weakness, Denies numbness, Denies radiating pain into limb and Denies tingling Neuro Denies abnormal gait, Denies dizziness, Denies frequent falls, Denies numbness, Denies tingling and Denies weakness Endo Denies fatigue and Denies palpitations Physical Exam Vital Signs: Last Vital Signs Pulse 76 10/28/24 14:50 BP 120/62 10/28/24 14:50 BMI result Body Mass Index 32.0 GENERAL APPEARANCE: in no acute distress, pleasant. NECK: no carotid bruit, no jugular venous distention. SKIN: no suspicious lesions, warm and dry. HEART: no murmurs, regular rate and rhythm. LUNGS: clear to auscultation bilaterally. ABDOMEN: soft, nontender. EXTREMITIES: no edema. PERIPHERAL PULSES: equal. NEUROLOGIC: No gross deficits, AAO X 3 Office Procedures EKG Details: Sinus rhythm 76 beats per minute, inferior infarct, QTC 418 milliseconds. [id number], Complete Assessment & Plan Assessment & Plan (1) Cardiomyopathy: Code(s): I42.9 - Cardiomyopathy, unspecified Category: Medical Plan Pleasant 69 year gentleman who is here for follow-up. He has known history of coronary disease with previous bypass surgery. He had cardiomyopathy and underwent cardiac catheterization and he has patent AYALA and radial graft to obtuse marginal. His EF is improving with guideline directed medical therapy. Last echocardiography showed EF of 45-50%. He will continue same medications for now. He will see us back in few months. Thank you for allowing me to participate in the care of your patient. Please feel free to contact me if you have any questions. Coding Level of Care Code Est Pt Level 4 (15737) Diagnoses Cardiomyopathy I42.9 CPT Codes EKG - CPT: 93128-[id number], Complete ([id number])
== END 2024-10-28 15:12 | disposition home or self-care (01) ==
PROVIDERS: PCP Internal Medicine; Visit Provider Internal Medicine Cardiovascular Disease
DX: I42.9 Cardiomyopathy, unspecified (principal)
CPT/HCPCS: 93010; 99214

== ENCOUNTER → 2024-10-28 14:42 | Outpatient (BNVA) | payer MEDICARE, SELFPAY | PROVIDERS: PCP Internal Medicine; Visit Provider Internal Medicine Cardiovascular Disease | DX: I42.9 Cardiomyopathy, unspecified (principal) | CPT/HCPCS: 93005; 99212 ==

== ENCOUNTER 2024-10-29 10:48 | Outpatient (REF) | payer MEDICARE, SELFPAY ==
[2024-10-29 11:16] LABS: MANUAL DIFF FLAG NO
[2024-10-29 11:28] LABS: Estimated Average Glucose 151 mg/dL; Hemoglobin A1C 168.8299 umol/L; Hemoglobin A1c % 6.9 % (<6.0); Total Hemoglobin (HGBA1C) 3227.4198 umol/L
[2024-10-29 11:29] LABS: Basophils Percent Auto 0.9 % (0-2); Eosinophils Absolute Auto 0.2 X10*3/uL (0.0-0.4); Hematocrit 37.3 % (42.0-52.0); Hemoglobin 12.7 g/dl (14.0-18.0); Imm Gran Abs Auto 0.01 X10*3/uL (0.00-0.03); Imm Gran Pct Auto 0.2 % (0.0-0.4); Lymphocytes Absolute Auto 1.8 X10*3/uL (1.2-4.9); Lymphocytes Percent Auto 40.3 % (20-40); Mean Corpuscular Hemoglobin 28.7 pg (27.0-33.0); Mean Corpuscular Volume 84.4 fL (80.0-98.0); Mean Platelet Volume 11.3 fL (9.4-12.4); Monocytes Absolute Auto 0.6 X10*3/uL (0.1-1.2); Monocytes Percent Auto 12.3 % (2-11); Neutrophils Absolute Auto 1.9 x10*3/uL (2.0-8.3); Neutrophils Percent Auto 42.3 % (45-73); Platelet Count 129 X10*3/uL (160-400); Red Blood Count 4.42 X10*6/uL (4.60-5.80); Red Cell Distribution Width 14.1 % (11.0-16.0); White Blood Count 4.5 X10*3/uL (4.8-10.8)
[2024-10-29 12:05] LABS: Alanine Aminotransferase 16 U/L (0-40); Albumin Level 4.4 g/dL (3.5-5.0); Alkaline Phosphatase 62 U/L (39-117); Anion Gap 16 (12-20); Aspartate Amino Transferase 34 U/L (5-37); Bilirubin Total 0.6 mg/dL (0.0-1.0); Blood Urea Nitrogen 18 mg/dL (9-16); Carbon Dioxide 21 mmol/L (22-29); Chloride 109 mmol/L (96-108); Cholesterol 103 mg/dL (<200); Estimated Glomerular Filt Rate 54; Glucose Fasting 146 mg/dL (60-99); HDL Cholesterol 28 mg/dL (>40); LDL Cholesterol Calculated 60 mg/dL (<100); Sodium 142 mmol/L (135-145); Triglycerides 77 mg/dL (<150)
[2024-10-29 12:08] LABS: TSH reflex Free T4 1.04 uIU/mL (0.32-4.0)
[2024-10-29 12:40] LABS: Creatinine Urine 170.03 mg/dL; Microalbum/Creatinine Ratio Ur 10.5 ug/mg cr (<30)
== END 2024-10-29 10:49 | disposition home or self-care (01) ==
LOC: HO.LAB 10:48
PROVIDERS: PCP Internal Medicine; Visit Provider Internal Medicine
DX: E78.00 Pure hypercholesterolemia, unspecified (principal); D64.9 Anemia, unspecified; E11.9 Type 2 diabetes mellitus without complications
CPT/HCPCS: 36415; 80053; 80061; 82043; 82570; 83036; 84443; 85025

== ENCOUNTER 2024-11-11 09:35 | Outpatient (AMB) | payer MEDICARE, SELFPAY ==
--- NOTE | 2024-11-11 09:40 | MHC.PC.OV ---
Vital Signs 11/11/24 09:42 Height 5 ft 6 in Weight 202 lb BMI 32.6 BP 110/64 Blood Pressure Location Lt brachial Position Sitting Pulse 66 Pulse Source Pulse Oximeter Pulse Oximetry (%) 98 Oxygen Delivery Method Room Air Intake Visit Reasons: 4 Months f/u Glass Cutter Helper Required: No Accompanied by: Daughter Allergies No Known Allergies Allergy (Verified 11/11/24 10:10) Medication List - Last Reconciled 11/11/24 by Mike Myers MD amlodipine 2.5 mg PO DAILY aspirin 81 mg PO DAILY 90 days atorvastatin 80 mg PO BEDTIME 90 days cholecalciferol (vitamin D3) 50 mcg PO DAILY 90 days clopidogrel 75 mg PO DAILY 90 days isosorbide mononitrate ER 30 mg PO DAILY losartan 50 mg PO DAILY metformin 1,000 mg PO BID 90 days metoprolol succinate ER 25 mg PO BID omeprazole 40 mg PO DAILY spironolactone 25 mg PO DAILY Tobacco use date assessed: 11/11/24 Fall risk assessment: No Falls in past year Last assessed Fall Risk: 11/11/24 Dental Screening Dental Screen Date: 11/11/24 Did you have a dental visit in the last 12 months?: No Did you have a dental problem in the last 6 months where you did not have access to dental care?: No Was dental information given to patient?: No HPI 4 Months f/u HPI Details Patient comes in today for his follow up visit States that he feels okay He denies any headaches or dizziness Denies any chest pains, no SOB No nausea/vomiting, no abdominal pain No change in bowel habits noted Adds that he has been having trouble sleeping at night for a while now States that he started taking some OTC Melatonin 10 mg and that they have been helping with his sleep but he has to take 3 capsules (30 mg) for it to work for him - is wondering how much higher he can safely go on his dosage He had his follow up labs done a couple of weeks ago - to discuss his results [facility] Medical History Insomnia Cardiomyopathy Vitamin D deficiency Sickle cell trait Obesity (BMI 30-39.9) Eczema of lower leg Overweight (BMI 25.0-29.9) Ex-smoker Pure hypercholesterolemia Diabetes mellitus Coronary artery disease Surgical History (Updated 11/11/24 @ 10:23 by Mike Myers MD) H/O colonoscopy History of cardiac cath S/P CABG (coronary artery bypass graft) (~08/2020) Family History Mother Heart problem Diabetes Father Heart problem Diabetes Sister Ovary cancer Other Family history non-contributory Social History Housing: House Alcohol intake: former Patient Tobacco Use Status: Former Tobacco user Tobacco use type: Cigarette e-Cigarette/Vaping Use: Never Used Second Hand Smoke Exposure: Yes service: No Current occupational status: retired Cognitive needs: No Hearing needs: No Vision needs: Yes Questionnaire PHQ-9 Over the last 2 weeks, how often have you been bothered by any of the following problems? 1. Little interest or pleasure in doing things: not at all 2. Feeling down, depressed, or hopeless: not at all 3. Trouble falling or staying asleep, or sleeping too much: several days 4. Feeling tired or having little energy: not at all 5. Poor appetite or overeating: not at all 6. Feeling bad about yourself - or that you are a failure or have let yourself or your family down: not at all 7. Trouble concentrating on things, such as reading the newspaper or watching television: not at all 8. Moving or speaking so slowly that other people could have noticed. Or the opposite - being so fidgety or restless that you have been moving around a lot more than usual: not at all 9. Thoughts that you would be better off or of hurting yourself in some way: not at all Total score: 1 Depression Screening Interpretation: Negative Depression Screening Done: Yes 21757 - PHQ-9 Billing: Yes Source: Developed by Drs. Zachary Winston, Kaylene Rich, Gabe Domínguez and colleagues, with an educational vinita from [employer]. Thrive Questionnaire Date Thrive assessed: 11/11/24 I am a: Patient What is your living situation today?: I have a steady place to live Within the past 12 months, did the food you bought not last and you didn't have the money to get more?: Never true Within the past 12 months, did you worry whether your food would run out before you got money to buy more?: Never true Do you have trouble paying for medicines?: No Do you have trouble getting transportation to medical appointments?: No Do you have trouble paying your heating and electricity bill?: No Do you have trouble taking care of your child, family member or friend?: No Do you have trouble with day-to-day activities such as bathing, preparing meals, shopping, managing finances, etc.?: No Are you currently unemployed and looking for a job?: No Are you interested in more education?: No Please select the resources that you would like help with: None Currently or been in a relationship where the following occur: No concerns reported THRIVE Score: 0 AUDIT C Alcohol Use Questionnaire (AUDIT-C) 1. How often do you have a drink containing alcohol?: Never 3. How often do you have six or more drinks on one occasion?: Never Total Score: 0 Score Reviewed/Action Taken: Yes VALERY-7 AMB Questionnaire VALERY-7 Date VALERY - 7 assessed: 11/11/24 Feeling nervous, anxious, or on edge: 0 = Not at all Not being able to stop or control worryin = Not at all Worrying too much about different things: 0 = Not at all Trouble relaxin = Not at all Being so restless that it is hard to sit still: 0 = Not at all Becoming easily annoyed or irritable: 1 = Several days Feeling afraid as if something awful might happen: 0 = Not at all Total VALERY-7 score (0-4 normal; 5-9 mild; 10-14 moderate; 15-21 severe): 1 Source: Developed by Drs. Zachary Winston, Kaylene Rich, Gabe Domínguez and colleagues, with an educational vinita from [employer]. Review of Systems Const Denies chills, Reports difficulty sleeping (Melatonin is helping - see HPI), Denies fatigue, Denies fever(s) and Denies headache(s) ENT Denies dysphagia, Denies dizziness, Denies otalgia, Denies headache(s), Denies neck pain, Denies odynophagia and Denies sore throat Card Denies chest pain, Denies irregular heart rhythm, Denies palpitations and Denies dyspnea Resp Denies chest congestion, Denies cough and Denies dyspnea GI Denies abdominal pain, Denies constipation, Denies dysphagia, Denies heartburn, Denies diarrhea, Denies nausea, Denies odynophagia and Denies vomiting Denies difficulty urinating, Denies dysuria and Denies urinary frequency Musc Denies back pain, Denies arthralgias and Denies neck pain Skin/Breast Denies rash Neuro Denies dizziness, Denies headache(s) and Denies paresthesias Endo Denies fatigue and Denies palpitations Physical exam (Primary Care) Vital Signs: Last Vital Signs Pulse 66 11/11/24 09:42 BP 110/64 11/11/24 09:42 Pulse Ox 98 11/11/24 09:42 Oxygen Delivery Method Room Air 11/11/24 09:42 BMI result Body Mass Index 32.6 Tobacco/Smoking Status: Tobacco use Status Tobacco use date assessed 11/11/24 11/11/24 09:47 Patient Tobacco Use Status Former Tobacco user 11/11/24 09:41 Tobacco use type Cigarette 11/11/24 09:41 e-Cigarette/Vaping Use Never Used 11/11/24 09:41 PHQ-9: PHQ-9 Score PHQ-9: Total score 1 11/11/24 09:49 Depression Screening Interpretation: Negative Thrive Assessment: Date of Thrive Assessment Date Thrive assessed 11/11/24 11/11/24 09:41 Currently or been in a relationship where the following occur: No concerns reported Const General: no acute distress and alert HENMT Ears: TM's normal bilaterally and EAC's normal Throat: Yes posterior oropharynx normal and Yes tonsils normal (no TP congestion) Neck Neck: Yes supple and No lymphadenopathy Thyroid: Thyroid normal Resp Auscultation: clear to auscultation bilaterally, no rales and no wheezes Cardio Rate: regular rate Rhythm: regular rhythm Heart sounds: no murmurs GI Palpation (GI): Soft to palpation and nontender Auscultation: normal bowel sounds General: Yes no CVA tenderness Back/Spine/Pelvis Back: no CVA tenderness Thoracic/Lumbar Spine: thoracic and lumbar spine normal to inspection Skin Rashes: no rashes Extrem General: Yes no clubbing, cyanosis or edema Results Reviewed Results Reviewed: Laboratory Tests 10/29/24 10/29/24 11:10 11:14 WBC 4.5 L Hgb 12.7 L Hct 37.3 L Plt Count 129 L Sodium 142 Potassium 4.0 Creatinine 1.32 Estimated GFR 54 Fasting Glucose 146 H Hemoglobin A1c % 6.9 H Calcium 10.0 AST 34 ALT 16 Triglycerides 77 Cholesterol 103 LDL Cholesterol, Calc 60 HDL Cholesterol 28 L TSH 1.04 Microalb/Creat Ratio 10.5 Coding Level of Care Code Est Pt Level 4 (65026) Diagnoses Coronary artery disease of [place] artery of [place] heart with stable angina pectoris I25.118 Coronary Disease-Associated Artery/Lesion type: [place] artery [place] vs. transplanted heart: [place] heart Associated angina: with stable angina Pure hypercholesterolemia E78.00 Type 2 diabetes mellitus without complication, without long-term current use of insulin E11.9 Diabetes mellitus type: type 2 Diabetes mellitus long-term insulin use: without long-term use Diabetes mellitus complication status: without complication Chronic obstructive pulmonary disease, unspecified COPD type J44.9 COPD type: unspecified COPD Eczema of lower leg L30.9 Vitamin D deficiency E55.9 Sickle cell trait D57.3 Insomnia, unspecified type G47.00 Insomnia type: unspecified Obesity (BMI 30-39.9) E66.9 Additional Codes PHQ-9 - 01568 - PHQ-9 Billing: Yes ([id number]) Assessment & Plan Assessment & Plan (1) Coronary artery disease: Comment: Status post posterolateral STEMI. He underwent bypass surgery with AYALA to LAD and left radial graft to OM in August 2020. Repeat cardiac catheterization on 01/17/2021 revealed patent grafts with diffuse coronary artery disease - recommend continuing aggressive medical management and risk factor modification Code(s): I25.10 - Atherosclerotic heart disease of [place] coronary artery without angina pectoris Category: Social Hx Qualifiers: Coronary Disease-Associated Artery/Lesion type: [place] artery [place] vs. transplanted heart: [place] heart Associated angina: with stable angina Qualified Code(s): I25.118 - Atherosclerotic heart disease of [place] coronary artery with other forms of angina pectoris Plan: S/P posterolateral STEMI - he had bypass surgery with AYALA to LAD and left radial graft to OM in August 2020 Repeat stress testing was followed by cardiac catheterization due to his complaints of recurrent chest pain & discomfort following his CABG - repeat studies did not show any significant graft disease.? He has severe disease in the [place] coronary arteries and had spasm in the radial graft His symptoms of chest pain and discomfort improved with the addition of Amlodipine by cardiology Echocardiogram done on 03/28/23 revealed moderately decreased left ventricular systolic function with EF between 35 to 40%, with some evidence of wall motion abnormalities but no valvular pathology seen. He had repeat stress testing done in April 2023 - EKG stress test came out normal; nuclear imaging studies showed (+) transmural infarction involving the basal to mid inferolateral/adjacent lateral wall. Gated LVEF is 64% during stress and 48% during rest. Transient ischemic dilatation not present His most recent echocardiogram done on 01/01/2024 revealed (+) mildly reduced LV ejection fraction 45-50% with impaired relaxation filling pattern with underlying regional wall motion abnormality consistent with coronary artery disease. Cardiac valvular dopplers are within normal limits, RV systolic pressure is normal and there are no gross pericardial effusion Continue Clopidogrel 75 mg QD, Aspirin 81 mg QD, Metoprolol ER 25 mg QD and Entresto 24-26 mg BID - Amlodipine was discontinued when patient was started on Entresto He was seen by cardiology for follow up last week and was advised to continue on the same medications with no changes recommended; to continue following up with cardiology as scheduled (2) Pure hypercholesterolemia: Code(s): E78.00 - Pure hypercholesterolemia, unspecified Category: Medical Plan: Results of his labs done a couple of weeks ago reviewed and discussed with patient Reinforced low cholesterol diet Continue Atorvastatin 80 mg QD Will recheck his labs and fasting lipids in 4 months for follow-up (3) Diabetes mellitus: Code(s): E11.9 - Type 2 diabetes mellitus without complications Category: Medical Qualifiers: Diabetes mellitus type: type 2 Diabetes mellitus long-term insulin use: without long-term use Diabetes mellitus complication status: without complication Qualified Code(s): E11.9 - Type 2 diabetes mellitus without complications Plan: His HgbA1c was at 6.9% on his labs done a couple of weeks ago (in-office HgbA1c was previously at 6.8% a few months ago) - goal is at least <7.0% but ideally <6.5% Reinforced diabetic diet Continue Metformin 1000 mg BID and Farxiga 5 mg QD (4) COPD (chronic obstructive pulmonary disease): Code(s): J44.9 - Chronic obstructive pulmonary disease, unspecified Category: Medical Qualifiers: COPD type: unspecified COPD Qualified Code(s): J44.9 - Chronic obstructive pulmonary disease, unspecified Plan: Continue Stiolto Respimat 2.5-2.5 mg 2 puffs QD and Albuterol HFA 2 puffs 4 times a day as needed Follow up with pulmonary as scheduled (5) Eczema of lower leg: Code(s): L30.9 - Dermatitis, unspecified Category: Medical Plan: He was previously started on Triamcinolone 0.5% cream BID as he did not experience any improvement with Mometasone 0.1% cream QD previously; Clobetasol 0.05% lotion BID was not approved by his insurance He was referred to dermatology for further evaluation and management - he was finally seen by Dr. Morrison in February 2024 and was diagnosed with nummular eczema and switched over to Fluocinonide 0.05% ointment, which patient states has been helping (6) Vitamin D deficiency: Code(s): E55.9 - Vitamin D deficiency, unspecified Category: Medical Plan: Continue Vitamin D3 2000 units QD (7) Sickle cell trait: Code(s): D57.3 - Sickle-cell trait Category: Medical Plan: Patient tested POSITIVE for sickle cell trait when he was sent for sickle cell testing as he's had a few family members test positive recently He has been advised that with sickle cell trait, continuing observation and surveillance is the only recommended course of action with no other interventions required as there are really no medical conditions or problems associated with sickle cell trait (8) Insomnia: Code(s): G47.00 - Insomnia, unspecified Category: Medical Qualifiers: Insomnia type: unspecified Qualified Code(s): G47.00 - Insomnia, unspecified Plan: Sleep hygiene discussed Continue Melatonin 10 mg up to 3 capsules Q HS PRN - advised patient that I will try sending in Rx for this but his insurance may or may not agree to cover this; if not, he can continue getting this OTC (9) Obesity (BMI 30-39.9): Code(s): E66.9 - Obesity, unspecified Category: Medical Plan: Reinforced diet/exercise as tolerated/lose weight Plan Follow up in 4 months Orders: Orders Complete Blood Count Auto Diff 4 Months D64.9 - Anemia, unspecified TSH reflex Free T4 4 Months E78.00 - Pure hypercholesterolemia, unspecified UA CC w/rflx Micro + Cult 4 Months R30.0 - Dysuria Hemoglobin A1c 4 Months E11.9 - Type 2 diabetes mellitus without complications Vitamin D 25-OH Total 4 Months E55.9 - Vitamin D deficiency, unspecified Prostate Specific Antigen 4 Months N40.0 - Benign prostatic hyperplasia without lower urinary tract symptoms Comprehensive [place]. Panel Fast 4 Months E78.00 - Pure hypercholesterolemia, unspecified Lipid Panel 4 Months E78.00 - Pure hypercholesterolemia, unspecified Microalbumin, Random (w Creat) 4 Months E11.9 - Type 2 diabetes mellitus without complications Vitamin B12 and Folate 4 Months E53.8 - Deficiency of other specified B group vitamins Medications: New melatonin 30 mg (3 x 10 mg) PO BEDTIME 30 days PRN 90 caps 3RF insomnia
[2024-11-11 09:42] VITALS: BP 110/64; PULSE 66; O2SAT 98; BMI 32.6
== END 2024-11-11 10:27 | disposition home or self-care (01) ==
PROVIDERS: PCP Internal Medicine; Visit Provider Internal Medicine
DX: E11.620 Type 2 diabetes mellitus with diabetic dermatitis (principal); J44.9 Chronic obstructive pulmonary disease, unspecified; I25.118 Atherosclerotic heart disease of native coronary artery with other forms of angina pectoris; D57.3 Sickle-cell trait; E66.9 Obesity, unspecified; Z68.32 Body mass index [BMI] 32.0-32.9, adult; L30.9 Dermatitis, unspecified; E78.00 Pure hypercholesterolemia, unspecified; E55.9 Vitamin D deficiency, unspecified; G47.00 Insomnia, unspecified

== ENCOUNTER → 2024-11-11 09:35 | Outpatient (BNVA) | payer MEDICARE, SELFPAY | PROVIDERS: PCP Internal Medicine; Visit Provider Internal Medicine | DX: I25.118 Atherosclerotic heart disease of native coronary artery with other forms of angina pectoris (principal); E78.00 Pure hypercholesterolemia, unspecified; E11.9 Type 2 diabetes mellitus without complications; J44.9 Chronic obstructive pulmonary disease, unspecified; L30.9 Dermatitis, unspecified; E55.9 Vitamin D deficiency, unspecified; D57.3 Sickle-cell trait; G47.00 Insomnia, unspecified; E66.9 Obesity, unspecified | CPT/HCPCS: 96127; 99212 ==

== ENCOUNTER 2025-03-22 09:09 | Outpatient (REF) | payer MEDICARE, SELFPAY ==
[2025-03-22 09:27] LABS: MANUAL DIFF FLAG NO
[2025-03-22 09:32] LABS: Basophils Absolute Auto 0.1 X10*3/uL (0.0-0.2); Eosinophils Absolute Auto 0.2 X10*3/uL (0.0-0.4); Eosinophils Percent Auto 3.1 % (0-4); Hematocrit 37.6 % (42.0-52.0); Hemoglobin 12.5 g/dl (14.0-18.0); Imm Gran Abs Auto 0.02 X10*3/uL (0.00-0.03); Imm Gran Pct Auto 0.3 % (0.0-0.4); Lymphocytes Absolute Auto 2.5 X10*3/uL (1.2-4.9); Lymphocytes Percent Auto 41.4 % (20-40); Mean Corpuscular HGB Conc 33.2 g/dl (31.0-36.0); Mean Corpuscular Volume 87.2 fL (80.0-98.0); Mean Platelet Volume 11.2 fL (9.4-12.4); Monocytes Absolute Auto 0.4 X10*3/uL (0.1-1.2); Monocytes Percent Auto 6.7 % (2-11); Neutrophils Absolute Auto 2.9 x10*3/uL (2.0-8.3); Neutrophils Percent Auto 47.5 % (45-73); Platelet Count 156 X10*3/uL (160-400); Red Blood Count 4.31 X10*6/uL (4.60-5.80); Red Cell Distribution Width 14.1 % (11.0-16.0); White Blood Count 6.1 X10*3/uL (4.8-10.8)
[2025-03-22 09:38] LABS: Estimated Average Glucose 148 mg/dL; Hemoglobin A1c % 6.8 % (<6.0)
[2025-03-22 10:10] LABS: Alanine Aminotransferase 24 U/L (0-40); Albumin Level 4.6 g/dL (3.5-5.0); Alkaline Phosphatase 63 U/L (39-117); Anion Gap 14 (12-20); Aspartate Amino Transferase 34 U/L (5-37); Bilirubin Total 0.5 mg/dL (0.0-1.0); Blood Urea Nitrogen 18 mg/dL (9-16); Calcium 10.1 mg/dL (8.4-10.2); Carbon Dioxide 23 mmol/L (22-29); Chloride 110 mmol/L (96-108); Cholesterol 101 mg/dL (<200); Estimated Glomerular Filt Rate > 60; Glucose Fasting 131 mg/dL (60-99); HDL Cholesterol 34 mg/dL (>40); LDL Cholesterol Calculated 55 mg/dL (<100); Potassium 4.3 mmol/L (3.3-5.1); Sodium 143 mmol/L (135-145); Total Protein 7.4 g/dL (6.5-8.0); Triglycerides 60 mg/dL (<150)
[2025-03-22 10:27] LABS: TSH reflex Free T4 1.46 uIU/mL (0.32-4.0); Vitamin D 25-OH Total 64.1 ng/mL (>30)
[2025-03-22 10:39] LABS: Folate 9.3 ng/mL (> or = 4.0); Prostate Specific Antigen 1.58 ng/mL (<0.05-4.0); Vitamin B12 200 pg/mL (200-900)
[2025-03-22 10:51] LABS: Appearance Urine Clear; Color Urine Yellow; Glucose Urine UA Negative (Negative); Leukocyte Esterase Urine Negative (Negative); Nitrite Urine Negative (Negative); Specific Gravity - Urine 1.015 (1.005-1.025); Urine Blood Negative (Negative); Urine Ketones Trace mg/dL (Negative); Urine Protein Negative (Neg-Trace)
[2025-03-22 12:01] LABS: Creatinine Urine 147.93 mg/dL; Microalbum/Creatinine Ratio Ur 8.7 ug/mg cr (<30)
== END 2025-03-22 09:10 | disposition home or self-care (01) ==
LOC: HO.LAB 09:09
PROVIDERS: PCP Internal Medicine; Visit Provider Internal Medicine
DX: D64.9 Anemia, unspecified (principal); E11.9 Type 2 diabetes mellitus without complications; N40.0 Benign prostatic hyperplasia without lower urinary tract symptoms; E78.00 Pure hypercholesterolemia, unspecified; R30.0 Dysuria; E55.9 Vitamin D deficiency, unspecified; E53.8 Deficiency of other specified B group vitamins; Z12.5 Encounter for screening for malignant neoplasm of prostate
CPT/HCPCS: 36415; 80053; 80061; 81003; 82043; 82306; 82570; 82607; 82746; 83036; 84153; 84443; 85025

== ENCOUNTER 2025-04-06 09:43 | Outpatient (AMB) | payer MEDICARE, SELFPAY ==
--- NOTE | 2025-04-06 09:46 | MHC.PC.OV ---
Vital Signs 04/06/25 09:47 Height 5 ft 6 in Weight 198 lb 6 oz BMI 32.0 BP 116/70 Blood Pressure Location Lt brachial Position Sitting Pulse 64 Pulse Source Pulse Oximeter Pulse Oximetry (%) 96 Oxygen Delivery Method Room Air Intake Visit Reasons: 4 month f/u - see comments Product Marketing Director Required: No Accompanied by: Self / Same As Patient Allergies No Known Allergies Allergy (Verified 04/06/25 10:16) Medication List - Last Reconciled 04/06/25 by Mike Myers MD amlodipine 2.5 mg PO DAILY aspirin 81 mg PO DAILY 90 days atorvastatin 80 mg PO BEDTIME 90 days cholecalciferol (vitamin D3) 50 mcg PO DAILY 90 days clopidogrel 75 mg PO DAILY 90 days isosorbide mononitrate ER 30 mg PO DAILY losartan 50 mg PO DAILY melatonin 30 mg (3 x 10 mg) PO BEDTIME PRN 30 days metformin 1,000 mg PO BID 90 days metoprolol succinate ER 25 mg PO BID omeprazole 40 mg PO DAILY spironolactone 25 mg PO DAILY Tobacco use date assessed: 04/06/25 Fall risk assessment: No Falls in past year Last assessed Fall Risk: 04/06/25 Dental Screening Dental Screen Date: 04/06/25 Did you have a dental visit in the last 12 months?: No Did you have a dental problem in the last 6 months where you did not have access to dental care?: No Was dental information given to patient?: Patient has dentist HPI 4 month f/u - see comments HPI Details Patient comes in today for his follow up visit States that he feels okay but he is again having trouble sleeping at night for a while now and that Melatonin is no longer helping him with his sleep Adds that he's had some on and off swelling over the left side of his neck for a while now but he has not mentioned that to us until now as the swelling tends to be absent whenever he is here for his appointments in the past States that the swelling comes and goes and he has no pain or any other related symptoms over the left side of his neck when it occurs He denies any headaches or dizziness Denies any chest pains, no SOB No nausea/vomiting, no abdominal pain No change in bowel habits noted He had his follow up labs done a couple of weeks ago - to discuss his results [facility] Medical History Insomnia Cardiomyopathy Vitamin D deficiency Sickle cell trait Obesity (BMI 30-39.9) Eczema of lower leg Overweight (BMI 25.0-29.9) Ex-smoker Pure hypercholesterolemia Diabetes mellitus Coronary artery disease Surgical History H/O colonoscopy History of cardiac cath S/P CABG (coronary artery bypass graft) (~08/2020) Family History Mother Heart problem Diabetes Father Heart problem Diabetes Sister Ovary cancer Other Family history non-contributory Social History Housing: House Alcohol intake: former Patient Tobacco Use Status: Former Tobacco user Tobacco use type: Cigarette e-Cigarette/Vaping Use: Never Used Second Hand Smoke Exposure: Yes service: No Current occupational status: retired Cognitive needs: No Hearing needs: No Vision needs: Yes Questionnaire PHQ-9 Over the last 2 weeks, how often have you been bothered by any of the following problems? 1. Little interest or pleasure in doing things: several days 2. Feeling down, depressed, or hopeless: not at all 3. Trouble falling or staying asleep, or sleeping too much: nearly every day 4. Feeling tired or having little energy: not at all 5. Poor appetite or overeating: not at all 6. Feeling bad about yourself - or that you are a failure or have let yourself or your family down: not at all 7. Trouble concentrating on things, such as reading the newspaper or watching television: not at all 8. Moving or speaking so slowly that other people could have noticed. Or the opposite - being so fidgety or restless that you have been moving around a lot more than usual: not at all 9. Thoughts that you would be better off or of hurting yourself in some way: not at all Total score: 4 Depression Screening Interpretation: Negative (issues are mostly related to his trouble sleeping at night) Depression Screening Done: Yes 81369 - PHQ-9 Billing: Yes Source: Developed by Drs. Zachary Winston, Kaylene Rich, Gabe Domínguez and colleagues, with an educational vinita from [employer]. Thrive Questionnaire Date Thrive assessed: 04/06/25 I am a: Patient What is your living situation today?: I have a steady place to live Within the past 12 months, did the food you bought not last and you didn't have the money to get more?: Never true Within the past 12 months, did you worry whether your food would run out before you got money to buy more?: Never true Do you have trouble paying for medicines?: No Do you have trouble getting transportation to medical appointments?: No Do you have trouble paying your heating and electricity bill?: No Do you have trouble taking care of your child, family member or friend?: No Do you have trouble with day-to-day activities such as bathing, preparing meals, shopping, managing finances, etc.?: No Are you currently unemployed and looking for a job?: No Are you interested in more education?: No Please select the resources that you would like help with: None Currently or been in a relationship where the following occur: No concerns reported THRIVE Score: 0 AUDIT C Alcohol Use Questionnaire (AUDIT-C) 1. How often do you have a drink containing alcohol?: Never 3. How often do you have six or more drinks on one occasion?: Never Total Score: 0 Score Reviewed/Action Taken: Yes VALERY-7 AMB Questionnaire VALERY-7 Date VALERY - 7 assessed: 04/06/25 Feeling nervous, anxious, or on edge: 0 = Not at all Not being able to stop or control worryin = Not at all Worrying too much about different things: 0 = Not at all Trouble relaxin = Not at all Being so restless that it is hard to sit still: 0 = Not at all Becoming easily annoyed or irritable: 1 = Several days Feeling afraid as if something awful might happen: 0 = Not at all Total VALERY-7 score (0-4 normal; 5-9 mild; 10-14 moderate; 15-21 severe): 1 Source: Developed by Drs. Zachary Winston, Kaylene Rich, Gabe Domínguez and colleagues, with an educational vinita from [employer]. Review of Systems Const Denies chills, Reports difficulty sleeping (Melatonin used to help but not lately ), Denies fatigue, Denies fever(s) and Denies headache(s) ENT Details: (+) non-tender swelling/mass over the left supraclavicular area Denies dysphagia, Denies dizziness, Denies otalgia, Denies headache(s), Denies neck pain, Denies odynophagia and Denies sore throat Card Denies chest pain, Denies irregular heart rhythm, Denies palpitations and Denies dyspnea Resp Denies chest congestion, Denies cough and Denies dyspnea GI Denies abdominal pain, Denies constipation, Denies dysphagia, Denies heartburn, Denies diarrhea, Denies nausea, Denies odynophagia and Denies vomiting Denies difficulty urinating, Denies dysuria and Denies urinary frequency Musc Denies back pain, Denies arthralgias and Denies neck pain Skin/Breast Denies rash Neuro Denies dizziness, Denies headache(s) and Denies paresthesias Endo Denies fatigue and Denies palpitations Physical exam (Primary Care) Vital Signs: Last Vital Signs Pulse 64 04/06/25 09:47 BP 116/70 04/06/25 09:47 Pulse Ox 96 04/06/25 09:47 Oxygen Delivery Method Room Air 04/06/25 09:47 BMI result Body Mass Index 32.0 Tobacco/Smoking Status: Tobacco use Status Tobacco use date assessed 04/06/25 04/06/25 09:52 Patient Tobacco Use Status Former Tobacco user 04/06/25 09:52 Tobacco use type Cigarette 04/06/25 09:52 e-Cigarette/Vaping Use Never Used 04/06/25 09:52 PHQ-9: PHQ-9 Score PHQ-9: Total score 4 04/06/25 09:52 Depression Screening Interpretation: Negative (issues are mostly related to his trouble sleeping at night) Thrive Assessment: Date of Thrive Assessment Date Thrive assessed 04/06/25 04/06/25 09:52 Currently or been in a relationship where the following occur: No concerns reported Const General: no acute distress and alert HENMT Ears: TM's normal bilaterally and EAC's normal Throat: Yes posterior oropharynx normal and Yes tonsils normal (no TP congestion) Neck Other: (+) non-tender, soft, cystic lesion/mass over the left supraclavicular area Neck: Yes supple and No lymphadenopathy Thyroid: Thyroid normal Resp Auscultation: clear to auscultation bilaterally, no rales and no wheezes Cardio Rate: regular rate Rhythm: regular rhythm Heart sounds: no murmurs GI Palpation (GI): Soft to palpation and nontender Auscultation: normal bowel sounds General: Yes no CVA tenderness Back/Spine/Pelvis Back: no CVA tenderness Thoracic/Lumbar Spine: thoracic and lumbar spine normal to inspection Skin Rashes: no rashes Extrem General: Yes no clubbing, cyanosis or edema Results Reviewed Results Reviewed: Laboratory Tests 03/22/25 03/22/25 09:19 09:25 WBC 6.1 Hgb 12.5 L Hct 37.6 L Plt Count 156 L Sodium 143 Potassium 4.3 Creatinine 1.12 Fasting Glucose 131 H Hemoglobin A1c % 6.8 H Calcium 10.1 AST 34 ALT 24 Alkaline Phosphatase 63 Triglycerides 60 Cholesterol 101 LDL Cholesterol, Calc 55 HDL Cholesterol 34 L Prostate Specific Ag 1.58 Vitamin B12 200 25-OH Vitamin D Total 64.1 TSH 1.46 Ur Specific [place] 1.015 Urine Protein Negative Urine Glucose (UA) Negative Urine Blood Negative Urine Nitrite Negative Ur Leukocyte Esterase Negative Microalb/Creat Ratio 8.7 Coding Level of Care Code Est Pt Level 4 (61723) Complex EM visit Add On G2211 Diagnoses Coronary artery disease of [place] artery of [place] heart with stable angina pectoris I25.118 Coronary Disease-Associated Artery/Lesion type: [place] artery [place] vs. transplanted heart: [place] heart Associated angina: with stable angina Pure hypercholesterolemia E78.00 Type 2 diabetes mellitus without complication, without long-term current use of insulin E11.9 Diabetes mellitus type: type 2 Diabetes mellitus usp insulin use: without usp use Diabetes mellitus complication status: without complication Chronic obstructive pulmonary disease, unspecified COPD type J44.9 COPD type: unspecified COPD Supraclavicular mass R22.2 Eczema of lower leg L30.9 Vitamin D deficiency E55.9 Sickle cell trait D57.3 Insomnia, unspecified type G47.00 Insomnia type: unspecified Obesity (BMI 30-39.9) E66.9 Additional Codes PHQ-9 - 94779 - PHQ-9 Billing: Yes ([id number]) Assessment & Plan Assessment & Plan (1) Coronary artery disease: Comment: Status post posterolateral STEMI. He underwent bypass surgery with AYALA to LAD and left radial graft to OM in August 2020. Repeat cardiac catheterization on 01/17/2021 revealed patent grafts with diffuse coronary artery disease - recommend continuing aggressive medical management and risk factor modification Code(s): I25.10 - Atherosclerotic heart disease of [place] coronary artery without angina pectoris Category: Social Hx Qualifiers: Coronary Disease-Associated Artery/Lesion type: [place] artery [place] vs. transplanted heart: [place] heart Associated angina: with stable angina Qualified Code(s): I25.118 - Atherosclerotic heart disease of [place] coronary artery with other forms of angina pectoris Plan: S/P posterolateral STEMI - he had bypass surgery with AYALA to LAD and left radial graft to OM in August 2020 Repeat stress testing was followed by cardiac catheterization due to his complaints of recurrent chest pain & discomfort following his CABG - repeat studies did not show any significant graft disease.? He has severe disease in the [place] coronary arteries and had spasm in the radial graft His symptoms of chest pain and discomfort improved with the addition of Amlodipine by cardiology Echocardiogram done on 03/28/23 revealed moderately decreased left ventricular systolic function with EF between 35 to 40%, with some evidence of wall motion abnormalities but no valvular pathology seen. He had repeat stress testing done in April 2023 - EKG stress test came out normal; nuclear imaging studies showed (+) transmural infarction involving the basal to mid inferolateral/adjacent lateral wall. Gated LVEF is 64% during stress and 48% during rest. Transient ischemic dilatation not present His most recent echocardiogram done on 01/01/2024 revealed (+) mildly reduced LV ejection fraction 45-50% with impaired relaxation filling pattern with underlying regional wall motion abnormality consistent with coronary artery disease. Cardiac valvular dopplers are within normal limits, RV systolic pressure is normal and there are no gross pericardial effusion Continue Clopidogrel 75 mg QD, Aspirin 81 mg QD, Metoprolol ER 25 mg QD and Entresto 24-26 mg BID - Amlodipine was discontinued when patient was started on Entresto Follow up with cardiology as scheduled (2) Pure hypercholesterolemia: Code(s): E78.00 - Pure hypercholesterolemia, unspecified Category: Medical Plan: Results of his labs done a couple of weeks ago reviewed and discussed with patient Reinforced low cholesterol diet Continue Atorvastatin 80 mg QD Will recheck his labs and fasting lipids in 4 months for follow-up (3) Diabetes mellitus: Code(s): E11.9 - Type 2 diabetes mellitus without complications Category: Medical Qualifiers: Diabetes mellitus type: type 2 Diabetes mellitus usp insulin use: without terminal make up operator use Diabetes mellitus complication status: without complication Qualified Code(s): E11.9 - Type 2 diabetes mellitus without complications Plan: His HgbA1c was at 6.8% on his labs done a couple of weeks ago (was previously at 6.9% a few months ago) - goal is at least <7.0% but ideally <6.5% Reinforced diabetic diet Continue Metformin 1000 mg BID and Farxiga 5 mg QD (4) COPD (chronic obstructive pulmonary disease): Code(s): J44.9 - Chronic obstructive pulmonary disease, unspecified Category: Medical Qualifiers: COPD type: unspecified COPD Qualified Code(s): J44.9 - Chronic obstructive pulmonary disease, unspecified Plan: Continue Stiolto Respimat 2.5-2.5 mg 2 puffs QD and Albuterol HFA 2 puffs 4 times a day as needed Follow up with pulmonary as scheduled (5) Supraclavicular mass: Code(s): R22.2 - Localized swelling, mass and lump, trunk Category: Medical Plan: Will send patient for soft tissue US of the neck JACQUELINE for further evaluation (6) Eczema of lower leg: Code(s): L30.9 - Dermatitis, unspecified Category: Medical Plan: Continue Fluocinonide 0.05% ointment PRN Follow up with dermatology (Dr. Morrison) as scheduled or as needed (7) Vitamin D deficiency: Code(s): E55.9 - Vitamin D deficiency, unspecified Category: Medical Plan: Continue Vitamin D3 2000 units QD (8) Sickle cell trait: Code(s): D57.3 - Sickle-cell trait Category: Medical Plan: Patient tested POSITIVE for sickle cell trait when he was sent for sickle cell testing as he's had a few family members test positive recently He has been advised that with sickle cell trait, continuing observation and surveillance is the only recommended course of action with no other interventions required as there are really no medical conditions or problems associated with sickle cell trait (9) Insomnia: Code(s): G47.00 - Insomnia, unspecified Category: Medical Qualifiers: Insomnia type: unspecified Qualified Code(s): G47.00 - Insomnia, unspecified Plan: Sleep hygiene reinforced He was taking Melatonin 10 mg up to 3 capsules Q HS PRN in the past, which patient states helped before but it is no longer effective Will start patient on a trial of Trazodone 50 mg Q HS PRN (10) Obesity (BMI 30-39.9): Code(s): E66.9 - Obesity, unspecified Category: Medical Plan: Reinforced diet/exercise as tolerated/lose weight Plan To return as scheduled in 4 months for his next annual physical examination Orders: Orders Comprehensive [place]. Panel Fast 07/07/25 E78.00 - Pure hypercholesterolemia, unspecified, Z00.00 - Encounter for general adult medical examination without abnormal findings Lipid Panel 07/07/25 E78.00 - Pure hypercholesterolemia, unspecified, Z00.00 - Encounter for general adult medical examination without abnormal findings UA CC w/rflx Micro + Cult 07/07/25 R30.0 - Dysuria, Z00.00 - Encounter for general adult medical examination without abnormal findings Vitamin D 25-OH Total 07/07/25 E55.9 - Vitamin D deficiency, unspecified, Z00.00 - Encounter for general adult medical examination without abnormal findings US soft tiss head and/or neck Today R22.2 - Localized swelling, mass and lump, trunk Complete Blood Count Auto Diff 07/07/25 D64.9 - Anemia, unspecified, Z00.00 - Encounter for general adult medical examination without abnormal findings TSH reflex Free T4 07/07/25 E78.00 - Pure hypercholesterolemia, unspecified, Z00.00 - Encounter for general adult medical examination without abnormal findings Medications: New trazodone 50 mg PO BEDTIME PRN 30 tabs 3RF sleep/insomnia 30 days Discontinued melatonin Discontinued Reason: Doctor's Order 30 mg (3 x 10 mg) PO BEDTIME 30 days PRN 90 caps 3RF insomnia
[2025-04-06 09:47] VITALS: BP 116/70; PULSE 64; O2SAT 96; BMI 32.0
== END 2025-04-06 10:28 | disposition home or self-care (01) ==
LOC: HO.HMCH 09:44
PROVIDERS: PCP Internal Medicine; Visit Provider Internal Medicine
DX: E11.620 Type 2 diabetes mellitus with diabetic dermatitis (principal); J44.9 Chronic obstructive pulmonary disease, unspecified; E66.9 Obesity, unspecified; Z68.32 Body mass index [BMI] 32.0-32.9, adult; I25.118 Atherosclerotic heart disease of native coronary artery with other forms of angina pectoris; E78.00 Pure hypercholesterolemia, unspecified; R22.2 Localized swelling, mass and lump, trunk; L30.9 Dermatitis, unspecified; E55.9 Vitamin D deficiency, unspecified; D57.3 Sickle-cell trait; G47.00 Insomnia, unspecified

== ENCOUNTER → 2025-04-06 09:43 | Outpatient (BNVA) | payer MEDICARE, SELFPAY | PROVIDERS: PCP Internal Medicine; Visit Provider Internal Medicine | DX: I25.118 Atherosclerotic heart disease of native coronary artery with other forms of angina pectoris (principal); E78.00 Pure hypercholesterolemia, unspecified; E11.9 Type 2 diabetes mellitus without complications; J44.9 Chronic obstructive pulmonary disease, unspecified; R22.2 Localized swelling, mass and lump, trunk; E55.9 Vitamin D deficiency, unspecified; D57.3 Sickle-cell trait; L30.9 Dermatitis, unspecified; G47.00 Insomnia, unspecified; E66.9 Obesity, unspecified; Z68.32 Body mass index [BMI] 32.0-32.9, adult; Z71.3 Dietary counseling and surveillance | CPT/HCPCS: 96127; 99212 ==

== ENCOUNTER 2025-04-07 08:42 | Outpatient (AMB) | payer MEDICARE, SELFPAY ==
--- NOTE | 2025-04-07 09:06 | MHC.OFFVIS ---
Vital Signs 04/07/25 09:08 Height 5 ft 6 in Weight 198 lb 13.711 oz BMI 32.1 BP 100/60 Blood Pressure Location Lt brachial Position Sitting Pulse 78 Pulse Source Pulse Oximeter Intake Visit Reasons: r/s 4 mth f/up Intake Note: 4 mth f/up Telecommunications Field Engineer Required: Yes Telecommunications Field Engineer Language: Wet Process Assistant Head Miller Name: [id number] Accompanied by: Self / Same As Patient Allergies No Known Allergies Allergy (Verified 04/06/25 10:16) Medication List - Last Reconciled 04/07/25 by Reji Harry MD amlodipine 2.5 mg PO DAILY aspirin 81 mg PO DAILY 90 days atorvastatin 80 mg PO BEDTIME 90 days cholecalciferol (vitamin D3) 50 mcg PO DAILY 90 days clopidogrel 75 mg PO DAILY 90 days isosorbide mononitrate ER 30 mg PO DAILY losartan 50 mg PO DAILY metformin 1,000 mg PO BID 90 days metoprolol succinate ER 25 mg PO BID omeprazole 40 mg PO DAILY spironolactone 25 mg PO DAILY trazodone 50 mg PO BEDTIME PRN 30 days HPI Comments Details: Pleasant 70-year-old gentleman here for follow-up. He was seen at [facility] in the setting on for posterior STEMI. He was taken emergently for cardiac catheterization which revealed severe distal left main stenosis along with ostial left circumflex disease. Replacing her aortic balloon pump which improved his symptoms and ECG changes. He was subsequently sent for urgent bypass surgery and underwent AYALA to LAD and left radial graft to his OM. He had respiratory failure and prolonged hospitalization. He did well afterwards. On last visit he complained of chest tightness similar to be bypassed. He was sent for stress testing which was normal. After due for diagnostic angiogram. This showed patent grafts with [place] coronary disease. Right coronary artery was diffusely disease and was not grafted. We encountered spasm in the radial graft to the OM after engagement. Patient was started on amlodipine after the cath. He returns for f/u today. He is doing well since addition of amlodipine. No side effects. Catheterization report had explained to the patient and . Emanating 2022: He returns for follow-up. It appears he saw us in 2020 and did not sure he was for 2 years. He subsequently came back and was seen by Jessica in our office. He had an echocardiogram which showed EF of 35-40%. He had stress test performed where lateral infarct was noticed. He previously had bypass surgery for left main stenosis with AYALA to LAD and a radial graft to OM. Radial graft was noted to have spasm and he was started on amlodipine previously with good improvement in symptoms. Given cardiomyopathy has been started on medications including metoprolol succinate, Entresto and Farxiga. He is saying that Farxiga and Entresto were very spends a for him and cannot afford them. He also added that he has missed his medications for few days and was getting left-sided pressure-like feeling. This is similar to his anginal pain. 03/18/24: He is here for f/u. He underwent cardiac cath in Oct 2023. AYALA to LAD and SVG to OM were patent. Diffuse moderate disease in the RCA was noted but it did not explain cardiomyopathy and LV dysfunction. He had repeat echo in december 2023- EF 45 to 50% with inferior and inferolateral wall motion abnormalities. EF has improved. Clinically he has been doing well and is denying any SOB and CP. Euvolemic. 07/22/2024: He is here for follow-up. He has had 2 episodes of chest discomfort laying down in bed. He has not had any activity related chest discomfort. He is denying heartburn. Taking medications regularly. 10/28/2024: Here for follow-up. He is denying any chest discomfort on follow-up. On last visit I gave him PPI because he was getting pain laying down. He said he used it but the pain got worse so he stopped it. He is saying he has not been getting any frequent chest pains at this stage. Blood pressure heart rate everything is well controlled. His last echocardiography has shown EF of 45-50%. Clinically euvolemic. He is asking whether he can use Benadryl for sleep. I have advised him not to use it and try melatonin. 04/07/2025: Here for follow-up. Denying chest discomfort shortness of breath. Blood pressure is low on follow-up but he has no symptoms. He is taking medications regularly. He is currently on aspirin and Plavix. No bleeding issues. [facility] History Insomnia Cardiomyopathy Vitamin D deficiency Sickle cell trait Obesity (BMI 30-39.9) Eczema of lower leg Overweight (BMI 25.0-29.9) Ex-smoker Pure hypercholesterolemia Diabetes mellitus Coronary artery disease Surgical History H/O colonoscopy History of cardiac cath S/P CABG (coronary artery bypass graft) (~08/2020) Family History Mother Heart problem Diabetes Father Heart problem Diabetes Sister Ovary cancer Other Family history non-contributory Social History Housing: House Alcohol intake: former Patient Tobacco Use Status: Former Tobacco user Tobacco use type: Cigarette e-Cigarette/Vaping Use: Never Used Second Hand Smoke Exposure: Yes service: No Current occupational status: retired Cognitive needs: No Hearing needs: No Vision needs: Yes Review of Systems Const Denies chills, Denies fatigue, Denies fever(s), Denies frequent falls, Denies weakness, Denies weight gain and Denies weight loss ENT Denies dizziness Card Denies chest pain, Denies leg edema, Denies lightheadedness, Denies palpitations, Denies dyspnea and Denies dyspnea on exertion Resp Denies cough, Denies dyspnea and Denies dyspnea on exertion GI Denies hematochezia Musc Denies abnormal gait, Denies muscle weakness, Denies numbness, Denies radiating pain into limb and Denies tingling Neuro Denies abnormal gait, Denies dizziness, Denies frequent falls, Denies numbness, Denies tingling and Denies weakness Endo Denies fatigue and Denies palpitations Physical Exam Vital Signs: Last Vital Signs Pulse 78 04/07/25 09:08 BP 100/60 04/07/25 09:08 BMI result Body Mass Index 32.1 GENERAL APPEARANCE: in no acute distress, pleasant. NECK: no carotid bruit, no jugular venous distention. SKIN: no suspicious lesions, warm and dry. HEART: no murmurs, regular rate and rhythm. LUNGS: clear to auscultation bilaterally. ABDOMEN: soft, nontender. EXTREMITIES: no edema. PERIPHERAL PULSES: equal. NEUROLOGIC: No gross deficits, AAO X 3 Assessment & Plan Assessment & Plan (1) Ischemic cardiomyopathy: Code(s): I25.5 - Ischemic cardiomyopathy Category: Medical (2) Coronary artery disease: Comment: Status post posterolateral STEMI. He underwent bypass surgery with AYALA to LAD and left radial graft to OM in August 2020. Repeat cardiac catheterization on 01/17/2021 revealed patent grafts with diffuse coronary artery disease - recommend continuing aggressive medical management and risk factor modification Code(s): I25.10 - Atherosclerotic heart disease of [place] coronary artery without angina pectoris Category: Social Hx Qualifiers: Associated angina: with stable angina Coronary Disease-Associated Artery/Lesion type: [place] artery [place] vs. transplanted heart: [place] heart Qualified Code(s): I25.118 - Atherosclerotic heart disease of [place] coronary artery with other forms of angina pectoris (3) S/P CABG (coronary artery bypass graft): Onset Date: ~08/2020 Code(s): Z95.1 - Presence of aortocoronary bypass graft Category: Surgical Plan 70-year-old gentleman presenting for follow-up. He has known history of coronary disease with previous bypass surgery. Clinically stable and has no anginal symptoms. Blood pressure is low but he is asymptomatic. I have advised him to increase his fluid intake. If he had any dizziness or lightheadedness he will report to us. If he gets any symptoms then amlodipine can be discontinued. EF is 45-50% based on previous echocardiography. Clinically euvolemic. He is on aspirin and Plavix. I have advised him to stop the aspirin and continue Plavix monotherapy. Thank you for allowing me to participate in the care of your patient. Please feel free to contact me if you have any questions. Medications: Discontinued aspirin Discontinued Reason: Doctor's Order 81 mg PO DAILY 90 days 90 tabs 3RF I25.118 - Atherosclerotic heart disease of [place] coronary artery with other forms of angina pectoris Coding Level of Care Code Est Pt Level 4 (30031) Diagnoses Ischemic cardiomyopathy I25.5 Coronary artery disease of [place] artery of [place] heart with stable angina pectoris I25.118 Associated angina: with stable angina Coronary Disease-Associated Artery/Lesion type: [place] artery [place] vs. transplanted heart: [place] heart S/P CABG (coronary artery bypass graft) Z95.1
[2025-04-07 09:08] VITALS: BP 100/60; PULSE 78; BMI 32.1
== END 2025-04-07 09:47 | disposition home or self-care (01) ==
LOC: HO.HCS 08:43
PROVIDERS: PCP Internal Medicine; Visit Provider Internal Medicine Cardiovascular Disease
DX: I25.5 Ischemic cardiomyopathy (principal); I25.118 Atherosclerotic heart disease of native coronary artery with other forms of angina pectoris; Z95.1 Presence of aortocoronary bypass graft
CPT/HCPCS: 99214

== ENCOUNTER → 2025-04-07 08:42 | Outpatient (BNVA) | payer MEDICARE, SELFPAY | PROVIDERS: PCP Internal Medicine; Visit Provider Internal Medicine Cardiovascular Disease | DX: I25.5 Ischemic cardiomyopathy (principal); I25.118 Atherosclerotic heart disease of native coronary artery with other forms of angina pectoris; Z95.1 Presence of aortocoronary bypass graft; Z79.82 Long term (current) use of aspirin; Z79.01 Long term (current) use of anticoagulants; Z79.899 Other long term (current) drug therapy | CPT/HCPCS: 99212 ==

== ENCOUNTER 2025-05-12 12:29 | Outpatient (REF) | payer MEDICARE, SELFPAY ==
--- NOTE | ~2025-05-12 | US_ITS ---
CLINICAL HISTORY: R22.2 - Localized swelling, mass and lump, trunk --- Additional Notes or Special Instructions: on the LEFT SIDE Ultrasound soft tissues left supraclavicular Comparison: None Findings: Ultrasound evaluation limited to the left supraclavicular region in an area of palpable concern. The soft tissues are unremarkable. There is no mass or fluid collection. There is no lymphadenopathy. Impression: 1. Unremarkable examination. This document has been electronically signed by: Nyasia Louie MD on 05/12/2025 16:01:03
== END 2025-05-12 12:30 | disposition home or self-care (01) ==
LOC: HO.HMGCX 12:29
PROVIDERS: PCP Internal Medicine; Visit Provider Internal Medicine
DX: R22.2 Localized swelling, mass and lump, trunk (principal)
CPT/HCPCS: 76536

== ENCOUNTER → 2025-05-12 12:34 | Outpatient (BNV) | payer MEDICARE, SELFPAY | PROVIDERS: PCP Internal Medicine; Visit Provider Radiology Diagnostic Radiology | DX: R22.2 Localized swelling, mass and lump, trunk (principal) | CPT/HCPCS: 76536 ==

== ENCOUNTER 2025-07-05 09:27 | Outpatient (REF) | payer MEDICARE, SELFPAY ==
[2025-07-05 09:42] LABS: MANUAL DIFF FLAG NO
[2025-07-05 10:36] LABS: Hematocrit 33.5 % (42.0-52.0); Hemoglobin 11.3 g/dl (14.0-18.0); Imm Gran Abs Auto 0.01 X10*3/uL (0.00-0.03); Imm Gran Pct Auto 0.2 % (0.0-0.4); Lymphocytes Absolute Auto 2.5 X10*3/uL (1.2-4.9); Mean Corpuscular HGB Conc 33.7 g/dl (31.0-36.0); Mean Corpuscular Hemoglobin 28.9 pg (27.0-33.0); Mean Corpuscular Volume 85.7 fL (80.0-98.0); NRBC Abs Auto 0.000 X10*3/uL (0.0-0.012); NRBC Pct Auto 0.0 /100WBC (0.0-0.2); Platelet Count 185 X10*3/uL (160-400); Red Blood Count 3.91 X10*6/uL (4.60-5.80); White Blood Count 5.9 X10*3/uL (4.8-10.8)
[2025-07-05 11:10] LABS: Appearance Urine Clear; Glucose Urine UA Negative (Negative); PH 5.0 (5.0-9.0); Specific Gravity - Urine 1.015 (1.005-1.025); UMIC TRIGGER UACC YES
[2025-07-05 11:25] LABS: Alanine Aminotransferase 12 U/L (0-40); Albumin Level 4.5 g/dL (3.5-5.0); Alkaline Phosphatase 62 U/L (39-117); Anion Gap 11 (12-20); Aspartate Amino Transferase 27 U/L (5-37); Blood Urea Nitrogen 20 mg/dL (9-16); Calcium 9.9 mg/dL (8.4-10.2); Carbon Dioxide 23 mmol/L (22-29); Chloride 112 mmol/L (96-108); Cholesterol 89 mg/dL (<200); Estimated Glomerular Filt Rate 59; HDL Cholesterol 27 mg/dL (>40); Potassium 4.3 mmol/L (3.3-5.1); Sodium 142 mmol/L (135-145); Total Protein 7.2 g/dL (6.5-8.0); Triglycerides 64 mg/dL (<150)
== END 2025-07-05 09:28 | disposition home or self-care (01) ==
LOC: HO.LAB 09:27
PROVIDERS: PCP Internal Medicine; Visit Provider Internal Medicine
DX: Z00.00 Encounter for general adult medical examination without abnormal findings (principal); E78.00 Pure hypercholesterolemia, unspecified; E55.9 Vitamin D deficiency, unspecified; D64.9 Anemia, unspecified; R30.0 Dysuria
CPT/HCPCS: 36415; 80053; 80061; 81001; 81003; 82306; 84443; 85025

== ENCOUNTER 2025-07-12 12:28 | Outpatient (AMB) | payer MEDICARE, SELFPAY ==
--- NOTE | 2025-07-12 12:33 | A.OFFPC_ITS ---
Vital Signs 07/12/25 12:34 Height 5 ft 6 in Weight 194 lb 4 oz BMI 31.3 BP 116/72 Blood Pressure Location Lt brachial Position Sitting Pulse 60 Pulse Source Pulse Oximeter Pulse Oximetry (%) 95 Oxygen Delivery Method Room Air Intake Visit Reasons: annual exam - see comments Flight Engineer Required: No Accompanied by: Self / Same As Patient Allergies No Known Allergies Allergy (Verified 07/12/25 12:55) Medication List - Last Reconciled 07/12/25 by Mike Myers MD amlodipine 2.5 mg PO DAILY atorvastatin 80 mg PO BEDTIME 90 days cholecalciferol (vitamin D3) 50 mcg PO DAILY 90 days clopidogrel 75 mg PO DAILY 90 days isosorbide mononitrate ER 30 mg PO DAILY losartan 50 mg PO DAILY metformin 1,000 mg PO BID 90 days metoprolol succinate ER 25 mg PO BID omeprazole 40 mg PO DAILY spironolactone 25 mg PO DAILY trazodone 50 mg PO BEDTIME PRN 30 days Tobacco use date assessed: 07/12/25 Fall risk assessment: No Falls in past year Last assessed Fall Risk: 07/12/25 Dental Screening Dental Screen Date: 07/12/25 Did you have a dental visit in the last 12 months?: Yes Did you have a dental problem in the last 6 months where you did not have access to dental care?: No Was dental information given to patient?: Patient has dentist HPI annual exam - see comments HPI Details Patient comes in today for his annual physical examination States that he feels okay He denies any headaches or dizziness Denies any chest pains, no SOB No nausea/vomiting, no abdominal pain States that he has been experiencing recurrent diarrhea/loose stools usually after eating for the past month or so He does not recall being sick or taking any antibiotics recently He denies any acute urinary symptoms Adds that he still has the on and off 'swelling' on the left side of his neck (no pain) and is wondering if the US he did a few months ago showed anything there Needs his Trazodone Rx refilled - states that this is helping with his sleeping problems at night He had his follow up labs done last week - to discuss his results He had his colonoscopy done last year and will be due for repeat colonoscopy in 2028 [facility] Medical History Insomnia Cardiomyopathy Vitamin D deficiency Sickle cell trait Obesity (BMI 30-39.9) Eczema of lower leg Overweight (BMI 25.0-29.9) Ex-smoker Pure hypercholesterolemia Diabetes mellitus Coronary artery disease Surgical History H/O colonoscopy History of cardiac cath S/P CABG (coronary artery bypass graft) (~08/2020) Family History Mother Heart problem Diabetes Father Heart problem Diabetes Sister Ovary cancer Other Family history non-contributory Social History Housing: House Alcohol intake: former Patient Tobacco Use Status: Former Tobacco user Tobacco use type: Cigarette e-Cigarette/Vaping Use: Never Used Second Hand Smoke Exposure: Yes service: No Current occupational status: retired Cognitive needs: No Hearing needs: No Vision needs: Yes Questionnaire PHQ-9 Over the last 2 weeks, how often have you been bothered by any of the following problems? Depression Screening Interpretation: Negative Depression Screening Done: Yes Source: Developed by Drs. Zachary Winston, Kaylene Rich, Gabe Domínguez and colleagues, with an educational vinita from [employer]. Thrive Questionnaire Date Thrive assessed: 04/06/25 I am a: Patient What is your living situation today?: I have a steady place to live Within the past 12 months, did the food you bought not last and you didn't have the money to get more?: Never true Within the past 12 months, did you worry whether your food would run out before you got money to buy more?: Never true Do you have trouble paying for medicines?: No Do you have trouble getting transportation to medical appointments?: No Do you have trouble paying your heating and electricity bill?: No Do you have trouble taking care of your child, family member or friend?: No Do you have trouble with day-to-day activities such as bathing, preparing meals, shopping, managing finances, etc.?: No Are you currently unemployed and looking for a job?: No Are you interested in more education?: No Please select the resources that you would like help with: None Currently or been in a relationship where the following occur: No concerns reported THRIVE Score: 0 AUDIT C Alcohol Use Questionnaire (AUDIT-C) 1. How often do you have a drink containing alcohol?: Never 3. How often do you have six or more drinks on one occasion?: Never Total Score: 0 Score Reviewed/Action Taken: Yes VALERY-7 AMB Questionnaire VALERY-7 Date VALERY - 7 assessed: 04/06/25 Source: Developed by Drs. Zachary Winston, Kaylene Rich, Gabe Domínguez and colleagues, with an educational vinita from [employer]. Review of Systems Const Denies chills, Denies difficulty sleeping (Trazodone helping), Denies fatigue, Denies fever(s), Denies headache(s), Denies malaise and Denies weakness Eyes Denies blurry vision, Denies change in vision, Denies irritation and Denies itchy eyes ENT Details: (+) non-tender swelling over the left supraclavicular/left neck area Denies dysphagia, Denies dizziness, Denies otalgia, Denies headache(s), Denies nasal congestion, Denies neck pain, Denies odynophagia and Denies sore throat Card Denies chest pain, Denies rapid heart rate, Denies irregular heart rhythm, Denies palpitations and Denies dyspnea Resp Denies chest congestion, Denies cough, Denies dyspnea and Denies wheezing GI Denies abdominal pain, Denies bloating, Denies constipation, Denies dysphagia, Denies heartburn, Reports diarrhea (post-prandial - see HPI), Reports loose stools (post-prandial - see HPI), Denies nausea, Denies odynophagia and Denies vomiting Denies hematuria, Denies difficulty urinating, Denies dysuria, Denies urinary frequency and Denies urinary urgency Musc Denies back pain, Denies arthralgias, Denies joint swelling, Denies muscle weakness and Denies neck pain Skin/Breast Denies change in pigmentation, Denies lesions, Denies rash and Denies unusual bruising Neuro Denies dizziness, Denies headache(s), Denies paresthesias and Denies weakness Endo Denies fatigue and Denies palpitations Aller/Immun Denies itchy eyes and Denies wheezing Physical exam (Primary Care) Vital Signs: Last Vital Signs Pulse 60 07/12/25 12:34 BP 116/72 07/12/25 12:34 Pulse Ox 95 07/12/25 12:34 Oxygen Delivery Method Room Air 07/12/25 12:34 BMI result Body Mass Index 31.3 Tobacco/Smoking Status: Tobacco use Status Tobacco use date assessed 07/12/25 07/12/25 12:45 Patient Tobacco Use Status Former Tobacco user 07/12/25 12:34 Tobacco use type Cigarette 07/12/25 12:34 e-Cigarette/Vaping Use Never Used 07/12/25 12:34 Depression Screening Interpretation: Negative Thrive Assessment: Date of Thrive Assessment Date Thrive assessed 04/06/25 07/12/25 12:34 Currently or been in a relationship where the following occur: No concerns reported Const General: no acute distress, alert and awake Orientation/consciousness: patient oriented x3 HENMT Head: Yes normocephalic and Yes atraumatic Ears: external ears normal, TM's normal bilaterally and EAC's normal General nose exam: No nasal discharge present Face and sinus: Yes normal facial exam and Yes sinuses nontender Teeth and gingiva: dentition normal Throat: Yes posterior oropharynx normal and Yes tonsils normal (no TP congestion) Eyes Eyelids: Yes eyelids normal Conjunctivae: conjunctivae normal Pupils: Equal, round and reactive pupils present EOM: EOMs intact bilaterally Neck Other: (+) non-tender, soft, cystic? prominence over the left supraclavicular area Neck: Yes no lymphadenopathy and Yes supple Thyroid: Thyroid normal Resp Auscultation: clear to auscultation bilaterally, no rales and no wheezes Cardio Rate: regular rate Rhythm: regular rhythm Heart sounds: no murmurs GI Palpation (GI): Soft to palpation, nontender and No hepatosplenomegaly present Auscultation: normal bowel sounds General: Yes no CVA tenderness Back/Spine/Pelvis Back: no CVA tenderness Thoracic/Lumbar Spine: thoracic and lumbar spine normal to inspection Skin Lesions: no lesions Rashes: no rashes Neuro General: patient oriented x3, moves all extremities, no focal motor deficits and CN's II-XI intact bilaterally Cranial nerves: Yes Equal, round and reactive pupils present Cognition (Neuro): normal cognition Gait exam (Neuro): Normal gait present Extrem General: Yes no clubbing, cyanosis or edema Results Reviewed Results Reviewed: Laboratory Tests 03/22/25 07/05/25 07/05/25 09:25 09:35 09:40 WBC 5.9 Hgb 11.3 L Hct 33.5 L Plt Count 185 Sodium 142 Potassium 4.3 Creatinine 1.21 Estimated GFR 59 Fasting Glucose 121 H Hemoglobin A1c % 6.8 H Calcium 9.9 AST 27 ALT 12 Triglycerides 64 Cholesterol 89 LDL Cholesterol, Calc 50 HDL Cholesterol 27 L 25-OH Vitamin D Total 68.3 TSH 1.10 Ur Specific [place] 1.015 Urine Protein Negative Urine Glucose (UA) Negative Urine Blood Negative Urine Nitrite Negative Ur Leukocyte Esterase Trace H Coding Level of Care Code Est Pt Prev Care >65y(99024) Diagnoses Annual physical exam Z00.00 Coronary artery disease of [place] artery of [place] heart with stable angina pectoris I25.118 Associated angina: with stable angina Coronary Disease-Associated Artery/Lesion type: [place] artery [place] vs. transplanted heart: [place] heart Pure hypercholesterolemia E78.00 Type 2 diabetes mellitus without complication, without long-term current use of insulin E11.9 Diabetes mellitus complication status: without complication Diabetes mellitus assisted insulin use: without medical terminologist use Diabetes mellitus type: type 2 Chronic obstructive pulmonary disease, unspecified COPD type J44.9 COPD type: unspecified COPD Supraclavicular mass R22.2 Eczema of lower leg L30.9 Vitamin D deficiency E55.9 Sickle cell trait D57.3 Postprandial diarrhea K52.9 Insomnia, unspecified type G47.00 Insomnia type: unspecified Obesity (BMI 30-39.9) E66.9 Assessment & Plan Assessment & Plan (1) Annual physical exam: Code(s): Z00.00 - Encounter for general adult medical examination without abnormal findings Category: Medical Plan: Results of his labs done last week reviewed and discussed with patient He had his colonoscopy done last year and will be due for repeat colonoscopy in 2028 (2) Coronary artery disease: Comment: Status post posterolateral STEMI. He underwent bypass surgery with AYALA to LAD and left radial graft to OM in August 2020. Repeat cardiac catheterization on 01/17/2021 revealed patent grafts with diffuse coronary artery disease - recommend continuing aggressive medical management and risk factor modification Code(s): I25.10 - Atherosclerotic heart disease of [place] coronary artery without angina pectoris Category: Social Hx Qualifiers: Associated angina: with stable angina Coronary Disease-Associated Artery/Lesion type: [place] artery [place] vs. transplanted heart: [place] heart Qualified Code(s): I25.118 - Atherosclerotic heart disease of [place] coronary artery with other forms of angina pectoris Plan: S/P posterolateral STEMI - he had bypass surgery with AYALA to LAD and left radial graft to OM in August 2020 Repeat stress testing was followed by cardiac catheterization due to his complaints of recurrent chest pain & discomfort following his CABG - repeat studies did not show any significant graft disease.? He has severe disease in the [place] coronary arteries and had spasm in the radial graft His symptoms of chest pain and discomfort improved with the addition of Amlodipine by cardiology Echocardiogram done on 03/28/23 revealed moderately decreased left ventricular systolic function with EF between 35 to 40%, with some evidence of wall motion abnormalities but no valvular pathology seen. He had repeat stress testing done in April 2023 - EKG stress test came out normal; nuclear imaging studies showed (+) transmural infarction involving the basal to mid inferolateral/adjacent lateral wall. Gated LVEF is 64% during stress and 48% during rest. Transient ischemic dilatation not present His most recent echocardiogram done on 01/01/2024 revealed (+) mildly reduced LV ejection fraction 45-50% with impaired relaxation filling pattern with underlying regional wall motion abnormality consistent with coronary artery disease. Cardiac valvular dopplers are within normal limits, RV systolic pressure is normal and there are no gross pericardial effusion Continue Clopidogrel 75 mg QD, Aspirin 81 mg QD, Metoprolol ER 25 mg QD and Entresto 24-26 mg BID - Amlodipine was discontinued when patient was started on Entresto Follow up with cardiology as scheduled (3) Pure hypercholesterolemia: Code(s): E78.00 - Pure hypercholesterolemia, unspecified Category: Medical Plan: His cholesterol levels remain at or near goal on his recent labs Reinforced low cholesterol diet Continue Atorvastatin 80 mg QD Will recheck his labs and fasting lipids in 4 months for follow-up (4) Diabetes mellitus: Code(s): E11.9 - Type 2 diabetes mellitus without complications Category: Medical Qualifiers: Diabetes mellitus complication status: without complication Diabetes mellitus medical terminologist insulin use: without medical terminologist use Diabetes mellitus type: type 2 Qualified Code(s): E11.9 - Type 2 diabetes mellitus without complications Plan: His HgbA1c was at 6.8% when last checked in March 2025 (was previously at 6.9% a few months prior) - goal is at least <7.0% but ideally <6.5% Reinforced diabetic diet Continue Metformin 1000 mg BID and Farxiga 5 mg QD (5) COPD (chronic obstructive pulmonary disease): Code(s): J44.9 - Chronic obstructive pulmonary disease, unspecified Category: Medical Qualifiers: COPD type: unspecified COPD Qualified Code(s): J44.9 - Chronic obstructive pulmonary disease, unspecified Plan: Controlled Continue Stiolto Respimat 2.5-2.5 mg 2 puffs QD and Albuterol HFA 2 puffs 4 times a day as needed Follow up with pulmonary as scheduled (6) Supraclavicular mass: Code(s): R22.2 - Localized swelling, mass and lump, trunk Category: Medical Plan: He was reassured that his soft tissue US of the neck done a few months go came back completely normal/unremarkable (7) Eczema of lower leg: Code(s): L30.9 - Dermatitis, unspecified Category: Medical Plan: Continue Fluocinonide 0.05% ointment PRN Follow up with dermatology (Dr. Morrison) as scheduled or as needed (8) Vitamin D deficiency: Code(s): E55.9 - Vitamin D deficiency, unspecified Category: Medical Plan: Continue Vitamin D3 2000 units QD (9) Sickle cell trait: Code(s): D57.3 - Sickle-cell trait Category: Medical Plan: Patient tested POSITIVE for sickle cell trait when he was sent for sickle cell testing as he's had a few family members test positive recently He has been advised that with sickle cell trait, continuing observation and surveillance is the only recommended course of action with no other interventions required as there are really no medical conditions or problems associated with sickle cell trait (10) Postprandial diarrhea: Code(s): K52.9 - Noninfective gastroenteritis and colitis, unspecified Category: Medical Plan: Patient is advised that he is currently not on any medications aside from his Metformin (which he has been on for a few years now) deyvi could be causing his recent postprandial diarrhea/loose stools Have advised him to try avoiding anything with dairy for now Will have him try taking some OTC Probiotics for a few weeks and if his diarrhea persists with daily Probiotic Tx, will then need to look into his bowel issues further (11) Insomnia: Code(s): G47.00 - Insomnia, unspecified Category: Medical Qualifiers: Insomnia type: unspecified Qualified Code(s): G47.00 - Insomnia, unspecified Plan: Sleep hygiene reinforced He was taking Melatonin 10 mg up to 3 capsules Q HS PRN in the past but it is no longer effective Continue Trazodone 50 mg Q HS PRN - Rx refilled (12) Obesity (BMI 30-39.9): Code(s): E66.9 - Obesity, unspecified Category: Medical Plan: Reinforced diet/exercise as tolerated/lose weight Plan Follow up in 4 months Orders: Orders Lipid Panel 4 Months E78.00 - Pure hypercholesterolemia, unspecified Complete Blood Count Auto Diff 4 Months D64.9 - Anemia, unspecified Comprehensive [place]. Panel Fast 4 Months E78.00 - Pure hypercholesterolemia, unspecified Microalbumin, Random (w Creat) 4 Months E11.9 - Type 2 diabetes mellitus without complications Hemoglobin A1c 4 Months E11.9 - Type 2 diabetes mellitus without complications TSH reflex Free T4 4 Months E78.00 - Pure hypercholesterolemia, unspecified UA CC w/rflx Micro + Cult 4 Months R30.0 - Dysuria Vitamin B12 and Folate 4 Months E53.8 - Deficiency of other specified B group vitamins Vitamin D 25-OH Total 4 Months E55.9 - Vitamin D deficiency, unspecified Medications: New lactobacillus combo no.11 (Probiotic) do not crush/chew/cut; swallow whole OR may open and sprinkle in cold drink/food 1 cap PO DAILY 90 caps 3RF postprandial diarrhea 90 days Refilled trazodone 50 mg PO BEDTIME PRN 30 tabs 3RF sleep/insomnia 30 days
[2025-07-12 12:34] VITALS: BP 116/72; PULSE 60; O2SAT 95; BMI 31.3
== END 2025-07-12 13:14 | disposition home or self-care (01) ==
LOC: HO.HMCH 12:28
PROVIDERS: PCP Internal Medicine; Visit Provider Internal Medicine
DX: Z00.00 Encounter for general adult medical examination without abnormal findings (principal); E11.620 Type 2 diabetes mellitus with diabetic dermatitis; J44.9 Chronic obstructive pulmonary disease, unspecified; E66.9 Obesity, unspecified; Z68.31 Body mass index [BMI] 31.0-31.9, adult; I25.118 Atherosclerotic heart disease of native coronary artery with other forms of angina pectoris; E78.00 Pure hypercholesterolemia, unspecified; R22.2 Localized swelling, mass and lump, trunk; L30.9 Dermatitis, unspecified; E55.9 Vitamin D deficiency, unspecified; D57.3 Sickle-cell trait; K52.9 Noninfective gastroenteritis and colitis, unspecified

== ENCOUNTER → 2025-07-12 12:28 | Outpatient (BNVA) | payer MEDICARE, SELFPAY | PROVIDERS: PCP Internal Medicine; Visit Provider Internal Medicine | DX: Z00.00 Encounter for general adult medical examination without abnormal findings (principal); I25.118 Atherosclerotic heart disease of native coronary artery with other forms of angina pectoris; E78.00 Pure hypercholesterolemia, unspecified; E11.9 Type 2 diabetes mellitus without complications; J44.9 Chronic obstructive pulmonary disease, unspecified; R22.2 Localized swelling, mass and lump, trunk; L30.9 Dermatitis, unspecified; E55.9 Vitamin D deficiency, unspecified; D57.3 Sickle-cell trait; K52.9 Noninfective gastroenteritis and colitis, unspecified; G47.00 Insomnia, unspecified; E66.9 Obesity, unspecified; Z68.31 Body mass index [BMI] 31.0-31.9, adult | CPT/HCPCS: 99397 ==